=== PATIENT | male | born 1930 | race Caucasian/White ===

== ENCOUNTER 2018-06-04 09:36 | Observation (INO) | payer MEDICARE, OTHER ==
[2018-06-04] MEDS ORDERED: Diazepam TAB(*) 5 MG ONE (10:18)
[2018-06-04] MEDS ORDERED: ceFAZolin VIAL 1 GM in NS *SYRINGE * * 10 ML ONE (11:00)
[2018-06-04] MEDS ORDERED: ceFAZolin* 2 GM* X ONE DOSE - OR, MCH (Pyxis) (Duplex) IVPB (11:00)
[2018-06-04] MEDS ORDERED: Lidocaine 1% INJ* 10 MG/ML 30 ML SDV ONE (11:29)
[2018-06-04] MEDS ORDERED: fentaNYL* 50 MCG/ML 2 ML VIAL (100 MCG VIAL) ONE (11:29)
[2018-06-04] MEDS ORDERED: Midazolam* 1 MG/ML 10 ML VIAL (10 MG) ONE (11:29)
[2018-06-04] MEDS ORDERED: Iohexol 300* (CONTRAST) 10 ML SDV ONE (11:51)
[2018-06-04] MEDS ORDERED: Acetaminophen TAB* 325 MG PO PRN (13:18)
[2018-06-04] MEDS ORDERED: oxyCODONE/Acetamin 5/325 MG* TAB PO PRN (13:18)
[2018-06-04] MEDS: ceFAZolin 1 GM VIAL(*) 1 GM in NS 0.9% 50 ML* 50 ML IVPB SCH (20:28)
--- NOTE | 2018-06-04 20:59 | OP ---
DATE OF OPERATION: 06/04/18 - ROOM #443 DATE OF : 34 SURGEON: Earl Whitt MD. ANESTHESIA: Local anesthesia with conscious sedation. PRE-OP DIAGNOSIS: Atrial fibrillation, single-chamber pacemaker, ventricular lead fracture. POST-OP DIAGNOSIS: Atrial fibrillation, single-chamber pacemaker, ventricular lead fracture. OPERATIVE PROCEDURE: Right ventricular lead revision. ESTIMATED BLOOD LOSS: Nil. COMPLICATIONS: None. 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 He has chronic atrial fibrillation. The patient had a generator change of his pacemaker in November of 2016. He is followed by my office. The patient's right ventricular lead had shown increased noise consistent with lead fracture, right ventricular lead revision was recommended. DESCRIPTION OF PROCEDURE: The patient was brought to the procedure room in a fasting state. Informed consent had been obtained prior to the procedure. All labs had been reviewed. The patient's chest x-ray showed that he had a single lead to his right ventricle. The patient had a venogram done of the left veins showing patency of his axillary innominate veins. The patient's left pectoral area was prepped and draped in the usual fashion. 1% lidocaine was used for local anesthesia. A 4.5 cm incision was made at the superior aspect of the pacemaker. Blunt dissection was carried onto the fibrous sheath. The fibrous sheath was opened and the pacemaker was removed from the pocket. The pacemaker was detached from the ventricular lead. The ventricular lead is a [employer], model 2088TC , serial number [id number]. The right ventricular lead was abandoned and capped and sutured into the pocket. The axillary vein was entered by a modified Seldinger technique using ultrasound guidance. A guidewire was placed. Over the guidewire, a 7 Macedonian sheath introducer was placed, through which a right ventricular lead was advanced to the right ventricular septum. The new pacemaker lead is a [employer], model 2088TC, serial number [id number]. It had an R-wave sensitivity of 4.1, impendence 605 ohms, threshold 0.7 volts at 0.4 msec. The right ventricular lead was sutured to the pectoral fascia. The pocket was expanded using blunt dissection. The generator that was previously removed was attached to the new right ventricular lead. The existing pacemaker is a [employer], model VK0013. Device was placed in the pocket, the surgical incision was closed in 3 layers. The patient tolerated the procedure well with no complications. [id number]/[facility] #: [id number] [place]
[2018-06-05] MEDS: ceFAZolin 1 GM VIAL(*) 1 GM in NS 0.9% 50 ML* 50 ML IVPB SCH ×3 (05:09→11:41)
[2018-06-05 10:10] LABS: INR 1.1 (0.77-1.02)
--- NOTE | 2018-06-05 11:13 | DS ---
AMENDED REPORT NOW INCLUDES COSIGNER DESIGNATION DISCHARGE SUMMARY: DATE OF ADMISSION:06/04/2018 DATE OF DISCHARGE: Tentative Discharge date 06/05/2018 pending no complications. PRIMARY PROFESSIONAL CASTER: Dr. Ealr Whitt * (dictated by Keerthi Jimenez NP). PRIMARY PHYSICIAN: Dr. Gallardo with [facility]. ADMITTING DIAGNOSES: 1. Single chamber pacemaker with increase noise noted on recent device check suggestive of right ventricle lead fracture, here for right ventricle lead revision. 2. History of atrial fibrillation, CHADS-VASc 4, on Coumadin with goal INR 2 to 3, followed by [facility] Clinic at [facility] 3. History of hypertension, on losartan and nadolol therapy. 4. History of severe aortic stenosis, compensated on exam. DISCHARGE DIAGNOSES: 1. Single chamber pacemaker with history of right ventricle lead fracture, status post right ventricle lead revision on 06/04/[address] Earl Whitt. 2. History of atrial fibrillation, historically on Coumadin therapy, goal INR 2 to 3 3. Will be discharged home on prior Coumadin dose 5mg/day. INR is followed by [facility]. 3. 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 4. History of severe aortic stenosis, will follow up with Dr. Whitt 06/12/18. PROCEDURES PERFORMED: The patient had right ventricle lead revision performed by Dr. Earl Whitt on 06/04/18 due to history of tachy-lulú syndrome with single chamber pacemaker in situ, recent device check revealed increased noise consistent with lead fracture. The prior right ventricle lead was [employer] model #2088TC, serial #[id number]. The right ventricle lead was abandoned, capped, and sutured into pocket. The new right ventricle lead was placed into the right ventricle septum. New pacemaker lead is [employer] model 2088TC, serial #[id number]. The generator that was previously removed was attached to the new right ventricular lead. The existing pacemaker is a [employer]. The patient tolerated the procedure with no complications. This morning' s chest x-ray to rule out pneumothorax is pending. Dr. Earl Whitt personally reviewed download this morning to evaluate thresholds. COURSE OF HOSPITAL STAY: This is a pleasant 88-year-old male patient who follows with Dr. Earl Whitt of our practice due to history of tachy-lulú syndrome with single chamber [employer] pacemaker in situ. There was evidence of increased noise consistent with right ventricle lead fracture. Subsequently, the patient presented to [facility] for elective RV lead revision on 06/04/18. Prior to having procedure performed, he was bridged with Lovenox therapy. He underwent the above-mentioned procedure, post-procedure was transferred [facility] [place] where he has been monitored on telemetry. There were no events overnight. He offers no complaints. He is resting in his room, eating breakfast upon entering this morning with at bedside. He denies chest pain, dizziness, lightheadedness, palpitations, chest pain, incisional pain, or syncope. He has been up and ambulating with no complications. Most recent set of vital signs demonstrated a temperature of 98.4, pulse 70, respirations 16, oxygenation 97% on room air, blood pressure 136/63. This morning's chest x-ray is pending as is INR. Pending no complications, we anticipate discharging the patient home today in stable condition on low- cholesterol, low-fat diet. He is to follow up with Dr. Earl Whitt on 06/12/18 at 1 p.m. at our medical office building. I personally spoke to Elo at [facility] and updated her with information. She is aware that the patient will be going home on Coumadin without a bridge. His CHADS-VASc is 4 and he denies any history of TIA or CVA. He actually had bleeding complications over the weekend on Lovenox bridge from previous tooth extraction site. Pacemaker incision was inspected. No evidence of pocket hematoma. Edges are well approximated with randall in situ. Scant dried blood noted on dressing, which was changed. DISCHARGE RESTRICTIONS: No driving until further directed and follow up on with Dr. Earl Whitt. The patient was instructed to not shower for 48 hours. He may use sponge bath. He is to not saturate incisional site for 48 hours with water. He is to change dressing daily. He is to keep incision clean , dry, and intact for 2 weeks. He is instructed to use arm sling as directed for 3 weeks. He is to not lift more than 10 pounds for 2 weeks. He is to not lift more than 15 pounds for 8 weeks. He is to not lift left arm above shoulder for 2 weeks. He is to not lift left arm above head for 8 weeks. DISCHARGE MEDICATIONS; Per Discharge Med Rec. Please note he is to start Coumadin 5mg PO daily starting tonight. I personally called Elo with [facility] and updated her with dosing and today's INR. Patient has a standing prescription for PT/INR and is to get INR drawn on Monday as previously planned. NEW MEDICATIONS: Keflex 250 mg p.o. t.i.d. for 3 days was faxed into [facility]. Otherwise, he is to resume all prior home medications with the exception of Lovenox. Discharge Condition; stable. CXR this morning was negative for pneumothorax Dr. Earl Whitt agrees with the above assessment and plan. KEERTHI JIMENEZ NP [id number]/[facility] #: [id number] [place]
[2018-06-05] MEDS ORDERED: Iohexol 350* (CONTRAST) 500 ML MDV IV ONE (14:17)
[2018-06-05 14:40] LABS: ABS Basophils 0 10^3/ul (0-0.2); ABS Eosinophils 0.1 10^3/ul (0-0.6); ABS Lymphocytes 0.8 10^3/ul (1.0-4.8); ABS Monocytes 0.6 10^3/ul (0-0.8); ABS Neutrophils 5.6 10^3/ul (1.5-7.7); ABS Nucleated RBC 0 10^3/ul; Hematocrit 32 % (42-52); Lymphocyte % 10.5 %; Mean Corpuscular HGB Conc 34 g/dl (31-36); Mean Corpuscular Hemoglobin 41 pg (27-31); Mean Corpuscular Volume 120 fL (80-94); Mean Platelet Volume 8.2 fL (7.4-10.4); Nucleated Red Blood Cells % 0; Platelet Count 487 10^3/ul (150-450); Red Blood Count 2.71 10^6/ul (4.00-5.40); Red Cell Distribution Width 13 % (10.5-15); White Blood Count 7.1 10^3/ul (3.5-10.8)
[2018-06-05 14:44] LABS: BUN/Creatinine Ratio 20.2 (8-20); Calcium 9.3 mg/dL (8.6-10.3); EGFR African American 81.9 (>60); EGFR Non-African American 67.7 (>60); Potassium 3.9 mmol/L (3.5-5.0)
--- NOTE | 2018-06-05 15:49 | CONS ---
CONTINUATION ADDENDUM NOW INCLUDED ON THIS REPORT CC: Dr. Gallardo; Dr. Be; Dr. Whitt; Dr. Thomas * CONSULTATION REPORT: DATE OF CONSULT: 06/05/18 PRIMARY CARE PROVIDER: Dr. Gallardo. REASON FOR CONSULT: Possibility of TIA. HISTORY OF PRESENT ILLNESS: Walter Figueroa is an 88-year-old male who underwent pacemaker lead revision by Dr. Whitt yesterday on 06/04/18. He has a history of atrial fibrillation and usually is on Coumadin. He also has history of recent tooth surgery in the left mandibular region and due to that, his anticoagulation with Coumadin was interrupted last week. Patient stated that he was bridged subsequently with Lovenox, but 2 or 3 days into Lovenox treatment he bled in the area post the tooth surgery and anticoagulation had to be stopped from 06/01/18 till now. He has not taken Lovenox for over the weekend and on Monday, he was scheduled for the lead revision with Dr. Whitt. The lead revision went very well on 06/04/18 and patient was ready to go home, dressed up in his clothes in his hospital room, when family noted that the patient had troubles with word finding. He forgot the name of his medication that was Lovenox. That was ongoing for approximately 45 minutes until it resolved. Patient himself stated that he felt like he could not find words, but he also felt like visual changes with visual scotomas, as he would get when he had migraines in the past. Patient has a history of migraines when he was younger and those usually were associated with tingling in the left arm, going to the left chest, and then subsequent visual scotomas and a headache. Patient stated that later in age he would occasionally develop visual scotomas, but not that much of a headache. Today, he also had the scotomas together with the symptoms of speech difficulty and that resolved within 45 minutes. By the time he was evaluated by myself, his symptoms are resolved. Dr. Whitt asked the medicine service to see patient in consultation in regards to that. Patient also was seen by Dr. Thomas in consultation from neurology who recommended for the patient to stay for another 24 hours. Patient's discharge is going to be held and he is going to be continued to be admitted to medicine service on telemetry floor. PAST MEDICAL HISTORY: 1. History of atrial fibrillation, which is chronic. 2. History of status post pacemaker placement. Currently, patient is "99% paced." 3. History of BPH. 4. history of myelodysplastic syndrome, on hydroxyurea per Dr. Be. 5. Hypertension. ALLERGIES: "Cat dander, SOTALOL, RADHA INHIBITORS." RADHA INHIBITORS cause cough, the allergy to SOTALOL is unknown. FAMILY HISTORY: Reviewed and noncontributory. SOCIAL HISTORY: Patient lives with his , who is his surrogate. He drinks a glass of alcohol a day. He denies any tobacco or drug use. REVIEW OF SYSTEMS: Apart from the above-mentioned, patient denies any headache. He denies any chest pain or shortness of breath. He has sutures in the left subclavian area status post pacemaker lead revision with no significant pain. All the other 12 systems are reviewed with the patient and were, otherwise, negative. PHYSICAL EXAM: Blood pressure of 137/60, heart rate of 70 and regular, respiratory rate 16, oxygen saturation 97% on room air , temperature 97.8. General: Patient is a very pleasant 88-year-old male who is not in acute distress. Alert and oriented x3. HEENT: Pupils are equal, reactive to light and accommodation. Oropharynx clear, mucosa moist. Neck: Supple. No JVD. No bruits bilaterally. Cardiovascular: Regular rate and rhythm. No murmur. Respiratory: Clear to auscultation bilaterally. CONTINUATION ADDENDUM: PHYSICAL EXAM: General: The patient is a pleasant 88-year-old male, who is in no acute distress; alert, awake, and oriented x3. HEENT: Head atraumatic, normocephalic. Eyes: Pupils equal, reactive to light and accommodation. Oropharynx is clear. Mucosa moist. Neck: Supple. No JVD. No bruits bilaterally. Cardiovascular: Regular rate and rhythm with 3/6 systolic ejection murmur radiating to bilateral carotids. Respiratory: Clear to auscultation bilaterally. Abdomen: Soft, nontender. Bowel sounds present in all 4 quadrants. Extremities: There is no edema. Pulses are 2+ bilaterally. No clubbing or cyanosis. Neuro Evaluation: Speech clear. Cranial nerves II through XII grossly intact. Motor strength is 5/5 bilaterally. The patient has limitation of left upper extremity movement due to the recent pacemaker surgery. The patient's finger- to-nose is non-dysmetric, once again also with limitation of the restriction on the left upper extremity. On evaluation of the skin, the patient's pacemaker site is sutured with no evidence of dehiscence or cellulitis. The patient noted that he had an erythema on the bridge of his nose. He does have slight erythema there, possibly in a small area of hives approximately 2 cm in diameter. He had been just started on cefazolin. At this point, we will continue clindamycin for another couple of days postpacemaker and not use cephalosporin. Psychiatric Evaluation: The patient is alert and oriented x3 with no evidence of anxiety or depression. DIAGNOSTIC STUDIES/LAB DATA: Showed white blood cell count of 7.1, hemoglobin of 11.0, hematocrit of 32, MCV of 120, and platelets of 487. Sodium 135, potassium 3.9, chloride 99, carbon dioxide 29, BUN 21, and creatinine 1.04. The patient's EKG showed underlying AFib/flutter with paced QRS with a heart rate of 74 beats per minute, underlying right bundle branch block. Brain CT: Mild age appropriate chronic findings as described above without ____ __"acute intracranial abnormality ". ASSESSMENT AND PLAN: 1. The patient had an episode of problems with difficulty word finding, may be some slurred speech as described by her family with visual scotomas. At this point, the differential includes atypical migraine versus transient ischemic attack. With the patient's interrupted anticoagulation in the past week, it is difficult to determine. The patient cannot have an MRI due to his pacemaker. At this point, I appreciate Dr. Thomas's consultation and recommendation. The patient is to be observed on telemetry monitored bed with neuro checks for the next 24 hours. The patient is going to undergo CT angiogram of the head and neck, which has not been done yet. His brain CT is negative, which allows us to start him on bridging with anticoagulation with Lovenox. He is also going to be continued on Coumadin on a daily basis. 2. For the patient's history of atrial fibrillation and hypertension, losartan and nadolol are going to be continued as previously taken. 3. For deep vein thrombosis prophylaxis, the patient is going to be placed on Lovenox and Coumadin as mentioned above with INRs to be obtained daily. TIME SPENT: Approximately 65 minutes were spent on consultation of this patient , more than half of that time was spent on [id number] with the patient during the interview and physical exam. Than you very much for allowing our service to see your patient in consultation. We will follow with the patient on a daily basis. [id number]/[facility] #: [id number]- [id number]/[facility] #: [id number] [place]
[2018-06-05] MEDS: Enoxaparin(*) 80 MG/0.8 ML SYR SUBCUT SCH (16:14)
--- NOTE | 2018-06-05 16:22 | CONS ---
CC: Dr. Earl Whitt; Dr. Gallardo * CONSULTATION REPORT: DATE OF CONSULT: 06/04/18 PRIMARY CARDIOLOGY: Dr. Earl Whitt PRIMARY CARE PHYSICIAN: Dr. Gallardo REASON FOR CONSULT: Acute onset, brief episode of vision symptoms and speech difficulties. HISTORY OF PRESENT ILLNESS: Mr. 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 He had a right ventricle lead fracture and underwent an elective lead revision on 06/04. Prior to the procedure last week, he had been off of Coumadin from Monday. Week prior to Monday, he had a dental procedure, was started on Lovenox to bridge, but developed bleeding after the dental procedure and went off of the Lovenox over the weekend. It was felt he was safe to stay off of the Lovenox until Monday when he had his procedure. He was getting ready for discharge today when he was placed back on Coumadin with no Lovenox bridge with a goal INR of 2 to 3. Right before he was to leave, he developed acute onset of some positive scotoma that lasted a few minutes followed by some difficulty with his speech. His states that he had trouble getting words out. He is unclear whether he was trying to get words out or had difficulty thinking of the words he wanted to say. There was also the possibility of a very subtle left facial droop at that time. Symptoms lasted for 20 to 30 minutes per the family and then resolved. The patient notes a history of migraine headaches dating back many years. Most recently, he has not had any migraine pain, but he will occasionally get similar scotoma that last for a few minutes and then resolve. They are not associated with any other symptoms including no associated speech difficulties, no vision loss, no double vision, no problems speaking or swallowing, no focal numbness; tingling; or weakness. These happen occasionally. Typically, he will close his eyes for a few minutes and they will go away. He states that the initial symptoms today were very similar in nature to his migrainous phenomena, but the speech difficulties afterwards were atypical. He denies any prior history of TIA or stroke. His CHADs vascular score is 4. He has done well post procedure in the hospital, tolerated the procedure well, had no incisional pain. During his stay here, he denied any chest pain, any shortness of breath, any palpitations or dizziness, any lightheadedness. He had been ambulating fine with no difficulties. Vital signs were stable and he was ready for discharge. He was to be discharged home on a low-cholesterol, low-fat diet and he had instructions not to drive until further recommendations. He also has a followup appointment with Dr. Whitt on 06/12/18. He was to be followed by Elo at [facility] upon discharge. Currently, the patient is back to his usual state of health. His and son are at the bedside and confirm his story. His did witness the events. The patient specifically denies any associated symptoms, other than the scotoma and speech difficulties. He is unaware of any facial droop or focal numbness, tingling, or weakness. Again, never had any speech difficulties like this in the past. He has not developed any headache after the events and currently feels back to his baseline. He is ready to go home. PAST MEDICAL HISTORY: As noted above. PAST SURGICAL HISTORY: Includes the pacemaker placement and lead revision. MEDICATIONS: His discharge medications include Coumadin 5 mg p.o. daily starting tonight, Keflex 250 mg p.o. t.i.d. for 3 days. He was instructed to resume all of his prior medications including terazosin 2 mg at bedtime, nadolol 40 mg p.o. daily, losartan 50 mg daily, hydroxyurea 500 mg, calciferol. ALLERGIES: His allergies are to cat dander, SOTALOL, and RADHA INHIBITORS. FAMILY HISTORY: Negative for any strokes or heart attacks. His father of old age. REVIEW OF SYSTEMS: As noted above, he denies any loss of consciousness, headaches, vision changes other than the positive scotoma, hearing loss, swallowing problems, focal numbness; tingling; or weakness, chest pain, palpitations, shortness of breath, dyspnea on exertion, nausea, vomiting, diarrhea, constipation, abdominal pain, musculoskeletal pain, dysuria, frequency , urgency. He specifically denies any prior seizure risks including no history of head trauma, no issues, no family history of seizures, no prior seizures, no history of meningitis. PHYSICAL EXAM: Vital Signs: Temperature is 97.8. He has been afebrile. Blood pressure 136/63 to 137/60, pulse of 70, respiratory rate of 16, satting 97 % on room air. General: He is a well-nourished, well-developed gentleman, in no acute distress. He is sitting in his chair by the hospital bed. His family is at the bedside. He is well dressed, well groomed. He is very pleasant. HEENT: He is normocephalic, atraumatic. Sclerae are anicteric. Mucous membranes are moist. Oropharynx is clear. Good dentition. Nares are patent. Neck is supple. No thyromegaly, no carotid bruits, no meningismus. Chest: Clear to auscultation bilaterally. Cardiovascular: Regular rate and rhythm currently with a 2/6 systolic ejection murmur. Abdomen is soft and nontender. Extremities: There is no clubbing, cyanosis, or edema. His skin is warm and dry without lesions or bruising. His incision site in the left chest-shoulder area is clean, dry, and intact with bandage. On neurologic examination, he is awake, alert, oriented x3. His speech is fluent. There is no dysarthria. Repetition is intact. Recall of recent and remote events is intact. Vocabulary is intact. His mood is dysthymic. Affect and mood congruent. Cranial nerves II through XII: Pupils are equally round and reactive to light and accommodation. Extraocular muscles are intact with no nystagmus or diplopia. No ptosis is noted. Visual lira are full to confrontation. Facial sensation is intact to light touch. Face: He has a mild flattening of the right nasolabial fold. No left-sided facial weakness. Hearing is diminished bilaterally, but intact. Palate raises symmetrically. Tongue is midline. Sternocleido-mastoid and trapezius are 5/5. Motor Exam: He is 5/5 throughout with good tone and bulk. No drift is apparent in the upper and lower extremities. DTRs are down throughout, 1+ at the biceps, absent at the brachioradialis, absent at the patella, absent at the ankles. His sensation is intact to light touch and pinprick in all 4 extremities without focal deficits. [id number] and rapid alternating movements are intact without dysdiadochokinesia or dysmetria, no resting or action tremor. Gait: He has a normal gait. Good arm swing. Wide based. Romberg: Minimal sway with eyes open and close. DIAGNOSTIC STUDIES/LAB DATA: Lab work includes a CBC with diff with a hemoglobin of 10.5, hematocrit of 30, MCH of 42, platelet count of 455, lymphocyte percent of 8.5, absolute lymphocytes, 0.6. INR of 1.10, PTT of 53.1. CT scan of the brain is pending. ASSESSMENT AND PLAN: Mr. Watson is an 88-year-old gentleman with a history of atrial fibrillation with a pacemaker, history of hypertension, admitted to the hospital yesterday for lead fracture and revision. He underwent the procedure yesterday and did very well postoperatively. He has tolerated the procedure well. Prior to admission several days ago, he was taken off of his Coumadin for a dental procedure. Subsequently, put on Lovenox but after the dental procedure developed bleeding around his gums and teeth and the Lovenox was stopped over the weekend with the plan to resume Coumadin after his procedure. He does have a history of migrainous headaches and what sound like ophthalmic migraines with no headache that occur occasionally. Today, right before he was to go home, he developed symptoms similar in nature with positive scotoma, which he typically has. No headache associated with that. Subsequently, though, he developed approximately 30 minutes of some speech difficulties, possible left-sided facial droop per the which has now resolved. His speech is completely resolved. He feels back to baseline. Examination is, otherwise, nonfocal. Plan: In light of his history of atrial fibrillation, in light of the fact that he has been off of Coumadin for several days and is currently subtherapeutic, and the atypical nature of his symptoms, I do think we need to rule out several things. My suspicion, given the description of the events, is that he had another migrainous episode, but this time was associated with some speech difficulties as well. With that said, I cannot fully rule out a transient ischemic attack. The plan is to get a CT of the head to look for any evidence of bleeding. Assuming it is negative, we will plan to start Lovenox to bridge him until his Coumadin is therapeutic. I will get a CT angiogram of the head and neck to look for any evidence of large-vessel disease, atherosclerosis, or stenosis. I spoke with the blueprint cutter. At this point, given the fact that we are going to star him on full-strength anticoagulation and bridge him with Lovenox, I do not think there is any need to pursue an echocardiogram as it would not change attendant at this time. We plan to monitor him on telemetry overnight. We will monitor him with frequent neuro checks to look for any recurrent events. Consider further workup as necessary. If his CT of the head is negative, if his CT angiogram of the head and neck is negative, and if he does well overnight with no further events, I do think it is safe to send him home tomorrow with a Lovenox bridge until his Coumadin is therapeutic. I will be happy to follow him as an outpatient for his history of migraine headaches. I will continue to follow along and make further recommendations as necessary. Thank you for the opportunity to participate in the care of this very interesting patient. [id number]/[facility] #: [id number] [facility]
[2018-06-05] MEDS ORDERED: Warfarin TAB(*) 2.5 MG PO SCH (17:00)
--- NOTE | 2018-06-05 18:34 | CONS ---
CC: Dr. Whitt; Dr. Thomas CONSULTATION REPORT: ADDENDUM: DATE OF CONSULT: PHYSICAL EXAM: General: The patient is a pleasant 88-year-old male, who is in no acute distress; alert, awake, and oriented x3. HEENT: Head atraumatic, normocephalic. Eyes: Pupils equal, reactive to light and accommodation. Oropharynx is clear. Mucosa moist. Neck: Supple. No JVD. No bruits bilaterally. Cardiovascular: Regular rate and rhythm with 3/6 systolic ejection murmur radiating to bilateral carotids. Respiratory: Clear to auscultation bilaterally. Abdomen: Soft, nontender. Bowel sounds present in all 4 quadrants. Extremities: There is no edema. Pulses are 2+ bilaterally. No clubbing or cyanosis. Neuro Evaluation: Speech clear. Cranial nerves II through XII grossly intact. Motor strength is 5/5 bilaterally. The patient has limitation of left upper extremity movement due to the recent pacemaker surgery. The patient's finger- to-nose is non-dysmetric, once again also with limitation of the restriction on the left upper extremity. On evaluation of the skin, the patient's pacemaker site is sutured with no evidence of dehiscence or cellulitis. The patient noted that he had an erythema on the bridge of his nose. He does have slight erythema there, possibly in a small area of hives approximately 2 cm in diameter. He had been just started on cefazolin. At this point, we will continue clindamycin for another couple of days postpacemaker and not use cephalosporin. Psychiatric Evaluation: The patient is alert and oriented x3 with no evidence of anxiety or depression. DIAGNOSTIC STUDIES/LAB DATA: Showed white blood cell count of 7.1, hemoglobin of 11.0, hematocrit of 32, MCV of 120, and platelets of 487. Sodium 135, potassium 3.9, chloride 99, carbon dioxide 29, BUN 21, and creatinine 1.04. The patient's EKG showed underlying AFib/flutter with paced QRS with a heart rate of 74 beats per minute, underlying right bundle branch block. Brain CT: Mild age appropriate chronic findings as described above without ____ __"acute intracranial abnormality ". ASSESSMENT AND PLAN: 1. The patient had an episode of problems with difficulty word finding, may be some slurred speech as described by her family with visual scotomas. At this point, the differential includes atypical migraine versus transient ischemic attack. With the patient's interrupted anticoagulation in the past week, it is difficult to determine. The patient cannot have an MRI due to his pacemaker. At this point, I appreciate Dr. Thomas's consultation and recommendation. The patient is to be observed on telemetry monitored bed with neuro checks for the next 24 hours. The patient is going to undergo CT angiogram of the head and neck, which has not been done yet. His brain CT is negative, which allows us to start him on bridging with anticoagulation with Lovenox. He is also going to be continued on Coumadin on a daily basis. 2. For the patient's history of atrial fibrillation and hypertension, losartan and nadolol are going to be continued as previously taken. 3. For deep vein thrombosis prophylaxis, the patient is going to be placed on Lovenox and Coumadin as mentioned above with INRs to be obtained daily. TIME SPENT: Approximately 65 minutes were spent on consultation of this patient , more than half of that time was spent on [id number] with the patient during the interview and physical exam. Than you very much for allowing our service to see your patient in consultation. We will follow with the patient on a daily basis. [id number]/[facility] #: [id number] [place]
[2018-06-05] MEDS ORDERED: Cephalexin CAP* 250 MG PO SCH (21:00)
[2018-06-05] MEDS: Clindamycin CAP* 150 MG PO SCH (21:44)
[2018-06-06] MEDS: Enoxaparin(*) 80 MG/0.8 ML SYR SUBCUT SCH (05:20)
[2018-06-06] MEDS: Clindamycin CAP* 150 MG PO SCH (05:20)
[2018-06-06 05:58] LABS: INR 1.1 (0.77-1.02)
[2018-06-06] MEDS ORDERED: Losartan TAB* 25 MG PO SCH (06:00)
[2018-06-06] MEDS ORDERED: Nadolol TAB* 40 MG PO SCH (06:00)
[2018-06-06 10:42] VITALS: BP 142/68
--- NOTE | 2018-06-06 11:58 | DS ---
DISCHARGE SUMMARY ADDENDUM DATE OF ADMISSION: 06/04/18 DATE OF DICSCHARGE: 06/06/18 ATTENDING PROVIDER: Berta Abreu MD * (DICTATED BY EZEQUIEL MENDEZ NP) ADDENDUM: Upon [place] [facility] [place], patient complained of expressive aphasia with visual defect. Subsequently, Dr. Thomas, neurology was consulted. Unfortunately, due to pacemaker being noncompatible with MRI, he was not able to be risk stratified with MRI imaging; however, he did undergo CTA of head, which demonstrated 42% left internal carotid artery stenosis, 29% right internal carotid artery stenosis. There was no focal vascular occlusion or acute vascular abnormality per radiology report. I personally spoke with Dr. Thomas this morning. Patient has not had any further symptomatology and offers no complaints, except slight tautness involving device site with increased swelling. According to Dr. Thomas, he was okay with the patient being discharged home. He thought symptomatology was likely related to migraine; however, given inability to image with MRI, we are unable to rule out cardioembolic event. Patient verbalizes understanding. He is to go home with Lovenox 70 mg subcu b.i.d. in addition to Coumadin. His INR is to be drawn as previously directed on 06/08/18 with [facility]. In reference to complaints of device site tightness, site was inspected by myself and Dr. Abreu this morning. There was evidence of increased swelling consistent with small pocket hematoma. Dr. Abreu applied a pressure dressing to device site. Patient remains hemodynamically stable. Denies chest pain or shortness of breath. At this current time, patient is stable and is to be discharged home. He is to follow up with Dr. Whitt on 06/08/18 at 10:15 in the morning for evaluation of device site. INR is to be drawn as previously directed 06/08/18. Prescription for Lovenox and Keflex was called in to [facility]. Dr. Berta Abreu agrees with the above assessment and plan. EZEQUIEL MENDEZ NP [id number]/[facility] #: [id number] [facility]
[2018-06-06] MEDS ORDERED: Warfarin TAB(*) 5 MG PO SCH (17:00)
== END 2018-06-06 12:41 | disposition home or self-care (01) ==
LOC: CHICATH 09:36 → MEDTELE 13:18
PROVIDERS: ADMIT Specialist; ATTEND Specialist
DX: I48.91 Unspecified atrial fibrillation (principal); R47.01 Aphasia; H54.7 Unspecified visual loss; Z95.0 Presence of cardiac pacemaker; I10 Essential (primary) hypertension; Z79.01 Long term (current) use of anticoagulants; I35.0 Nonrheumatic aortic (valve) stenosis; I49.5 Sick sinus syndrome
CPT/HCPCS: 33216; 36415; 70450; 70496; 70498; 71045; 71046; 80048; 85025; 85610; 93005; 96374; 99156; 99157; A9270-GY; C1898; G0378; J0690; J1650; J2250; J3010; Q9967

== ENCOUNTER → 2018-06-15 13:15 | Day surgery (SDC) | payer MEDICARE, OTHER ==
[~2018-06-15 13:15] MED LIST: Diazepam TAB(*) 5 MG ONE; Diazepam TAB(*) 5 MG PO PRN; Lidocaine 1% INJ* 10 MG/ML 30 ML SDV ONE; Midazolam* 1 MG/ML 5 ML VIAL (5 MG) ONE; NS 0.9% 1000 ML** 1,000 ML IV SCH; ceFAZolin 1 GM/10 ML flush(*) SYRINGE for pocket flush (cardiology) FLUSH ONE; ceFAZolin 2 GM PREMIX in ORs 2 GM/50 ML BAG IVPB ONE; fentaNYL* 50 MCG/ML 2 ML VIAL (100 MCG VIAL) ONE
--- NOTE | 2018-06-15 15:27 | OP ---
DATE OF OPERATION: 06/15/18 - [facility] CATH DATE OF : 34 SURGEON: Dr. Earl Whitt. ANESTHESIA: Local anesthesia with conscious sedation. PRE-OP DIAGNOSIS: Pacer hematoma. POST-OP DIAGNOSIS: Pacer hematoma. OPERATIVE PROCEDURE: Pacer pocket hematoma evacuation. ESTIMATED BLOOD LOSS: Nil. COMPLICATIONS: None. INDICATIONS: The patient is an 88-year-old gentleman, who underwent a lead revision last week, who has been having progressively larger hematoma. Evacuation was recommended. DESCRIPTION OF PROCEDURE: The patient was brought to the operating room in a fasting state. Informed consent had been obtained prior to the procedure. All labs had been reviewed. The patient was placed supine on the procedure table. His left deltopectoral area was prepped and draped in usual fashion; 1% lidocaine was used for local anesthesia. An incision was made across the previous incision line and the pocket was opened. A large amount of old dry blood was expressed from the pocket. The pacemaker was removed from the pocket. The pocket was flushed with antibiotic-infused normal saline. The pacer was placed back into the pocket. The surgical incision was closed in three layers. The patient tolerated the procedure well. No complications. [id number]/[facility] #: [id number] [facility]
[2018-06-15 15:31] VITALS: BP 145/69
== END | disposition home or self-care (01) ==
LOC: CHICATH 13:15
PROVIDERS: ATTEND Specialist
DX: T82.897A Other specified complication of cardiac prosthetic devices, implants and grafts, initial encounter (principal); Y84.8 Other medical procedures as the cause of abnormal reaction of the patient, or of later complication, without mention of misadventure at the time of the procedure; I48.2 Chronic atrial fibrillation; Z95.0 Presence of cardiac pacemaker; Z79.899 Other long term (current) drug therapy; I10 Essential (primary) hypertension
CPT/HCPCS: 21501; 99156; A9270-GY; J0690; J2250; J3010

== ENCOUNTER 2018-07-01 12:45 | Emergency (ER) | payer MEDICARE, OTHER ==
--- OUTSIDE RECORDS SUMMARY | 2018-07-01 13:08 | XMS REPORT | Continuity of Care Document ---
:1930 External Reference #:[id number] Author Name Nini Hutchins Care Team Providers Name Role Phone Bigg Gallardo MD Primary Care Physician Unavailable Payers Date Identification Numbers Payment Provider Subscriber Policy Number: [id number] Medicare Salomon Keith PayID: [id number] [address] [place] [address] Policy Number: [id number] [employer] Salomon Keith Group Number: [id number] [address] PayID: [id number] [place] [address] Advance Directives Description No Information Available Problems Date Description Provider Status Onset: 02/05/2016 Atrial fibrillation Earl Whitt M.D. Active Onset: 02/05/2016 Cardiac pacemaker in situ Earl Whitt M.D. 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 Tobacco Use Start: Unknown Never Smoked Cigarettes Smoking Status Reviewed: 06/22/18 Never Smoked Cigarettes ETOH Use Currently consumes alcohol ETOH Use Occasionally consumes alcohol Tobacco Use Start: Unknown Patient has never smoked Recreational Drug Use Denies Drug Use Exercise Type/Frequency Walks 4 times a week 3 days week, strength training and PT Allergies, Adverse Reactions, Alerts Date Description Reaction Status Severity Comments 01/17/2014 Yogi Inhibitors respiratory reaction Active per [facility] notes 01/17/2014 Cat respiratory reaction Active per [facility] notes 01/17/2014 Sotalol Active per [facility] notes Medications Medication Date Status Form Strength Qnty SIG Indications Ordering Provider Hydroxyurea / Active Capsules 500mg 2 cap tues, Unknown 0000 thurs and 1 cap mon, wed,fri, sat, sun as directed ( Dr. Be) Losartan 00/00/ Active Tablets 50mg 90tabs 1 by mouth Unknown Potassium 0000 every day Nadolol 00/00/ Active Tablets 40mg 30tabs 1 by mouth Unknown 0000 every day Terazosin HCL 00/00/ Active Capsules 2mg 30caps 1 by mouth Unknown 0000 every night Warfarin 00/00/ Active Tablets 5mg 90tabs 5 mg Unknown Sodium 0000 through mon day . tuesdays 2 1/2mg ( adjusted [facility]) Vitamin D3 00/00/ Active 1000mg 1 cap po Unknown 0000 daily Vitamin B12 00/00/ Active 1 po Unknown 0000 occasional taken Keflex 06/15/ Hx Capsules 250mg 9caps 3 times a day Earl 2018 - for 3 days DRui Whitt 06/21/ .D. 2018 Lovenox 05/25/ Hx Solution 80mg/0.8ML 14unit 80 mg T82.110A Earl 2018 - s injection DRui Whitt 06/21/ twice a day M.D. 2018 from 11/29/18 thru 12/01/18 ( On Hold since 06/06/18) Keflex 12/05/ Hx Capsules 500mg 9caps 1 by mouth Earl 2016 - three times a D. Jose Eduardo, day for 3 M.D. 2016 days Digoxin / Hx 0.125mg 1 tablet po Unknown 0000 - daily 2016 Gemfibrozil / Hx Tablets 600mg 60tabs 1 tablet po Unknown 0000 - twice daily 2018 Viagra / Hx Tablets 100mg 12tabs by mouth 0.5 Unknown 0000 - or 1 tab 1h 02/03/ before 2016 intercourse Vitamin D / Hx Tablets 1000Unit 1 po 5 times Unknown 0000 - a week 2018 Medications Administered in Office Medication Date Status Form Strength Qnty SIG Indications Ordering Provider Inj, Administered Injection Earl Larkin Regadenoson, Christin Whitt M.D. 0.1 MG Technetium TC Administered Injection Earl Larkin 99M 018 Melvina Whitt Tetrofosmin, Per Unit Dose Up To 40 Millicuries Immunizations Description No Information Available Vital Signs Date Vital Result Comment 06/22/2018 12:46pm Height 68 inches 5'8" Weight 162.00 lb Heart Rate 60 /min BP Systolic Sitting 128 mmHg lue reg cuff BP Diastolic Sitting 78 mmHg lue reg cuff BP Systolic Standing 140 mmHg lue reg cuff BP Diastolic Standing 80 mmHg lue reg cuff Respiratory Rate 16 /min BMI (Body Mass Index) 24.6 kg/m2 Ejection Fraction 55-60% echo. 01/12/17 06/15/2018 12:02pm Height 68 inches 5'8" Weight 162.00 lb without shoes Heart Rate 60 /min BP Systolic Sitting 148 mmHg Rue reg cuff BP Diastolic Sitting 78 mmHg Rue reg cuff BP Systolic Standing 160 mmHg Rue reg cuff BP Diastolic Standing 70 mmHg Rue reg cuff Respiratory Rate 15 /min BMI (Body Mass Index) 24.6 kg/m2 Ejection Fraction 55-60% date 01/12/17 ECHO 06/12/2018 12:59pm Height 68 inches 5'8" Weight 165.50 lb with shoes Heart Rate 72 /min BP Systolic 138 mmHg Rue BP Diastolic 84 mmHg Rue BMI (Body Mass Index) 25.2 kg/m2 Ejection Fraction 49% Nuclear stress test 05/19/2017 06/08/2018 10:16am Height 68 inches 5'8" Weight 166.00 lb BP Systolic Sitting 130 mmHg Rue reg cuff BP Diastolic Sitting 90 mmHg Rue reg cuff BP Systolic Standing 130 mmHg Rue reg cuff BP Diastolic Standing 80 mmHg Rue reg cuff Respiratory Rate 16 /min BMI (Body Mass Index) 25.2 kg/m2 Ejection Fraction 55-60% 01/12/17 echo 06/07/2018 12:38pm Height 68 inches 5'8" Weight 166.00 lb with shoes Heart Rate 68 /min BP Systolic 118 mmHg Rue reg cuff BP Diastolic 70 mmHg Rue reg cuff BP Systolic Sitting 124 mmHg Rue reg cuff BP Diastolic Sitting 70 mmHg Rue reg cuff Respiratory Rate 16 /min BMI (Body Mass Index) 25.2 kg/m2 05/25/2018 8:35am Height 68 inches 5'8" Weight 172.00 lb with shoes Heart Rate 68 /min BP Systolic Sitting 140 mmHg Lue reg cuff BP Diastolic Sitting 70 mmHg Lue reg cuff BP Systolic Standing 150 mmHg Lue reg cuff BP Diastolic Standing 70 mmHg Lue reg cuff BMI (Body Mass Index) 26.1 kg/m2 Ejection Fraction 55-60% 01/12/2017 08/04/2017 11:21am Height 68 inches 5'8" Weight 163.00 lb Heart Rate 66 /min BP Systolic Sitting 122 mmHg lue reg cuff BP Diastolic Sitting 58 mmHg lue reg cuff BP Systolic Standing 120 mmHg lue reg cuff BP Diastolic Standing 68 mmHg lue reg cuff Respiratory Rate 16 /min Pain Level 1 overall body and in legs BMI (Body Mass Index) 24.8 kg/m2 Ejection Fraction 55-60% 01/12/2017 echo 04/25/2017 1:44pm Height 68 inches 5'8" Weight 169.00 lb w/ boots Heart Rate 78 /min BP Systolic Sitting 158 mmHg lue reg cuff BP Diastolic Sitting 82 mmHg lue reg cuff Respiratory Rate 18 /min BMI (Body Mass Index) 25.7 kg/m2 Ejection Fraction 55-60% echo 01/12/17 01/03/2017 2:01pm Height 68 inches 5'8" Weight 164.00 lb with shoes Heart Rate 72 /min BP Systolic Sitting 128 mmHg rue reg cuff BP Diastolic Sitting 70 mmHg rue reg cuff BP Systolic Standing 140 mmHg rue reg cuff BP Diastolic Standing 80 mmHg rue reg cuff Respiratory Rate 16 /min BMI (Body Mass Index) 24.9 kg/m2 Ejection Fraction 60-65% echo 01/21/14 12/19/2016 12:33pm Height 68 inches 5'8" Weight 164.00 lb w/ shoes Heart Rate 64 /min reg BP Systolic Sitting 140 mmHg Lue, reg cuff BP Diastolic Sitting 76 mmHg Lue, reg cuff Respiratory Rate 16 /min BMI (Body Mass Index) 24.9 kg/m2 Ejection Fraction 60-65% as of 01/21/14 echo 12/13/2016 12:47pm Height 68 inches 5'8" Weight 166.00 lb w/ shoes Heart Rate 60 /min reg BP Systolic Sitting 122 mmHg Lue, reg cuff BP Diastolic Sitting 76 mmHg Lue, reg cuff BP Systolic Standing 128 mmHg Lue BP Diastolic Standing 70 mmHg Lue Respiratory Rate 16 /min BMI (Body Mass Index) 25.2 kg/m2 Ejection Fraction 60-65% as of 12/2013 echo 12/02/2016 10:46am Height 68 inches 5'8" Weight 163.00 lb w/ shoes Heart Rate 66 /min BP Systolic Sitting 126 mmHg Lue, reg cuff BP Diastolic Sitting 68 mmHg Lue, reg cuff BP Systolic Standing 110 mmHg Lue BP Diastolic Standing 68 mmHg Lue Respiratory Rate 16 /min BMI (Body Mass Index) 24.8 kg/m2 Ejection Fraction 60-65% as of 2013 echo 02/05/2016 10:02am Height 68 inches 5'8" Weight 162.00 lb without shoes Heart Rate 66 /min BP Systolic Sitting 136 mmHg Ra reg cuff BP Diastolic Sitting 82 mmHg Ra reg cuff BP Systolic Standing 136 mmHg Ra reg cuff BP Diastolic Standing 78 mmHg Ra reg cuff Respiratory Rate 16 /min BMI (Body Mass Index) 24.6 kg/m2 Ejection Fraction 60-65% date 01/21/2014 ECHO 01/22/2015 10:54am Height 68 inches 5'8" Weight 167.00 lb no shoes Heart Rate 70 /min BP Systolic Sitting 136 mmHg LA, reg cuff BP Diastolic Sitting 78 mmHg LA, reg cuff BP Systolic Standing 136 mmHg LA BP Diastolic Standing 80 mmHg LA Respiratory Rate 16 /min BMI (Body Mass Index) 25.4 kg/m2 Ejection Fraction 60-65% 01/21/14 01/17/2014 3:46pm Height 68 inches 5'8" Weight 169.00 lb without shoes Heart Rate 56 /min BP Systolic 130 mmHg Ra reg cuff BP Diastolic 60 mmHg Ra reg cuff BP Systolic Sitting 126 mmHg La reg cuff BP Diastolic Sitting 66 mmHg La reg cuff BP Systolic Standing 126 mmHg BP Diastolic Standing 70 mmHg Respiratory Rate 15 /min BMI (Body Mass Index) 25.7 kg/m2 Results Test Date Facility Test Result H/L Range Note Cell Morphology [facility] Macrocytosis 3+ [address] [place] [address] [phone] Pre Cath Panel [facility] Partial Thrombo 35.3 seconds N 26.0-36.[address] [place] [address] [phone] CBC Auto Diff [facility] White Blood Count 5.9 10^3/ uL N 3.5-10.[address] [place] [address] [phone] Red Blood Count 2.57 10^6/uL Low 4.00-5.40 Hemoglobin 10.8 g/dL Low 14.0-18.0 Hematocrit 31 % Low 42-52 Mean Corpuscular Volume 121 fL High 80-94 1 Mean Corpuscular Hemoglobin 42 pg High 27-31 Mean Corpuscular HGB Conc 35 g/dL N 31-36 Red Cell Distribution Width 12 % N 10.5-15 Platelet Count 400 10^3/uL N 150-450 Mean Platelet Volume 8.6 fL N 7.4-10.4 Abs Neutrophils 4.6 10^3/uL N 1.5-7.7 Abs Lymphocytes 0.7 10^3/uL Low 1.0-4.8 Abs Monocytes 0.4 10^3/uL N 0-0.8 Abs Eosinophils 0.1 10^3/uL N 0-0.6 Abs Basophils 0 10^3/uL N 0-0.2 Abs Nucleated RBC 0 10^3/uL Granulocyte % 78.0 % Lymphocyte % 12.3 % Monocyte % 7.4 % Eosinophil % 1.5 % Basophil % 0.8 % Nucleated Red Blood Cells % 0.1 Basic Metabolic Panel 05/29/2018 [facility] Sodium 138 mmol/L N 135-145 [address] [place] [address] [phone] Potassium 4.7 mmol/L N 3.5-5.0 Chloride 103 mmol/L N 101-111 Co2 Carbon Dioxide 29 mmol/L N 22-32 Anion Gap 6 mmol/L N 2-11 Glucose 85 mg/dL N 70-100 Blood Urea Nitrogen 28 mg/dL High 6-24 Creatinine 0.99 mg/dL N 0.67-1.17 BUN/Creatinine Ratio 28.3 High 8-20 Calcium 9.3 mg/dL N 8.6-10.3 Egfr Non- 71.7 >60 Egfr 86.7 >60 2 Inr/Protime 05/29/2018 [facility] Inr 1.49 High 0.77-1.02 [address] [place] [address] [phone] Laboratory test finding 04/02/2018 [facility] LDH 185 U/L N 140-271 [address] [place] [address] [phone] Direct Jatinder NEGATIVE CBC Auto 04/02/2018 [facility] Red Blood 2.40 10^6/uL Low 4.00 -5.[address] [place] [address] [phone] White Blood Count 6.7 10^3/uL N 3.5-10.8 Hemoglobin 10.3 g/dL Low 14.0-18.0 Hematocrit 30 % Low 42-52 Mean Corpuscular Volume 126 fL High 80-94 3 Mean Corpuscular Hemoglobin 43 pg High 27-31 Mean Corpuscular HGB Conc 34 g/dL N 31-36 Red Cell Distribution Width 14 % N 10.5-15 Platelet Count 328 10^3/uL N 150-450 Mean Platelet Volume 8.3 fL N 7.4-10.4 Abs Neutrophils 5.4 10^3/uL N 1.5-7.7 Abs Lymphocytes 0.7 10^3/uL Low 1.0-4.8 Abs Monocytes 0.4 10^3/uL N 0-0.8 Abs Eosinophils 0.1 10^3/uL N 0-0.6 Abs Basophils 0 10^3/uL N 0-0.2 Abs Nucleated RBC 0 10^3/uL Granulocyte % 81.2 % Lymphocyte % 10.7 % Monocyte % 6.2 % Eosinophil % 1.3 % Basophil % 0.6 % Nucleated Red Blood Cells % 0.1 Laboratory test 04/02/2018 [facility] Haptoglobin <14 mg/dL Abnormal 30 - [address] [place] [address] [phone] Retic Count 04/02/2018 [facility] Retic Count 0.8 % N 0.5-1.[address] [place] [address] [phone] Mean Retic Volume 166.1 Immature Retic Fraction 0.54 RBC Retic Count 2.40 10^6/uL Low 4.6-6.2 Corrected Retic Count 0.5 % N 0.5-1.5 Maturation Factor Retic 1.5 Retic Index 0.30 Hematocrit for Retic CNT 30 % Low 42-52 Laboratory test 12/05/2016 [facility] Surgical SEE RESULT [address] [place] [address] [phone] Basic Metabolic 12/02/2016 [facility] Sodium 135 mmol/L N 133- [address] [place] [address] [phone] Potassium 4.6 mmol/L N 3.5-5.0 Chloride 103 mmol/L N 101-111 Co2 Carbon Dioxide 28 mmol/L N 22-32 Anion Gap 4 mmol/L N 2-11 Glucose 93 mg/dL N 70-100 Blood Urea Nitrogen 30 mg/dL High 6-24 Creatinine 0.88 mg/dL N 0.67-1.17 BUN/Creatinine Ratio 34.1 High 8-20 Calcium 9.0 mg/dL N 8.6-10.3 Egfr Non- 82.5 N >60 Egfr 106.1 N >60 6 Inr/Protime 12/02/2016 [facility] Inr 2.76 High 0.89-1.[address] [place] [address] [phone] CBC Auto Diff 12/02/2016 [facility] White Blood 5.6 N 3.5- 10.[address] Count 10^3/[place] [address] [phone] Red Blood Count 2.53 10^6/uL Low 4.0-5.4 Hemoglobin 10.6 g/dL Low 14.0-18.0 Hematocrit 31 % Low 42-52 Mean Corpuscular Volume 121 fL High 80-94 7 Mean Corpuscular Hemoglobin 42 pg High 27-31 Mean Corpuscular HGB Conc 34 g/dL N 31-36 Red Cell Distribution Width 14 % N 10.5-15 Platelet Count 419 10^3/uL N 150-450 Mean Platelet Volume 9 um3 N 7.4-10.4 Abs Neutrophils 4.2 10^3/uL N 1.5-7.7 Abs Lymphocytes 0.8 10^3/uL Low 1.0-4.8 Abs Monocytes 0.5 10^3/uL N 0-0.8 Abs Eosinophils 0.1 10^3/uL N 0-0.6 Abs Basophils 0 10^3/uL N 0-0.2 Abs Nucleated RBC 0 10^3/uL N Granulocyte % 74.8 % N 38-83 Lymphocyte % 14.8 % Low 25-47 Monocyte % 8.6 % N 1-9 Eosinophil % 1.6 % N 0-6 Basophil % 0.2 % N 0-2 Nucleated Red Blood Cells % 0.1 N Pre Cath 12/02/2016 [facility] Partial 47.5 seconds High 26.0- 36.[address] [place] [address] PTT [phone] Consistent with Previous Results Reported on 05/02/18 2 Because ethnic data is not always readily available, this report includes an eGFR for both -Americans and non- Americans. The National Kidney Disease Education Program (NKDEP) does not endorse the use of the MDRD equation for patients that are not between the ages of 18 and 70, are , have extremes of body size, muscle mass, or nutritional status, or are non- or non-. According to the National Kidney Foundation, irrespective of diagnosis, the stage of the disease is based on the level of kidney function: Stage Description GFR(mL/min/1.73 m(2)) 1 Kidney damage with normal or decreased GFR 90 2 Kidney damage with mild decrease in GFR 60-89 3 Moderate decrease in GFR 30-59 4 Severe decrease in GFR 15-29 5 Kidney failure <15 (or dialysis) 3 Consistent with Previous Results Reported on 01/26/18 4 Test Performed by: [address] [address] 5 SEE RESULT BELOW Name: SALOMON BARRIENTOS : [address]: Earl Whitt MD Acct: [id number] Unit: [id number] AGE: 86 Location: [facility] Re12/05/16 SEX: M Status: REG REF SPEC: [id number] HANNA: 12/05/16-[address]: Earl Whitt MD REQ: [id number] RECD: 12/05/161236 STATUS: SOUT _ ORDERED: LEVEL [address] [facility] generator, removal: Foreign body ([facility] generator) (Gross diagnosis). CLINICAL HISTORY No history given GROSS DESCRIPTION The specimen is received fresh with no source identified and a requisition labeled, Pacemaker Generator, and consists of a 5.1 x 4.8 by up to 0.8 cm banks metallic medical aide. The following inscription is identified: [facility] ACCENT SR RF [id number] SSIR S/N [id number]. Per established hospital medical staff protocol, no tissue is submitted. Gross only. Signed (signature on file) Prateek Brown MD 0948 END OF REPORT * ML=Testing performed at Main Lab DEPARTMENT OF PATHOLOGY, [address] [place] [address] Prateek Brown M.D. Director [facility] # [id number] 6 Because ethnic data is not always readily available, this report includes an eGFR for both -Americans and non- Americans. The National Kidney Disease Education Program (NKDEP) does not endorse the use of the MDRD equation for patients that are not between the ages of 18 and 70, are , have extremes of body size, muscle mass, or nutritional status, or are non- or non-. According to the National Kidney Foundation, irrespective of diagnosis, the stage of the disease is based on the level of kidney function: Stage Description GFR(mL/min/1.73 m(2)) 1 Kidney damage with normal or decreased GFR 90 2 Kidney damage with mild decrease in GFR 60-89 3 Moderate decrease in GFR 30-59 4 Severe decrease in GFR 15-29 5 Kidney failure <15 (or dialysis) 7 Adult MCV greater than 105 fl incubated 1/2 hr at 37c without significant change. 8 today non-fasting ok Procedures Date Code Description Status 06/12/2018 42026 EKG Tracing & Interpretation Completed 06/05/2018 80220 Icd Eval Sing,Dual,Multi Lead Remote Recpt Transm Tech Rev Completed Tech S 06/05/2018 02385 Pacemaker Check Remote Up To 90Days Single,Dual,Multiple Completed Lead 06/04/2018 86256 Insrt/Replce/Repostn PMKR/Aicd - Atrial/Ventricular Completed 12/28/2017 50082 Pace Maker Eval W/Iterative Adjustment Single Lead Completed 12/28/2017 32960 Pace Maker Eval W/Iterative Adjustment Single Lead Completed 08/04/2017 45530 EKG Tracing & Interpretation Completed 07/12/2017 22003 Interrogation Device Eval In Person W/DR Completed Analysis,Single,Dual,Mul 07/12/2017 80969 Interrogation Device Eval In Person W/DR Completed Analysis,Single,Dual,Mul 06/12/2017 81790 Pacemaker Check Remote Up To 90Days Single,Dual,Multiple Completed Lead 06/12/2017 76072 Icd Eval Sing,Dual,Multi Lead Remote Recpt Transm Tech Rev Completed Tech S 05/19/2017 32610 Stress Test Completed 05/19/2017 98916 Myocardial Perfusion Imaging Tomographic (Spect) Multiple Completed Studies 01/12/2017 82178 ECHO Transthoracic, Real-Time 2D With Doppler And Color Completed Flow 01/12/2017 05226 ECHO Transthoracic, Real-Time 2D With Doppler And Color Completed Flow 01/03/2017 48002 EKG Tracing & Interpretation Completed 12/28/2016 36521 Pace Maker Eval W/Iterative Adjustment Single Lead Completed 12/28/2016 83037 Pace Maker Eval W/Iterative Adjustment Single Lead Completed 12/05/2016 11941 Removal Pacemaker W/Replacement Of Pacemaker Pulse Completed Generator 11/23/2016 98559 Pace Maker Eval W/Iterative Adjustment Single Lead Completed 09/23/2016 29406 Interrogation Device Eval In Person W/ Completed Analysis,Single,Dual,Mul 07/08/2016 67406 Pace Maker Eval W/Iterative Adjustment Single Lead Completed 04/07/2016 85659 Icd Eval Sing,Dual,Multi Lead Remote Recpt Transm Tech Rev Completed Tech S 04/07/2016 82982 Pacemaker Check Remote Up To 90Days Single,Dual,Multiple Completed Lead 02/05/2016 83629 EKG Tracing & Interpretation Completed 01/07/2016 61694 Pace Maker Eval W/Iterative Adjustment Single Lead Completed 07/21/2015 51190 Icd eval w/iterative adjment single lead Icd Completed 02/12/2015 35018 Pacemaker Check Remote Up To 90Days Single,Dual,Multiple Completed Lead 02/12/2015 40389 Icd Eval Sing,Dual,Multi Lead Remote Recpt Transm Tech Rev Completed Tech S 01/22/2015 82930 EKG Tracing & Interpretation Completed 01/21/2015 65533 Interrogation Device Eval In Person W/ Completed Analysis,Single,Dual,Mul 08/18/2014 06853 Icd Eval Sing,Dual,Multi Lead Remote Recpt Transm Tech Rev Completed Tech S 08/18/2014 56324 Pacemaker Check Remote Up To 90Days Single,Dual,Multiple Completed Lead 07/29/2014 31724 Interrogation Device Eval In Person W/ Completed Analysis,Single,Dual,Mul 01/23/2014 83177 Pace Maker Eval W/Iterative Adjustment Single Lead Completed 01/21/2014 16687 ECHO Transthoracic, Real-Time 2D With Doppler And Color Completed Flow 01/17/2014 59083 EKG Tracing & Interpretation Completed Encounters Type Date Location Provider Dx Diagnosis Office Visit 06/07/2018 [facility] Berta Abreu, Z95.0 Presence of 12:45p Of Stephy Hein cardiac pacemaker I48.2 Chronic atrial fibrillation Office Visit 06/05/2018 2:49p [facility] Mata Larkin R47.89 Other speech Of Stephy Whitt M.D. disturbances H53.9 Unspecified visual disturbance Office Visit 05/25/2018 9:00a Rafi Larkin I48.2 Chronic atrial Of Stephy Whitt M.D. fibrillation Z95.0 Presence of cardiac pacemaker T82.110A Breakdown (mechanical) of cardiac electrode, init encntr Office Visit 08/04/2017 11:45a [facility] Earl Larkin Z95.0 Presence of Of Stpehy Whitt M.D. cardiac pacemaker I48.2 Chronic atrial fibrillation I35.0 Nonrheumatic aortic (valve) stenosis Office Visit 04/25/2017 1:45p [facility] Earl Larkin I48.[address] [facility] Melvina Whitt fibrillation Z95.0 Presence of cardiac pacemaker I47.2 Ventricular tachycardia I35.0 Nonrheumatic aortic (valve) stenosis Office Visit 12/02/2016 11:00a [facility] MAKSIM Huang Z95.0 Presence of Of [facility] cardiac pacemaker R42 Dizziness and giddiness I34.0 Nonrheumatic mitral (valve) insufficiency Office Visit 02/05/2016 11:00a [facility] Earl Larkin Z95.0 Presence of Of Stephy Whitt M.D. cardiac pacemaker I48.91 Unspecified atrial fibrillation Office Visit 01/22/2015 11:15a [facility] Earl Larkin I48.2 Chronic atrial Of Stephy Whitt M.D. fibrillation Office Visit 01/17/2014 4:00p [facility] Earl Larkin 427.31 Atrial Of Stephy Whitt M.D. Fibrillation 424.0 Mitral Valve Disorder Plan of Treatment Future Appointment(s):07/03/2018 1:45 pm - Earl Whitt M.D. at [facility] [place]/22/2018 - Roshni Beckham, N.P.Z95.0 Presence of cardiac pacemakerFollow up:1 week OV Jose Eduardo or Roshni (when Brand in office) .Recommendations:no lifting with L arm.I48.2 Chronic atrial wegwicchuyuaG02.5 Sick sinus syndrome
--- OUTSIDE RECORDS SUMMARY | 2018-07-01 13:09 | XMS REPORT | Continuity of Care Document ---
:1930 External Reference #:[id number] Author Name Dolores Huff Care Team Providers Name Role Phone Bigg Gallardo MD Primary Care Physician Unavailable Payers Date Identification Numbers Payment Provider Subscriber Policy Number: [id number] Medicare Lionel Keith PayID: [id number] [address] [place] [address] Policy Number: [id number] [employer] Lionel Keith Group Number: [id number] [address] PayID: [id number] [place] [address] Advance Directives Description No Information Available Problems Date Description Provider Status Onset: 02/05/2016 Atrial fibrillation Earl Whitt M.D. Active Onset: 02/05/2016 Cardiac pacemaker in situ Earl Whitt M.D. 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 Tobacco Use Start: Unknown Never Smoked Cigarettes Smoking Status Reviewed: 06/12/18 Never Smoked Cigarettes ETOH Use Currently consumes 5x week alcohol Tobacco Use Start: Unknown Patient has never smoked Recreational Drug Use Denies Drug Use Exercise Type/Frequency Walks 4 times a week 3 days week, strength training and PT Allergies, Adverse Reactions, Alerts Date Description Reaction Status Severity Comments 01/17/2014 Yogi Inhibitors respiratory reaction Active per [facility] 01/17/2014 Cat respiratory reaction Active per [facility] 01/17/2014 Sotalol Active per [facility] Medications Medication Date Status Form Strength Qnty SIG Indications Ordering Provider Lovenox 05/25/ Active Solution 80mg/0.8ML 14unit 80 mg T82.110A Earl 2019 s injection D. Brand, twice a day M.D. from 11/29/18 thru 12/01/18 ( On Hold since 06/06/18) Hydroxyurea 00/ Active Capsules 500mg 2 cap , Unknown 0000 th and 1 cap mon, mon,mon, sat, sun as directed ( Dr. Be) Losartan 00/00/ Active Tablets 50mg 90tabs 1 by mouth Unknown Potassium 0000 every day Nadolol 0000/ Active Tablets 40mg 30tabs 1 by mouth Unknown 0000 every day Terazosin HCL 00/ Active Capsules 2mg 30caps 1 by mouth Unknown 0000 every night Warfarin 00/ Active Tablets 5mg 90tabs 5 mg Unknown Sodium 0000 through mon day . tuesdays 2 1/2mg ( adjusted [facility]) Vitamin D3 00/ Active 1000mg 1 cap po Unknown 0000 daily Vitamin B12 0000/ Active 1 po Unknown 0000 occasional taken Keflex 12/05/ Hx Capsules 500mg 9caps 1 by mouth Earl 2016 - three times a D. Jose Eduardo, 12/11/ day for 3 M.D. 2016 days Digoxin / Hx 0.125mg 1 tablet po Unknown 0000 - daily 2016 Gemfibrozil / Hx Tablets 600mg 60tabs 1 tablet po Unknown 0000 - twice daily 2018 Viagra 00/ Hx Tablets 100mg 12tabs by mouth 0.5 [...] Available Vital Signs Date Vital Result Comment 06/12/2018 12:59pm Height 68 inches 5'8" Weight [...] Date Facility Test Result H/L Range Note Pre Cath 05/29/2018 [facility] Partial 35.3 seconds N 26.0- 36.[address] [place] [address] PTT [phone] CBC Auto Diff 05/29/2018 [facility] White Blood 5.9 10^3/uL N 3.5-10.[address] [place] [address] [phone] Red Blood Count 2.57 10^6/uL Low 4.00-5.40 [...] % Nucleated Red Blood Cells % 0.1 Inr/Protime 05/29/2018 [facility] Inr 1.49 High 0.77-1.[address] [place] [address] [phone] Basic Metabolic 05/29/2018 [facility] Sodium 138 mmol/L N 135- 145 Panel [address] [place] [address] [phone] Potassium 4.7 mmol/L N 3.5-5.0 Chloride 103 mmol/L N 101-111 Co2 Carbon Dioxide 29 mmol/L N 22-32 Anion Gap 6 mmol/L N 2-11 Glucose 85 mg/dL N 70-100 Blood Urea Nitrogen 28 mg/dL High 6-24 Creatinine 0.99 mg/dL N 0.67-1.17 BUN/Creatinine Ratio 28.3 High 8-20 Calcium 9.3 mg/dL N 8.6-10.3 Egfr Non- 71.7 >60 Egfr 86.7 >60 2 Cell Morphology 05/29/2018 [facility] Macrocytosis 3+ [address] [place] [address] [phone] Laboratory test 04/02/2018 [facility] LDH 185 U/L N 140-271 finding [address] [place] [address] [phone] Direct Jatinder NEGATIVE CBC Auto 04/02/2018 [facility] Red Blood 2.40 10^6/uL Low 4.00 -5.[address] [place] [address] [phone] White Blood Count 6.7 10^3/uL N 3.5-10.8 [...] % Nucleated Red Blood Cells % 0.1 Retic Count 04/02/2018 [facility] Retic Count 0.8 % N 0.5-1.[address] [place] [address] [phone] Mean Retic Volume 166.1 Immature Retic Fraction 0.54 RBC Retic Count 2.40 10^6/uL Low 4.6-6.2 Corrected Retic Count 0.5 % N 0.5-1.5 Maturation Factor Retic 1.5 Retic Index 0.30 Hematocrit for Retic CNT 30 % Low 42-52 Laboratory 04/02/2018 [facility] Haptoglobin <14 mg/dL Abnormal 30 - [address] [place] [address] [phone] Laboratory 12/05/2016 [facility] Surgical SEE RESULT 5 test finding [address] [facility] [place] [address] [phone] Basic 12/02/2016 [facility] Sodium 135 mmol/L N 133-[address] [place] [address] [phone] Potassium 4.6 mmol/L N 3.5-5.0 Chloride 103 mmol/L N 101-111 Co2 Carbon Dioxide 28 mmol/L N 22-32 Anion Gap 4 mmol/L N 2-11 Glucose 93 mg/dL N 70-100 Blood Urea Nitrogen 30 mg/dL High 6-24 Creatinine 0.88 mg/dL N 0.67-1.17 BUN/Creatinine Ratio 34.1 High 8-20 Calcium 9.0 mg/dL N 8.6-10.3 Egfr Non- 82.5 N >60 Egfr 106.1 N >60 6 Inr/Protime 12/02/2016 [facility] Inr 2.76 High 0.89-1.[address] [place] [address] [phone] CBC Auto Diff 12/02/2016 [facility] White Blood 5.6 N 3.5- 10.[address] Count 10^3/[place] [address] [phone] Red Blood Count 2.53 10^6/uL Low 4.0-5.4 [...] Cells % 0.1 N Pre Cath 12/02/2016 [facility] Partial 47.5 seconds High 26.0- 36.3 [address] [place] [address] PTT [phone] Consistent with Previous Results Reported on [...] Reported on 01/26/18 4 Test Performed by: [facility] [address] [facility], [place] [address] 5 SEE RESULT BELOW Name: LIONEL BARRIENTOS : [address]: Earl Whitt MD Acct: [id number] Unit: [id number] AGE: 86 Location: [facility] Re12/05/16 SEX: M Status: REG REF SPEC: [id number] HANNA: 12/05/16-[address] [facility] [address]: Earl Whitt MD REQ: [id number] RECD: 12/05/16-1236 STATUS: SOUT _ ORDERED: LEVEL [address] [facility] generator, removal: Foreign body ([facility] [facility] generator) (Gross diagnosis). 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 The following inscription is identified: [facility] ACCENT SR RF [id number] SSIR S/N [id number]. Per established hospital medical staff protocol, no tissue is submitted. Gross only. Signed (signature on file) Prateek Brown MD 0948 END OF REPORT * ML=Testing performed at Main Lab DEPARTMENT OF PATHOLOGY, [address] [place] [address] Prateek Brown M.D. Director [facility] # [id number] 6 Because ethnic data is not always [...] ok Procedures Date Code Description Status 06/12/2018 69002 EKG Tracing & Interpretation Completed 06/05/2018 33787 Icd Eval Sing,Dual,Multi Lead Remote Recpt Transm Tech Rev Completed Tech S 06/05/2018 20798 Pacemaker Check Remote Up To 90Days Single,Dual,Multiple Completed Lead 06/04/2018 35709 Insrt/Replce/Repostn PMKR/Aicd - Atrial/Ventricular Completed 12/28/2017 66030 Pace Maker Eval W/Iterative Adjustment Single Lead Completed 12/28/2017 36431 Pace Maker Eval W/Iterative Adjustment Single Lead Completed 08/04/2017 43745 EKG Tracing & Interpretation Completed 07/12/2017 19019 Interrogation Device Eval In Person W/DR Completed Analysis,Single,Dual,Mul 07/12/2017 36845 Interrogation Device Eval In Person W/DR Completed Analysis,Single,Dual,Mul 06/12/2017 33153 Pacemaker Check Remote Up To 90Days Single,Dual,Multiple Completed Lead 06/12/2017 49062 Icd Eval Sing,Dual,Multi Lead Remote Recpt Transm Tech Rev Completed Tech S 05/19/2017 43733 Stress Test Completed 05/19/2017 45268 Myocardial Perfusion Imaging Tomographic (Spect) Multiple Completed Studies 01/12/2017 39381 ECHO Transthoracic, Real-Time 2D With Doppler And Color Completed Flow 01/12/2017 77901 ECHO Transthoracic, Real-Time 2D With Doppler And Color Completed Flow 01/03/2017 49571 EKG Tracing & Interpretation Completed 12/28/2016 76165 Pace Maker Eval W/Iterative Adjustment Single Lead Completed 12/28/2016 94333 Pace Maker Eval W/Iterative Adjustment Single Lead Completed 12/05/2016 26272 Removal Pacemaker W/Replacement Of Pacemaker Pulse Completed Generator 11/23/2016 40437 Pace Maker Eval W/Iterative Adjustment Single Lead Completed 09/23/2016 06337 Interrogation Device Eval In Person W/DR Completed Analysis,Single,Dual,Mul 07/08/2016 11631 Pace Maker Eval W/Iterative Adjustment Single Lead Completed 04/07/2016 65246 Icd Eval Sing,Dual,Multi Lead Remote Recpt Transm Tech Rev Completed Tech S 04/07/2016 90972 Pacemaker Check Remote Up To 90Days Single,Dual,Multiple Completed Lead 02/05/2016 03697 EKG Tracing & Interpretation Completed 01/07/2016 88009 Pace Maker Eval W/Iterative Adjustment Single Lead Completed 07/21/2015 88724 Icd eval w/iterative adjment single lead Icd Completed 02/12/2015 66091 Pacemaker Check Remote Up To 90Days Single,Dual,Multiple Completed Lead 02/12/2015 31915 Icd Eval Sing,Dual,Multi Lead Remote Recpt Transm Tech Rev Completed Tech S 01/22/2015 67387 EKG Tracing & Interpretation Completed 01/21/2015 98772 Interrogation Device Eval In Person W/ Completed Analysis,Single,Dual,Mul 08/18/2014 02047 Icd Eval Sing,Dual,Multi Lead Remote Recpt Transm Tech Rev Completed Tech S 08/18/2014 49232 Pacemaker Check Remote Up To 90Days Single,Dual,Multiple Completed Lead 07/29/2014 35590 Interrogation Device Eval In Person W/DR Completed Analysis,Single,Dual,Mul 01/23/2014 84035 Pace Maker Eval W/Iterative Adjustment Single Lead Completed 01/21/2014 53806 ECHO Transthoracic, Real-Time 2D With Doppler And Color Completed Flow 01/17/2014 64467 EKG Tracing & Interpretation Completed Encounters Type Date Location Provider Dx Diagnosis Office Visit 06/07/2018 [facility] Berta Abreu, Z95.0 Presence of 12:45p Of Stephy Hein cardiac pacemaker I48.2 Chronic atrial fibrillation Office Visit 06/05/2018 2:49p [facility] Earl Larkin R47.89 Other speech Of Stephy Whitt M.D. disturbances H53.9 Unspecified visual disturbance Office Visit 05/25/2018 9:00a [facility] Earl Larkin I48.2 Chronic atrial Of Stephy Whitt M.D. fibrillation Z95.0 Presence of cardiac pacemaker T82.110A Breakdown (mechanical) of cardiac electrode, init encntr Office Visit 08/04/2017 11:45a [facility] Earl Larkin Z95.0 Presence of Of Stephy Whitt M.D. 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 cardiac pacemaker I48.91 Unspecified atrial fibrillation Office Visit 01/22/2015 11:15a [facility] Earl Larkin I48.2 Chronic atrial Of Stephy Whitt M.D. fibrillation Office Visit 01/17/2014 4:00p [facility] Earl Larkin 427.31 Atrial Of Stephy Whitt M.D. Fibrillation 424.0 Mitral Valve Disorder Plan of Treatment Future Appointment(s):06/15/2018 12:15 pm - Earl [facility] M[facility]D. at [facility]06/12/2018 - Earl Whitt M.D.Z95.0 Presence of cardiac pacemakerFollow up:Monday06/15/[facility] officeRecommendations: IF next INR is > 1.4 then stop Lovenox [id number] Chronic atrial fibrillation
--- OUTSIDE RECORDS SUMMARY | 2018-07-01 13:09 | XMS REPORT | Continuity of Care Document ---
:1930 External Reference #:[id number] Author Name [facility] Care Team Providers Name Role Phone Bigg Gallardo MD Primary Care Physician Unavailable Payers Date Identification Numbers Payment Provider Subscriber Policy Number: [id number] Medicare Lionel Keith PayID: [id number] [address] [place] [address] Policy Number: [id number] [employer] Lionel Keith Group Number: [id number] [address] PayID: [id number] [place] [address] Advance Directives Description No Information Available Problems Date Description Provider Status Onset: 02/05/2016 Atrial fibrillation Earl Whitt M.D. Active Onset: 02/05/2016 Cardiac pacemaker in situ Earl Whitt M.D. 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 Tobacco Use Start: Unknown Never Smoked Cigarettes Smoking Status Reviewed: 05/25/18 Never Smoked Cigarettes ETOH Use Currently consumes 5x week alcohol Tobacco Use Start: Unknown Patient has never smoked Recreational Drug Use Denies Drug Use Exercise Type/Frequency Walks 4 times a week 3 days week, strength training and PT Allergies, Adverse Reactions, Alerts Date Description Reaction Status Severity Comments 01/17/2014 Yogi Inhibitors respiratory reaction Active per [facility] [place] notes 01/17/2014 Cat respiratory reaction Active per [facility] [place] notes 01/17/2014 Sotalol Active per [facility] [place] notes Medications Medication Date Status Form Strength Qnty SIG Indications Ordering Provider Lovenox 05/25/ Active Solution 80mg/0.8ML 14unit 80 mg T82.110A Earl 2018 s injection D. Brand, twice a day M.D. from 11/29/18 thru 12/01/18 Hydroxyurea / Active Capsules 500mg 2 cap , Unknown 0000 and 1 cap mon, mon,mon, sat, sun as directed ( Dr. Be) Losartan 00/00/ Active Tablets 50mg 90tabs 1 by mouth Unknown Potassium 0000 every day Nadolol 00/ Active Tablets 40mg 30tabs 1 by mouth Unknown 0000 every day Terazosin HCL 00/ Active Capsules 2mg 30caps 1 by mouth Unknown 0000 every night Warfarin 00/ Active Tablets 5mg 90tabs 5 mg Unknown Sodium 0000 through mon day . tuesdays 2 1/2mg ( adjusted [facility]) Vitamin D3 00/ Active 1000mg 1 cap po Unknown 0000 daily Vitamin B12 0000/ Active 1 po daily Unknown 0000 Keflex 12/05/ Hx Capsules 500mg 9caps 1 [...] Available Vital Signs Date Vital Result Comment 05/25/2018 8:35am Height 68 inches 5'8" Weight [...] Result H/L Range Note Pre Cath 05/29/2018 [facility] Partial 35.3 seconds N 26.0- 36.[address] [place] [address] PTT [phone] CBC Auto Diff 05/29/2018 [facility] White Blood 5.9 10^3/uL N 3.5-10.[address] [place] [address] [phone] Red Blood Count 2.57 10^6/uL Low 4.00-5.40 [...] Red Blood Cells % 0.1 Inr/Protime 05/29/2018 [facility] Inr 1.49 High 0.77-1.02 [address] [place] [address] [phone] Basic Metabolic 05/29/2018 [facility] Sodium 138 mmol/L N 135- 145 Panel [address] [place] [address] [phone] Potassium 4.7 mmol/L N 3.5-5.0 Chloride 103 mmol/L N 101-111 Co2 Carbon Dioxide 29 mmol/L N 22-32 Anion Gap 6 mmol/L N 2-11 Glucose 85 mg/dL N 70-100 Blood Urea Nitrogen 28 mg/dL High 6-24 Creatinine 0.99 mg/dL N 0.67-1.17 BUN/Creatinine Ratio 28.3 High 8-20 Calcium 9.3 mg/dL N 8.6-10.3 Egfr Non- 71.7 >60 Egfr 86.7 >60 2 Cell Morphology 05/29/2018 [facility] Macrocytosis 3+ [address] [place] [address] [phone] Laboratory test 04/02/2018 [facility] LDH 185 U/L N 140-271 finding [address] [place] [address] [phone] Direct Jatinder NEGATIVE CBC Auto 04/02/2018 [facility] Red Blood 2.40 10^6/uL Low 4.00 -5.[address] [place] [address] [phone] White Blood Count 6.7 10^3/uL N 3.5-10.8 [...] Blood Cells % 0.1 Retic Count 04/02/2018 [facility] Retic Count 0.8 % N 0.5-1.[address] [place] [address] [phone] Mean Retic Volume 166.1 Immature Retic Fraction 0.54 RBC Retic Count 2.40 10^6/uL Low 4.6-6.2 Corrected Retic Count 0.5 % N 0.5-1.5 Maturation Factor Retic 1.5 Retic Index 0.30 Hematocrit for Retic CNT 30 % Low 42-52 Laboratory 04/02/2018 [facility] Haptoglobin <14 mg/dL Abnormal 30 - 4 test finding [address] [place] [address] [phone] Laboratory 12/05/2016 [facility] Surgical SEE RESULT 5 test finding [address] [place] [address] [phone] Basic 12/02/2016 [facility] Sodium 135 mmol/L N 133-[address] 5 [place] [address] [phone] Potassium 4.6 mmol/L N 3.5-5.0 Chloride 103 mmol/L N 101-111 Co2 Carbon Dioxide 28 mmol/L N 22-32 Anion Gap 4 mmol/L N 2-11 Glucose 93 mg/dL N 70-100 Blood Urea Nitrogen 30 mg/dL High 6-24 Creatinine 0.88 mg/dL N 0.67-1.17 BUN/Creatinine Ratio 34.1 High 8-20 Calcium 9.0 mg/dL N 8.6-10.3 Egfr Non- 82.5 N >60 Egfr 106.1 N >60 6 Inr/Protime 12/02/2016 [facility] Inr 2.76 High 0.89-1.[address] [place] [address] [phone] CBC Auto Diff 12/02/2016 [facility] White Blood 5.6 N 3.5- 10.[address] Count 10^3/[place] [address] [phone] Red Blood Count 2.53 10^6/uL Low 4.0-5.4 [...] Cells % 0.1 N Pre Cath 12/02/2016 [facility] Partial 47.5 seconds High 26.0- 36.3 [address] [place] [address] PTT [phone] Consistent with Previous Results Reported on [...] Reported on 01/26/18 4 Test Performed by: [place] [id number] SEE RESULT BELOW Name: LIONEL BARRIENTOS : [address]: Earl Whitt MD Acct: [id number] Unit: [id number] AGE: 86 Location: [facility] Re12/05/16 SEX: M Status: REG REF SPEC: [id number] HANNA: 12/05/16-[address]: Earl Whitt MD REQ: [id number] RECD: 12/05/16-1236 STATUS: SOUT _ ORDERED: LEVEL [address] [facility] generator, removal: Foreign body ([facility] generator) (Gross diagnosis). 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 The following inscription is identified: [facility] ACCENT SR RF [id number] SSIR S/N [id number]. Per established hospital medical staff protocol, no tissue is submitted. Gross only. Signed (signature on file) Prateek Brown MD 0948 END OF REPORT * ML=Testing performed at Main Lab DEPARTMENT OF PATHOLOGY, [address] [place] [address] Prateek Brown M.D. Director [facility] # [id number] Because ethnic data is not always [...] non-fasting ok Procedures Date Code Description Status 06/04/2018 02495 Insrt/Replce/Repostn PMKR/Aicd - Atrial/Ventricular Completed 12/28/2017 79788 Pace Maker Eval W/Iterative Adjustment Single Lead Completed 12/28/2017 88497 Pace Maker Eval W/Iterative Adjustment Single Lead Completed 08/04/2017 27917 EKG Tracing & Interpretation Completed 07/12/2017 17819 Interrogation Device Eval In Person W/ Completed Analysis,Single,Dual,Mul 07/12/2017 60772 Interrogation Device Eval In Person W/ Completed Analysis,Single,Dual,Mul 06/12/2017 69147 Icd Eval Sing,Dual,Multi Lead Remote Recpt Transm Tech Rev Completed Tech S 06/12/2017 48444 Pacemaker Check Remote Up To 90Days Single,Dual,Multiple Completed Lead 05/19/2017 84264 Myocardial Perfusion Imaging Tomographic (Spect) Multiple Completed Studies 05/19/2017 71241 Stress Test Completed 01/12/2017 77900 ECHO Transthoracic, Real-Time 2D With Doppler And Color Completed Flow 01/12/2017 60438 ECHO Transthoracic, Real-Time 2D With Doppler And Color Completed Flow 01/03/2017 98559 EKG Tracing & Interpretation Completed 12/28/2016 30862 Pace Maker Eval W/Iterative Adjustment Single Lead Completed 12/28/2016 62616 Pace Maker Eval W/Iterative Adjustment Single Lead Completed 12/05/2016 40141 Removal Pacemaker W/Replacement Of Pacemaker Pulse Completed Generator 11/23/2016 29862 Pace Maker Eval W/Iterative Adjustment Single Lead Completed 09/23/2016 60223 Interrogation Device Eval In Person W/ Completed Analysis,Single,Dual,Mul 07/08/2016 44946 Pace Maker Eval W/Iterative Adjustment Single Lead Completed 04/07/2016 19377 Icd Eval Sing,Dual,Multi Lead Remote Recpt Transm Tech Rev Completed Tech S 04/07/2016 46828 Pacemaker Check Remote Up To 90Days Single,Dual,Multiple Completed Lead 02/05/2016 14466 EKG Tracing & Interpretation Completed 01/07/2016 39332 Pace Maker Eval W/Iterative Adjustment Single Lead Completed 07/21/2015 82619 Icd eval w/iterative adjment single lead Icd Completed 02/12/2015 90131 Pacemaker Check Remote Up To 90Days Single,Dual,Multiple Completed Lead 02/12/2015 71005 Icd Eval Sing,Dual,Multi Lead Remote Recpt Transm Tech Rev Completed Tech S 01/22/2015 69085 EKG Tracing & Interpretation Completed 01/21/2015 16040 Interrogation Device Eval In Person W/DR Completed Analysis,Single,Dual,Mul 08/18/2014 66205 Icd Eval Sing,Dual,Multi Lead Remote Recpt Transm Tech Rev Completed Tech S 08/18/2014 93139 Pacemaker Check Remote Up To 90Days Single,Dual,Multiple Completed Lead 07/29/2014 31613 Interrogation Device Eval In Person W/DR Completed Analysis,Single,Dual,Mul 01/23/2014 47159 Pace Maker Eval W/Iterative Adjustment Single Lead Completed 01/21/2014 70089 ECHO Transthoracic, Real-Time 2D With Doppler And Color Completed Flow 01/17/2014 36161 EKG Tracing & Interpretation Completed Encounters Type Date Location Provider Dx Diagnosis Office Visit 05/25/2018 [facility] Earl Larkin I48.2 Chronic atrial 9:00a Of [place] Whitt M.D. fibrillation Z95.0 Presence of cardiac pacemaker T82.110A Breakdown (mechanical) of cardiac electrode, init encntr Office Visit 08/04/2017 11:45a [facility] Earl Larkin Z95.0 Presence of Of Stephy Whitt M.D. cardiac pacemaker I48.2 Chronic atrial fibrillation I35.0 Nonrheumatic aortic (valve) stenosis Office Visit 04/25/2017 1:45p [facility] Earl Larkin I48.2 Chronic atrial Of Ste[facility] Melvina Whitt fibrillation Z95.0 Presence of cardiac pacemaker I47.2 Ventricular tachycardia I35.0 Nonrheumatic aortic (valve) stenosis Office Visit 12/02/2016 11:00a [facility] MAKSIM Huang Z95.0 Presence of Of [facility] cardiac pacemaker R42 Dizziness and giddiness I34.0 Nonrheumatic mitral (valve) insufficiency Office Visit 02/05/2016 11:00a [facility] Earl Larkin Z95.0 Presence of Of Stephy Whitt M.D. cardiac pacemaker I48.91 Unspecified atrial fibrillation Office Visit 01/22/2015 11:15a [facility] Earl Larkin I48.2 Chronic atrial Of Stephy Whitt M.D. fibrillation Office Visit 01/17/2014 4:00p [facility] Earl Larkin 427.31 Atrial Of Stephy Whitt M.D. Fibrillation 424.0 Mitral Valve Disorder Plan of Treatment Future Appointment(s):06/08/2018 10:30 am - Earl Whitt M.D. at [facility]06/12/2018 1:15 pm - Earl Whitt M.D. at [facility] AT [facility]05/25/2018 - Earl Whitt M.D.I48.2 Chronic atrial puboigjrughlX37.0 Presence of cardiac xlgglqwpiW82.110A Breakdown (mechanical) of cardiac electrode, initial encountNew Medication:Lovenox 80 mg/0.8ML - 80 mg injection twice a day from 11/29/18 thru 12/01/18New Orders:Implant Pacemaker, Ordered: 05/25/18Follow up:1 week after procedureRecommendations:Stay off coumadin after teeth extraction Start Lovenox 80 mg injection twice a day on Monday morning06/01/18 Stop injections after dose on monday evening 06/03/18
--- NOTE | 2018-07-01 13:41 | ED ---
Psychiatric Complaint - HPI Summary HPI Summary: Pt. is an 88 y.o male who presents to the ED with his for depression and SI. Pt. states he has a hx of depression roughly 20-30 years ago. He states he has been hospitalized in the past. He states his PCP started him on Paxil 3 days ago. Pt. states Paxil helped him in the past. Pt. states over the last several days he has been having very strong suicidal ideations with a plan to suffocate self or to have his pace make removed and take beta blockers. Pt. otherwise denies fever, recent illness, CP, SOB, abd. pain, dysuria. Sxs are severe in severity. No current modifying factors. Pt. denies suicidal attempts other than placing a blanket over his face when he went to sleep last night. - History Of Current Complaint Chief Complaint: EDMentalHealth Time Seen by Provider: 07/01/18 13:15 Hx Obtained From: Patient - Allergies/Home Medications Allergies/Adverse Reactions: Allergies Allergy/AdvReac Type Severity Reaction Status Date / Time cat dander Allergy Unknown Verified 06/15/18 13:57 Reaction Details sotalol Allergy See Comment Verified 06/15/18 13:57 RADHA Inhibitors AdvReac Coughing Verified 06/15/18 13:57 CATS Allergy Unknown Uncoded 05/30/12 15:34 Reaction Details PMH/Surg Hx/FS Hx/Imm Hx Previously Healthy: Yes Endocrine/Hematology History: Denies: Hx Diabetes, Hx Anemia Cardiovascular History: Reports: Hx Hypertension, 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 Denies: Hx Angina, Hx Coronary Artery Disease, Hx Hypercholesterolemia, Hx Myocardial Infarction, Hx Valvular Heart Disease Respiratory History: Denies: Hx Asthma, Hx Chronic Obstructive Pulmonary Disease (COPD) GI History: Denies: Hx Jaundice History: Denies: Hx Renal Disease Sensory History: Denies: Hx Contacts or Glasses, Hx Hearing Aid Opthamlomology History: Denies: Hx Contacts or Glasses - Surgical History Surgery Procedure, Year, and Place: pacemaker Infectious Disease History: No Infectious Disease History: Denies: Traveled Outside the [place] in Last 30 Days - Family History Known Family History: Positive: None - Social History Occupation: Retired Lives: With Family Alcohol Use: Rare Alcohol Amount: 2/week Substance Use Type: Reports: None Hx Tobacco Use: No Smoking Status (MU): Never Smoked Tobacco Review of Systems Constitutional: Negative Negative: Fever, Chills Cardiovascular: Negative Negative: Palpitations, Chest Pain Respiratory: Negative Negative: Shortness Of Breath, Cough Positive: Other - mild constipation. Negative: Abdominal Pain, Vomiting, Nausea Genitourinary: Negative Musculoskeletal: Negative Neurological: Negative Positive: Depressed All Other Systems Reviewed And Are Negative: Yes Physical Exam Triage Information Reviewed: Yes Vital Signs On Initial Exam: Initial Vitals Temp Pulse Resp BP Pulse Ox 98.1 F 70 16 141/78 100 07/01/18 12:54 07/01/18 12:54 07/01/18 12:54 07/01/18 12:54 07/01/18 12:54 Vital Signs Reviewed: Yes Appearance: Positive: Well-Appearing - Pt. sitting up in bed in NAD. Fully oriented and answers all questions appropriately. present. Skin: Positive: Warm, Dry Head/Face: Positive: Normal Head/Face Inspection Eyes: Positive: Normal, EOMI, JOSUE Neck: Positive: Supple Respiratory/Lung Sounds: Positive: Clear to Auscultation, Breath Sounds Present Cardiovascular: Positive: Normal, RRR, Murmur Musculoskeletal: Positive: Normal, Strength/ROM Intact Neurological: Positive: Normal, Alert, Oriented to Person Place, Time, CN Intact II-III Psychiatric: Positive: Affect/Mood Appropriate - Devon Coma Scale Best Eye Response: 4 - Spontaneous Best Motor Response: 6 - Obeys Commands Best Verbal Response: 5 - Oriented Coma Scale Total: 15 Diagnostics - Vital Signs Vital Signs Temp Pulse Resp BP Pulse Ox 07/01/18 12:54 98.1 F 70 16 141/78 100 - Laboratory Result Diagrams: 07/01/18 14:06 07/01/18 14:06 Lab Statement: Any lab studies that have been ordered have been reviewed, and results considered in the medical decision making process. Course/Dx - Course Course Of Treatment: 1338: Pt. presenting with suicidal intent. He is very well appearing and fully oriented. Basic MHE work up ordered. Pt. medically cleared at this time. ECG done at 1252 shows a ventricular paced rhythm of 70bpm. CBC shows chronic anemia. CBC shows hyponatremia of 124 which appears new for pt. Will given a liter of NS. Pt. will be signed out to Herrera Calle PA-C for disposition. - Differential Dx/Clinical Impression Differential Diagnosis/HQI/PQRI: Positive: Acute Psychosis, Anxiety, Depression , Suicidal Ideation Provider Diagnosis: Depression Discharge - Sign-Out/Discharge Documenting (check all that apply): Sign-Out Patient Signing out patient TO: Herrera Calle Patient Received Moderate/Deep Sedation with Procedure: No - Discharge Plan Condition: Good Referrals: Bigg Gallardo MD [Primary Care Provider] - - Billing Disposition and Condition Condition: GOOD
[2018-07-01 14:13] LABS: ABS Basophils 0.1 10^3/ul (0-0.2); ABS Eosinophils 0.1 10^3/ul (0-0.6); ABS Lymphocytes 0.7 10^3/ul (1.0-4.8); ABS Monocytes 0.5 10^3/ul (0-0.8); ABS Neutrophils 5.2 10^3/ul (1.5-7.7); ABS Nucleated RBC 0 10^3/ul; Eosinophil % 1.2 %; Hematocrit 28 % (42-52); Hemoglobin 9.7 g/dl (14.0-18.0); Lymphocyte % 10.6 %; Mean Corpuscular HGB Conc 35 g/dl (31-36); Mean Corpuscular Hemoglobin 41 pg (27-31); Mean Corpuscular Volume 116 fL (80-94); Mean Platelet Volume 7.9 fL (7.4-10.4); Nucleated Red Blood Cells % 0; Platelet Count 363 10^3/ul (150-450); Red Blood Count 2.39 10^6/ul (4.00-5.40); Red Cell Distribution Width 13 % (10.5-15); White Blood Count 6.6 10^3/ul (3.5-10.8)
[2018-07-01 14:28] LABS: ALT 15 U/L (7-52); AST 19 U/L (13-39); Albumin 3.6 g/dL (3.2-5.2); Albumin/Globulin Ratio 1.4 (1-3); Alkaline Phosphatase 64 U/L (34-104); Anion Gap 3 mmol/L (2-11); BUN/Creatinine Ratio 20.2 (8-20); Blood Urea Nitrogen 17 mg/dL (6-24); CO2 Carbon Dioxide 29 mmol/L (22-32); Calcium 8.7 mg/dL (8.6-10.3); Chloride 92 mmol/L (101-111); EGFR African American 104.8 (>60); EGFR Non-African American 86.6 (>60); Globulin 2.5 g/dL (2-4); Glucose 95 mg/dL (70-100); Sodium 124 mmol/L (135-145); Total Protein 6.1 g/dL (6.4-8.9)
[2018-07-01 14:36] LABS: Acetaminophen < 15 mcg/mL; Alcohol < 10 mg/dL (<10); Salicylate < 2.50 mg/dL (<30)
[2018-07-01 14:51] LABS: TSH (Thyroid Stimulating Horm) 0.79 mcIU/mL (0.34-5.60)
[2018-07-01 15:09] LABS: Urine Appearance Clear; Urine Bacteria Absent (Absent); Urine Bilirubin Negative (Negative); Urine Blood 1+ (Negative); Urine Color Straw; Urine Glucose Negative (Negative); Urine Ketones Negative (Negative); Urine Nitrite Negative (Negative); Urine Protein Negative (Negative); Urine Red Blood Cell Trace(0-2/hpf) (Absent); Urine Specific Gravity 1.006 (1.010-1.030); Urine Squamous Epithelial Cell Present (Absent); Urine Urobilinogen Negative (Negative); Urine White Blood Cell Trace(0-5/hpf) (Absent)
[2018-07-01 15:18] LABS: Barbiturates Urine Screen None Detected (None Detect); Benzodiazepine Urine Screen None Detected (None Detect); Urine Cannabinoids Screen None Detected (None Detect)
--- NOTE | 2018-07-01 15:21 | PN ---
Progress Note - Progress Note Date of Service: 07/01/18 - evaluation for suicidal ideation with Howard SCHAEFFER Note: I acted as supervising physician for MAKSIM Melchor in the care and treatment of Isabella Benjamin. Pt is an 88 yo M who appears younger than stated age, ambulatory to the ED by private vehicle with his , Charleen Campbell, with suicidal ideation. Pt has had recent medical issues including pacemaker placement in his left anterior chest in May 2018, which have limited his ability to exercise 6 days a week as he is used to, which has contributed to worsening depression in him, and recent thoughts of suicide with gesture last pm of pulling the blanket up over his head , as an attempt at suffocation. Pt's is with him, and expresses concern for his safety, therefore encourage pt to come to the ED for evaluation and treatment. Pt has hx of depression 30 years ago, and was treated with Paxil, and responded well to this, but states it took "a year and a half" to improve. Pt has Dr. Bigg Gallardo as his PCP, and pt was prescribed Paxil by Dr. Gallardo two days ago, but both pt and realize that this will take some time to be effective. Pt also lives near [facility], and has spoken to a counselor there, and has a follow up appointment scheduled. Pt had labs which showed chronic anemia, stable, and normal platelet count, despit thrombycythemia, followed by Dr. Be per [facility] "select visits". Pt also noted with serum Na 124, which is new for him, per [facility] records. Pt denies physical complaints, other than general new physical disabilities for him such as left shoulder discomfort at site of pacemaker placement. EKG shows 100% paced rhythm. Pt declined IV fluids or further evaluation and treatment of hyponatremia. Pt medically cleared. All data concerning pt is reviewed, and discussed with Howard Trujillo. Nurses' noted, meds, allergies, labs and EKG (100%). Pt remained calm and cooperative in the ED, very flat affect, but good eye contact. spoke to me in private and stated that she was concerned about bringing him home, worried that he will harm himself. I explained mental health evaluation process to pt and his . MHE by ALCIDES Irwin, included extensive discussion with and pt about suicide. Alida spoke with Dr. Lopez, who felt that pt had good supports in the community with , mental health counselor appointment upcoming, and as his PCP, and recent re-start of his Paxil, which was effective 30 years ago, and pt is tolerating administration of Paxil again without adverse side effects. ALCIDES Irwin, relayed to me, that Dr. Lopez felt pt was a safe discharge. I discussed with Alida again, what pt's , Charleen Campbell, had shared with me about concern for bringing him home. Alida again spoke with pt's , who states she has changed her mind, that she now feels safe in bringing pt home after their extensive discussion about suicide in the [place]. Alida reported this to me. I concur with discharge and to follow up with [facility], Dr. Gallardo, and continuing the Paxil. Of note with pt's Na 124, IV fluids were ordered for pt. Pt declined the IV fluids, and stated he would F/U with Dr. Gallardo. Agree with assessments by MAKSIM Melchor and ALCIDES Irwin. Concur with disposition per Dr. Lopez Per Dr. Lopez, per ALCIDES Irwin, E Condition: stable Diagnosis: Depression Disposition: home with his , Charleen Campbell
[2018-07-01] MEDS ORDERED: NS 0.9% 1000 ML** 1,000 ML IV ONE (16:37)
[2018-07-01 18:05] VITALS: BP 158/70
--- NOTE | 2018-07-01 18:58 | PN ---
Progress Note - Progress Note Date of Service: 07/01/18 Note: Patient signed out to me by Stephania SCHAEFFER pending mental health evaluation and disposition. Mental health diagnosis depressive disorder. Mental Health disposition = discharge. Patient and understand and approve plan. Patient refused fluids indicated for hyponatremia of 124.
== END 2018-07-01 18:05 | disposition home or self-care (01) ==
LOC: ED 12:45
DX: R45.851 Suicidal ideations (principal); F32.9 Major depressive disorder, single episode, unspecified; I10 Essential (primary) hypertension; Z95.810 Presence of automatic (implantable) cardiac defibrillator; Z88.8 Allergy status to other drugs, medicaments and biological substances; Z91.048 Other nonmedicinal substance allergy status
CPT/HCPCS: 36415; 80053; 80307; 80320; 80329; 81003; 81015; 84443; 85025; 87086; 93005; 99284; G0480

== ENCOUNTER 2018-07-04 16:18 | Inpatient (IN) | payer MEDICARE, OTHER ==
--- NOTE | 2018-07-04 16:34 | ED ---
Psychiatric Complaint - HPI Summary HPI Summary: This patient is an 88 year old M brought in by ambulance to ED accompanied by his with a chief complaint of SI and depression since 07/01/18. The patient was seen on 07/01/18 for the same sx and a MHE was done. Per his , the patient had depression about 25 years ago and until recently he had been fine. He recently had surgery and his says that it set him back to depression. He was given new sleeping meds after the surgery and his thinks that its making it worse. BUS ANALYST of EMS, the says that she found him in the bathroom with an exercise band around his neck and around the door. The explains to EMS that she is not sure she can handle him for 24 hour care and knowing his past, he needs to be admitted. The patient rates the pain 0/10 in severity. Symptoms aggravated by nothing. Symptoms alleviated by nothing. - History Of Current Complaint Chief Complaint: EDMentalHealth Time Seen by Provider: 07/04/18 16:25 Hx Obtained From: Patient Onset/Duration: Sudden Onset, Lasting Days - since 07/01/18, Still Present Timing: Constant Severity Currently: None Character: Depressed Aggravating Factor(s): Nothing Alleviating Factor(s): Nothing Related History: Positive For: Prior Psychiatric Issues Has Suicidal: Reports: Thoughts, With A Plan, Demonstrates Gesture - Allergies/Home Medications Allergies/Adverse Reactions: Allergies Allergy/AdvReac Type Severity Reaction Status Date / Time cat dander Allergy Unknown Verified 06/15/18 13:57 Reaction Details sotalol Allergy See Comment Verified 06/15/18 13:57 RADHA Inhibitors AdvReac Coughing Verified 06/15/18 13:57 CATS Allergy Unknown Uncoded 05/30/12 15:34 Reaction Details Home Medications: Home Medications HydroxyUREA CAP* [Hydrea CAP*] 500 mg PO BID 07/04/18 [History Confirmed ] PARoxetine HCL TAB* [Paxil TAB*] 10 mg PO DAILY 07/04/18 [History Confirmed ] QUEtiapine TAB* [Seroquel 25 MG TAB*] 25 mg PO BEDTIME 07/04/18 [History Confirmed 07/04/18] Warfarin TAB(*) [Coumadin TAB(*)] 5 mg PO DAILY 07/04/18 [History Confirmed ] PMH/Surg Hx/FS Hx/Imm Hx Endocrine/Hematology History: Denies: Hx Diabetes, Hx Anemia Cardiovascular History: Reports: Hx Hypertension, 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 Denies: Hx Angina, Hx Coronary Artery Disease, Hx Hypercholesterolemia, Hx Myocardial Infarction, Hx Valvular Heart Disease Respiratory History: Denies: Hx Asthma, Hx Chronic Obstructive Pulmonary Disease (COPD) GI History: Denies: Hx Jaundice History: Denies: Hx Renal Disease Sensory History: Denies: Hx Contacts or Glasses, Hx Hearing Aid Opthamlomology History: Denies: Hx Contacts or Glasses Psychiatric History: Denies: Hx Eating Disorder, Hx of Violent Episodes Against Others - Surgical History Surgery Procedure, Year, and Place: pacemaker Infectious Disease History: No Infectious Disease History: Denies: Traveled Outside the [place] in Last 30 Days - Family History Known Family History: Negative: Cardiac Disease - Social History Alcohol Use: Rare Alcohol Amount: 2/week Substance Use Type: Reports: None Hx Tobacco Use: No Smoking Status (MU): Never Smoked Tobacco Review of Systems Negative: Fever Positive: Depressed, Other - SI All Other Systems Reviewed And Are Negative: Yes Physical Exam - Summary Physical Exam Summary: Constitutional: Well-developed, Well-nourished, Alert. (-) Distressed Skin: Warm, Dry, Mild chronic erythema above his ankle HENT: Normocephalic; Atraumatic Eyes: Conjunctiva normal Neck: Musculoskeletal ROM normal neck. (-) JVD, (-) Stridor, (-) Tracheal deviation Cardio: Rhythm regular, rate normal, Murmur; Intact distal pulses; The pedal pulses are 2+ and symmetric. Radial pulses are 2+ and symmetric. (-) Murmur Pulmonary/Chest wall: Effort normal. (-) Respiratory distress, (-) Wheezes, (-) Rales Abd: Soft, (-) tenderness, (-) Distension, (-) Guarding, (-) Rebound. Wearing a brace for support around his abdomen. Musculoskeletal: 2+ bilateral pedal edema Lymph: (-) Cervical adenopathy Neuro: Alert, Oriented x3 Psych: Mood and affect Normal Triage Information Reviewed: Yes Vital Signs On Initial Exam: Initial Vitals Temp Pulse Resp BP Pulse Ox 97.6 F 70 16 157/70 100 07/04/18 16:21 07/04/18 16:21 03/13/19 16:21 07/04/18 16:21 07/04/18 16:21 Vital Signs Reviewed: Yes Diagnostics - Vital Signs Vital Signs Temp Pulse Resp BP Pulse Ox 07/04/18 16:21 97.6 F 70 16 157/70 100 - Laboratory Lab Statement: Any lab studies that have been ordered have been reviewed, and results considered in the medical decision making process. Re-Evaluation - Re-Evaluation First Eval Re-Evaluation Time: 16:13 Comment: Spoke with the patient and and performed the physical exam. Course/Dx - Course Assessment/Plan: This patient is an 88 year old M brought in by ambulance to ED accompanied by his with a chief complaint of SI and depression since . On exam, he has 2+ bilateral pedal edema, mild chronic erythema above his ankle, a murmur is heard, and he is wearing a brace for support around his abdomen. The patient was medically cleared for MHE at 1640. MHE done at [address] Lees. This patient will be admitted voluntarily with dx of depression. - Differential Dx/Clinical Impression Differential Diagnosis/HQI/PQRI: Positive: Depression Provider Diagnosis: Depression Discharge - Sign-Out/Discharge Documenting (check all that apply): Patient Departure - admit Patient Received Moderate/Deep Sedation with Procedure: No - Discharge Plan Condition: Stable Disposition: [facility]YCHIATRIC FACILITY[place] [place] - Billing Disposition and Condition Condition: STABLE Disposition: Psychiatric Facility [facility] [place] - Attestation Statements Document Initiated by Scribe: Yes Documenting Scribe: Jose Gutiérrez Provider For Whom Scribe is Documenting (Include Credential): Stefany Muñoz Scribe Attestation: I, Jose Gutiérrez, scribed for Stefany Urrutia on 07/04/18 at 2128. Scribe Documentation Reviewed: Yes Provider Attestation: The documentation as recorded by the jose [email or web address] accurately reflects the service I personally performed and the decisions made by Stefany schaeffer Status of Scribe Document: Viewed
--- OUTSIDE RECORDS SUMMARY | 2018-07-04 17:53 | XMS REPORT | Continuity of Care Document ---
:1930 External Reference #:[id number] Author Name Covert, Ashlyn Care Team Providers Name Role Phone Bigg Gallardo MD Primary Care Physician Unavailable Payers Date Identification Numbers Payment Provider Subscriber Policy Number: [id number] Medicare Lionel Keith PayID: [id number] [address] [place] [address] Policy Number: [id number] [employer] Lionel Keith Group Number: [id number] [address] PayID: [id number] [place] [address] Advance Directives Description No Information Available Problems Date Description Provider Status Onset: 02/05/2016 Atrial fibrillation Earl Whitt M.D. Active Onset: 02/05/2016 Cardiac pacemaker in situ Earl Whitt M.D. 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 Be) Losartan 00/00/ Active Tablets 50mg 90tabs 1 by mouth Unknown Potassium 0000 every day Nadolol 0000/ Active Tablets 40mg 30tabs 1 by mouth Unknown 0000 every day Terazosin HCL 0000/ Active Capsules 2mg 30caps 1 by mouth Unknown 0000 every night Warfarin 00/00/ Active Tablets 5mg 90tabs 5 mg daily Unknown Sodium 0000 Vitamin D3 00/ Active 1000mg 1 cap po Unknown 0000 daily Vitamin B12 0000/ Active 1 po Unknown 0000 occasional taken Paxil / Active Tablets 10mg 1 by mouth Unknown 0000 every day Keflex 06/15/ Hx Capsules 250mg 9caps 3 times a day Earl 2018 - for 3 days DRui Whitt 06/21/ M.D. 2018 Lovenox 05/25/ Hx Solution 80mg/0.8ML 14unit 80 mg T82.110A Earl 2018 - s injection DRui Whitt 06/21/ twice a day M.D. 2018 from 11/29/18 thru 12/01/18 ( On Hold since 06/06/18) Keflex 12/05/ Hx Capsules 500mg 9caps 1 by mouth Earl 2016 - three times a D. Jose Eduardo 12/11/ day for 3 M.D. 2016 days Digoxin / Hx 0.125mg 1 tablet po Unknown 0000 - daily 2016 Gemfibrozil / Hx Tablets 600mg 60tabs 1 tablet po Unknown 0000 - twice daily 2018 Viagra / Hx Tablets 100mg 12tabs by mouth 0.5 Unknown 0000 - or 1 tab 1h 02/03/ before 2016 intercourse Vitamin D 00/ Hx Tablets 1000Unit 1 po 5 times Unknown 0000 - a week 2018 Medications Administered in Office Medication Date Status Form Strength Qnty SIG Indications Ordering Provider Inj, Administered Injection Earl Larkin Regadenoson, 018 Melvina Whitt 0.1 MG Technetium TC Administered Injection Earl Larkin 99M 018 Melvina Whitt Tetrofosmin, Per Unit Dose Up To 40 Millicuries Immunizations Description No Information Available Vital Signs Date Vital Result Comment 07/03/2018 1:48pm Height 68 inches 5'8" Weight 157.12 lb with shoes Heart Rate 60 /min BP Systolic Sitting 130 mmHg Rue, regular cuff BP Diastolic Sitting 75 mmHg Rue, regular cuff Respiratory Rate 16 /min BMI (Body Mass Index) 23.9 kg/m2 06/22/2018 12:46pm Height 68 inches 5'8" Weight [...] Result H/L Range Note Pre Cath 05/29/2018 [facility] Partial 35.3 seconds N 26.0- 36.[address] [place] [address] PTT [phone] CBC Auto Diff 05/29/2018 [facility] White Blood 5.9 10^3/uL N 3.5-10.[address] [place] [address] [phone] Red Blood Count 2.57 10^6/uL Low 4.00-5.40 [...] Red Blood Cells % 0.1 Inr/Protime 05/29/2018 [facility] Inr 1.49 High 0.77-1.02 [address] [place] [address] [phone] Basic Metabolic 05/29/2018 [facility] Sodium 138 mmol/L N 135- 145 Panel [address] [place] [address] [phone] Potassium 4.7 mmol/L N 3.5-5.0 Chloride 103 mmol/L N 101-111 Co2 Carbon Dioxide 29 mmol/L N 22-32 Anion Gap 6 mmol/L N 2-11 Glucose 85 mg/dL N 70-100 Blood Urea Nitrogen 28 mg/dL High 6-24 Creatinine 0.99 mg/dL N 0.67-1.17 BUN/Creatinine Ratio 28.3 High 8-20 Calcium 9.3 mg/dL N 8.6-10.3 Egfr Non- 71.7 >60 Egfr 86.7 >60 2 Cell Morphology 05/29/2018 [facility] Macrocytosis 3+ [address] [place] [address] [phone] Laboratory test 04/02/2018 [facility] LDH 185 U/L N 140-[address] [place] [address] [phone] Direct Jatinder NEGATIVE CBC Auto 04/02/2018 [facility] Red Blood 2.40 10^6/uL Low 4.00 -5.[address] [place] [address] [phone] White Blood Count 6.7 10^3/uL N 3.5-10.8 [...] Blood Cells % 0.1 Laboratory test 04/02/2018 [facility] Haptoglobin <14 mg/dL Abnormal 30 - [address] [place], [place] [id number] [phone] Retic Count 04/02/2018 [facility] Retic Count 0.8 % N 0.5-1.[address] [place] [address] [phone] Mean Retic Volume 166.1 Immature Retic Fraction 0.54 RBC Retic Count 2.40 10^6/uL Low 4.6-6.2 Corrected Retic Count 0.5 % N 0.5-1.5 Maturation Factor Retic 1.5 Retic Index 0.30 Hematocrit for Retic CNT 30 % Low 42-52 Laboratory test 12/05/2016 [facility] Surgical SEE RESULT [address] [place] [address] [phone] Basic Metabolic 12/02/2016 [facility] Sodium 135 mmol/L N 133- [address] [place] [address] [phone] Potassium 4.6 mmol/L N 3.5-5.0 Chloride 103 mmol/L N 101-111 Co2 Carbon Dioxide 28 mmol/L N 22-32 Anion Gap 4 mmol/L N 2-11 Glucose 93 mg/dL N 70-100 Blood Urea Nitrogen 30 mg/dL High 6-24 Creatinine 0.88 mg/dL N 0.67-1.17 BUN/Creatinine Ratio 34.1 High 8-20 Calcium 9.0 mg/dL N 8.6-10.3 Egfr Non- 82.5 N >60 Egfr 106.1 N >60 6 Inr/Protime 12/02/2016 [facility] Inr 2.76 High 0.89-1.[address] [place] [address] [phone] CBC Auto Diff 12/02/2016 [facility] White Blood 5.6 N 3.5- 10.[address] Count 10^3/[place] [address] [phone] Red Blood Count 2.53 10^6/uL Low 4.0-5.4 [...] Cells % 0.1 N Pre Cath 12/02/2016 [facility] Partial 47.5 seconds High 26.0- 36.[address] [place] [address] PTT [phone] Consistent with Previous Results Reported on [...] Reported on 01/26/18 4 Test Performed by: [address] [address] 5 SEE RESULT BELOW Name: LIONEL BARRIENTOS : [address]: Earl Whitt MD Acct: [id number] Unit: [id number] AGE: 86 Location: [facility] Re12/05/16 SEX: M Status: REG REF SPEC: [id number] HANNA: 12/05/16-[address] [facility] [address]: Ealr Whitt MD REQ: [id number] RECD: 12/05/166 STATUS: SOUT _ ORDERED: LEVEL [address] [employer] generator, removal: Foreign body ([employer] Sukumar generator) (Gross diagnosis). CLINICAL HISTORY No history given GROSS DESCRIPTION The specimen is received fresh with no source identified and a requisition labeled, Pacemaker Generator, and consists of a 5.1 x 4.8 by up to 0.8 cm banks metallic medical payment poster. The following inscription is identified: [facility] [place] [employer] [facility] ACCENT SR RF [id number] SSIR S/N [id number]. Per established hospital medical staff protocol, no tissue is submitted. Gross only. Signed (signature on file) Prateek Brown MD 0948 END OF REPORT * ML=Testing performed at Main Lab DEPARTMENT OF PATHOLOGY, [address] [place] [address] Prateek Brown M.D. Director [facility] # [id number] 6 Because ethnic data is not always [...] non-fasting ok Procedures Date Code Description Status 06/28/2018 39119 Icd Eval Sing,Dual,Multi Lead Remote Recpt Transm Tech Rev Completed Games2Win 06/28/2018 55289 Pacemaker Check Remote Up To 90Days Single,Dual,Multiple Completed Lead 06/12/2018 26365 EKG Tracing & Interpretation Completed 06/05/2018 42088 Icd Eval Sing,Dual,Multi Lead Remote Recpt Transm Tech Rev Completed [employer] 06/05/2018 39752 Pacemaker Check Remote Up To 90Days Single,Dual,Multiple Completed Lead 06/04/2018 42845 Insrt/Replce/Repostn PMKR/Aicd - Atrial/Ventricular Completed 12/28/2017 54255 Pace Maker Eval W/Iterative Adjustment Single Lead Completed 12/28/2017 05641 Pace Maker Eval W/Iterative Adjustment Single Lead Completed 08/04/2017 46178 EKG Tracing & Interpretation Completed 07/12/2017 03987 Interrogation Device Eval In Person W/DR Completed Analysis,Single,Dual,Mul 07/12/2017 97673 Interrogation Device Eval In Person W/DR Completed Analysis,Single,Dual,Mul 06/12/2017 82254 Icd Eval Sing,Dual,Multi Lead Remote Recpt Transm Tech Rev Completed [employer]Win 06/12/2017 11774 Pacemaker Check Remote Up To 90Days Single,Dual,Multiple Completed Lead 05/19/2017 66082 Stress Test Completed 05/19/2017 61671 Myocardial Perfusion Imaging Tomographic (Spect) Multiple Completed Studies 01/12/2017 57504 ECHO Transthoracic, Real-Time 2D With Doppler And Color Completed Flow 01/12/2017 49976 ECHO Transthoracic, Real-Time 2D With Doppler And Color Completed Flow 01/03/2017 37275 EKG Tracing & Interpretation Completed 12/28/2016 83052 Pace Maker Eval W/Iterative Adjustment Single Lead Completed 12/28/2016 55247 Pace Maker Eval W/Iterative Adjustment Single Lead Completed 12/05/2016 45407 Removal Pacemaker W/Replacement Of Pacemaker Pulse Completed Generator 11/23/2016 35472 Pace Maker Eval W/Iterative Adjustment Single Lead Completed 09/23/2016 60601 Interrogation Device Eval In Person W/DR Completed Analysis,Single,Dual,Mul 07/08/2016 28183 Pace Maker Eval W/Iterative Adjustment Single Lead Completed 04/07/2016 24356 Icd Eval Sing,Dual,Multi Lead Remote Recpt Transm Tech Rev Completed Tech S 04/07/2016 12812 Pacemaker Check Remote Up To 90Days Single,Dual,Multiple Completed Lead 02/05/2016 21936 EKG Tracing & Interpretation Completed 01/07/2016 36559 Pace Maker Eval W/Iterative Adjustment Single Lead Completed 07/21/2015 20739 Icd eval w/iterative adjment single lead Icd Completed 02/12/2015 91981 Pacemaker Check Remote Up To 90Days Single,Dual,Multiple Completed Lead 02/12/2015 69542 Icd Eval Sing,Dual,Multi Lead Remote Recpt Transm Tech Rev Completed Tech S 01/22/2015 78569 EKG Tracing & Interpretation Completed 01/21/2015 53291 Interrogation Device Eval In Person W/DR Completed Analysis,Single,Dual,Mul 08/18/2014 65427 Icd Eval Sing,Dual,Multi Lead Remote Recpt Transm Tech Rev Completed Tech S 08/18/2014 00600 Pacemaker Check Remote Up To 90Days Single,Dual,Multiple Completed Lead 07/29/2014 07935 Interrogation Device Eval In Person W/DR Completed Analysis,Single,Dual,Mul 01/23/2014 67959 Pace Maker Eval W/Iterative Adjustment Single Lead Completed 01/21/2014 30094 ECHO Transthoracic, Real-Time 2D With Doppler And Color Completed Flow 01/17/2014 99710 EKG Tracing & Interpretation Completed Encounters Type Date Location Provider Dx Diagnosis Office Visit 06/07/2018 [facility] Berta Abreu, Z95.0 Presence of 12:45p Of Stephy Hein cardiac pacemaker I48.2 Chronic atrial fibrillation Office Visit 06/05/2018 2:49p [facility] Earl Larkin R47.89 Other speech Of Stephy Whitt M.D. disturbances H53.9 Unspecified visual disturbance Office Visit 05/25/2018 9:00a [facility] Earl Larkin I48.2 Chronic atrial Of Stephy Whitt M.D. fibrillation Z95.0 Presence of cardiac pacemaker T82.110A Breakdown (mechanical) of cardiac electrode, init encntr Office Visit 08/04/2017 11:45a [facility] Earl Larkin Z95.0 Presence of Of Stephy Whitt M.D. cardiac pacemaker I48.2 Chronic atrial fibrillation I35.0 Nonrheumatic aortic (valve) stenosis Office Visit 04/25/2017 1:45p [facility] Earl Larkin I48.2 Chronic atrial Of [facility] Melvina Whitt fibrillation Z95.0 Presence of cardiac pacemaker I47.2 Ventricular tachycardia I35.0 Nonrheumatic aortic (valve) stenosis Office Visit 12/02/2016 11:00a [facility] MAKSIM Huang Z95.0 Presence of Of [employer] cardiac pacemaker R42 Dizziness and giddiness I34.0 Nonrheumatic mitral (valve) insufficiency Office Visit 02/05/2016 11:00a [facility] Earl Larkin Z95.0 Presence of Of Stephy Whitt M.D. cardiac pacemaker I48.91 Unspecified atrial fibrillation Office Visit 01/22/2015 11:15a [facility] Earl Larkin I48.2 Chronic atrial Of Stephy Whitt M.D. fibrillation Office Visit 01/17/2014 4:00p [facility] Earl Larkin 427.31 Atrial Of Stephy Whitt M.D. Fibrillation 424.0 Mitral Valve Disorder Plan of Treatment Future Appointment(s):10/03/2018 2:30 pm - Earl Whitt M.D. at [facility]07/10/2018 2:30 pm - Ica Pacer Schedule at [facility]07/03/2018 - Earl Whitt M.D.Z95.0 Presence of cardiac pacemakerNew Orders:Interrogation Pacemaker, Ordered: 07/03/18Follow up:3 nfafouQ90.5 Sick sinus xlpcmctoT38.2 Chronic atrial vrutbgyohcsxP65.110D Breakdown (mechanical) of cardiac electrode, subsequent enco
[2018-07-04] MEDS ORDERED: Acetaminophen TAB* 325 MG PO PRN (20:50)
[2018-07-04] MEDS ORDERED: Al Hydrox/Mg Hydrox/Simet LIQ* 30 ML UDC PO PRN (20:50)
[2018-07-04] MEDS: Terazosin CAP* 1 MG PO SCH (20:57)
[2018-07-04] MEDS: Losartan TAB* 25 MG PO SCH (21:16)
[2018-07-04] MEDS: Warfarin TAB(*) 5 MG PO SCH (21:49)
[2018-07-04] MEDS: HydroxyUREA CAP* 500 MG CAP PO SCH (22:20)
[2018-07-05] MEDS ORDERED: hydrOXYzine HCL TAB* 50 MG ONE (01:00)
[2018-07-05] MEDS: hydrOXYzine HCL TAB* 50 MG PO PRN ×2 (04:55→21:56)
[2018-07-05] MEDS ORDERED: QUEtiapine TAB* 25 MG PO SCH (09:00)
[2018-07-05] MEDS ORDERED: PARoxetine HCL TAB* 10 MG PO SCH (09:00)
[2018-07-05 10:40] LABS: ABS Basophils 0 10^3/ul (0-0.2); ABS Eosinophils 0.1 10^3/ul (0-0.6); ABS Lymphocytes 0.5 10^3/ul (1.0-4.8); ABS Monocytes 0.3 10^3/ul (0-0.8); ABS Neutrophils 4.9 10^3/ul (1.5-7.7); ABS Nucleated RBC 0 10^3/ul; Eosinophil % 1.2 %; Hematocrit 32 % (36-46); Hemoglobin 11.2 g/dL (14.0-18.0); Lymphocyte % 9.4 %; Mean Corpuscular HGB Conc 35 g/dL (31-36); Mean Corpuscular Hemoglobin 40 pg (27-31); Mean Corpuscular Volume 113 fL (80-94); Mean Platelet Volume 7.9 fL (7.4-10.4); Nucleated Red Blood Cells % 0; Platelet Count 436 10^3/uL (150-450); Red Blood Count 2.79 10^6 /uL (4.18-5.48); Red Cell Distribution Width 14 % (10.5-15); White Blood Count 5.8 10^3/uL (3.5-10.8)
[2018-07-05 10:57] LABS: Albumin/Globulin Ratio 1.5 (1-3); Calcium 8.9 mg/dL (8.6-10.3); EGFR African American 115.9 (>60); EGFR Non-African American 95.8 (>60); Globulin 2.7 g/dL (2-4); Potassium 4.2 mmol/L (3.5-5.0); Total Bilirubin 1.8 mg/dL (0.2-1.0); Total Protein 6.7 g/dL (6.4-8.9)
[2018-07-05] MEDS: Losartan TAB* 25 MG PO SCH (11:50)
[2018-07-05] MEDS: Vitamin THERAPEUTIC TAB PO SCH (11:51)
[2018-07-05] MEDS: Nadolol TAB* 40 MG PO SCH (11:52)
[2018-07-05] MEDS: HydroxyUREA CAP* 500 MG CAP PO SCH ×2 (11:52→21:54)
--- NOTE | 2018-07-05 12:06 | HP ---
H&P (Free Text) History and Physical: Justification for admission: Immediate Safety. CC " I tried ending my life" The patient was brought to [facility] by his who witnessed him trying to hang himself with a rope. He reported that since getting his pacemaker a month ago he felt depressed and that he has not been able to enjoy the things he once did. He said " I am not a coward I am not going to kill myself." He denied access to firearms or stockpiles of medications. He denied sleep or appetite issues. The patient denied homicidal ideation intent or plan. The patient denied auditory and/ or visual hallucinations. MDD He reported feeling depressed or having diminished interest in hobbies or interests which were present in the past , for most of the time, lasting more than 2 weeks. He reported feelings of hopelessness or worthless. Reported feeling tired throughout the day. Reported loss of energy or lack of motivation to complete tasks. He reported feeling no purpose in life and felt that he would be better off . Bipolar Denied symptoms of edilberto such as having many ideas at once. Denied increased talkativeness where no one can interrupt. Denied feeling irritable most of the time while having an persistent abundance of energy most of the day without the use of energy drinks, stimulants, or recreational drug use. Denied an increase in intensity in goal directed activities. Denied having the decreased need to sleep for days , having prolonged elevated heighted mood , or feeling on top of the world. Denied impulsive risky sexual encounters. Denied spending money recklessly , going on spending sprees wiping out savings. Denied impulsively traveling out of town or country, having super coulter, and unrealistic wealth or fame. Anxiety Denied having symptoms of anxiety such as having times where heart feels that it is beating out of chest , sweaty palms, or shallow breathing. Denied having uncomfortable or intrusive thoughts. Denied feeling restless, high strung, or worrying too much most of the time. Psychosis Does not endorse hearing things that other people do not hear or seeing things other people do not see. Denied feeling that TV is making references. Denied feeling that people are spying , following , or reading their thoughts. Phobias: Patient denied having excessive fear of a particular thing or situation. Eating disorders: Patient denied having excessive eating habits or feelings of guilt after eating. Denied repeated episodes of self induced vomiting after eating. PTSD Denied flashbacks, nightmares and avoidance of a prior traumatic event. PAST PSYCHIATRIC HISTORY: Prior Diagnosis : Major depressive disorder History of past Psychiatric Hospitalizations: 1 prior psychiatric admission in 1993 in [facility] History of past suicide/homicide attempts : 1 past suicide attempt in 1993 with attempt to hang himself. Denied past homicidal incidents. Outpatient follow-up: No current psychiatric follow up care. Medications: Amitriptyline in 1992 and was discontinued shortly after. Other Past trials of medications include paxil started in 1993 with good clinical response and discontinued a year later. Guardianship: His is his health care proxy FAMILY HISTORY: - Suicide: Denied family history of suicide. - Mental illness: Denied a history of mental health in immediate family members. - Substance abuse: Denied substance abuse among family members. SUBSTANCE ABUSE HISTORY: Denied using alcohol, tobacco, heroin and cocaine other illicit substances. Denied abusing pills not prescribed . Denied past Substance abuse treatment. - EtOH: Denied using recently or in the past. - Tobacco: Denied using recently or in the past. - Cannabis: Denied using recently or in the past. - Heroin: Denied using recently or in the past. - Cocaine: Denied using recently or in the past. 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 Has one son. He is and grew up in [place] and lived in [place] for some time. He currently lives in [place] with his . PAST MEDICAL HISTORY: A-Fib , current Hyponatremia, s/p pacemaker, essential thrombocythemia, , HTN, BPH - Allergies: RADHA inhibitors, Sotalol and allergic to cats Physical Exam: Please see ED note Mental Status Exam on Admission APPEARANCE : 88 year old male who appears stated age. Patient is not malodourous, and appears to have fair hygiene and grooming. BEHAVIOR: Cooperative , calm EYE CONTACT: Fair PSYCHOMOTOR ACTIVITY: No psychomotor agitation or retardation. MOVEMENTS: No abnormal movements observed. SPEECH : Normal rate, rhythm, volume and tone. MOOD : " Okay" AFFECT : blunted THOUGHT PROCESS: formulated and organized in a logical, linear goal directed manner. THOUGHT CONTENT: no delusions, preoccupations, obsessions, phobias or preoccupations. PERCEPTION: No current auditory or visual hallucinations. Doesnt appear to be responding to internal cues. No evidence of depersonalization , de-realization, or illusions SUICIDALITY Recent Suicide attempt HOMICIDALITY Denied homicidal ideation, intent or plan. Insight/judgment: Fair insight and judgment ORIENTATION: Oriented to self, location, and time. Diagnosis on Admission: Major Depressive Disorder rule out as a cause to another medical condition Assessment: 88 year old male with history of depression came to the hospital and was admitted to the B[facility] at [facility] after a suicide attempt. Plan # Labs ordered: Stat CBC, CMP ordered showing severe Hyponatremia 118 EKG ordered showing A-fib # Collateral information obtained from his and son who plan to be involved in his care # Patient will be followed on the medical floor. # Patient not medically clear for BSU admission #Medicine consult team was contacted and plan to transfer patient to the medical floor. Once patient reaches the medical floor please place 1:1 sitter until further notice #Do not restart SSRI at this time. Sodium 118 mmol/L (135-145) L* 07/05/18 10:18 Potassium 4.2 mmol/L (3.5-5.0) 07/05/18 10:18 BUN 20 mg/dL (6-24) 07/05/18 10:18 Creatinine 0.77 mg/dL (0.67-1.17) 07/05/18 10:18 Hemoglobin A1c 4.7 % (4.0-5.6) 07/05/18 07:50 Calcium 8.9 mg/dL (8.6-10.3) 07/05/18 10:18 AST 21 U/L (13-39) 07/05/18 10:18 ALT 15 U/L (7-52) 07/05/18 10:18 Triglycerides 74 mg/dL 07/05/18 07:50 Cholesterol 160 mg/dL 07/05/18 07:50 LDL Cholesterol 82 mg/dL 07/05/18 07:50 Vital Signs Temp Pulse Resp BP Pulse Ox 97.5 F 70 14 158/69 95 07/05/18 08:29 07/05/18 10:18 07/05/18 10:18 07/05/18 10:18 07/05/18 11:20 Acetaminophen (Tylenol Tab*) 650 mg PO Q4H PRN PRN Reason: PAIN or TEMP > 101 F Al Hydrox/Mg Hydrox/Simethicone (Maalox Plus*) 30 ml PO Q4H PRN PRN Reason: INDIGESTION Amlodipine Besylate (Norvasc Tab*) 5 mg PO DAILY [facility] Hydroxyurea (Hydrea Cap*) 500 mg PO BID [facility] Last Admin: 07/05/18 11:52 Dose: Not Given Hydroxyzine HCl (Atarax Tab*) 50 mg PO Q4H PRN PRN Reason: ANXIETY Last Admin: 07/05/18 04:55 Dose: 50 mg Multivitamins (Theragran Tab*) 1 tab PO DAILY [facility] Last Admin: 07/05/18 11:51 Dose: Not Given Nadolol (Corgard Tab*) 40 mg PO DAILY [facility] Last Admin: 07/05/18 11:52 Dose: Not Given Terazosin HCl (Hytrin Cap*) 2 mg PO BEDTIME [facility] Last Admin: 07/04/18 20:57 Dose: 2 mg Warfarin Sodium (Coumadin Tab(*)) 5 mg PO DAILY@1700 [facility] Last Admin: 07/04/18 21:49 Dose: 5 mg
--- NOTE | 2018-07-05 13:45 | PN ---
Subjective Date of Service: 07/05/18 Interval History: Patient seen and examined with family present. Patient denies SOB, no dizziness no fevers or chills, no fatigue. No seizure activity noted per staff. Lengthy discussion with family about transfer to tele and medical POC. Objective Active Medications: Acetaminophen (Tylenol Tab*) 650 mg PO Q4H PRN PRN Reason: PAIN or TEMP > 101 F Al Hydrox/Mg Hydrox/Simethicone (Maalox Plus*) 30 ml PO Q4H PRN PRN Reason: INDIGESTION Amlodipine Besylate (Norvasc Tab*) 5 mg PO DAILY [facility] Hydroxyurea (Hydrea Cap*) 500 mg PO BID [facility] Last Admin: 07/05/18 11:52 Dose: Not Given Hydroxyzine HCl (Atarax Tab*) 50 mg PO Q4H PRN PRN Reason: ANXIETY Last Admin: 07/05/18 04:55 Dose: 50 mg Multivitamins (Theragran Tab*) 1 tab PO DAILY [facility] Last Admin: 07/05/18 11:51 Dose: Not Given Nadolol (Corgard Tab*) 40 mg PO DAILY [facility] Last Admin: 07/05/18 11:52 Dose: Not Given Quetiapine Fumarate (Seroquel Tab*) 25 mg PO DAILY [facility] Last Admin: 07/05/18 11:52 Dose: Not Given Terazosin HCl (Hytrin Cap*) 2 mg PO BEDTIME [facility] Last Admin: 07/04/18 20:57 Dose: 2 mg Warfarin Sodium (Coumadin Tab(*)) 5 mg PO DAILY@1700 [facility] Last Admin: 07/04/18 21:49 Dose: 5 mg Vital Signs - 8 hr 07/05/18 07/05/18 07/05/18 08:29 10:18 11:20 Temperature 97.5 F Pulse Rate 70 70 Respiratory 16 14 Rate Blood Pressure 149/58 158/69 (mmHg) O2 Sat by Pulse 100 95 Oximetry Oxygen Devices in Use Now: None Appearance: alert, ambulatory, NAD Eyes: No Scleral Icterus, PERRLA Ears/Nose/Mouth/Throat: Mucous Membranes Moist Neck: NL Appearance and Movements; NL JVP Respiratory: Symmetrical Chest Expansion and Respiratory Effort, Clear to Auscultation Cardiovascular: RRR, - - grade II/ murmur Abdominal: NL Sounds; No Tenderness; No Distention Extremities: No Clubbing, Cyanosis, - - bipedal LE edema, +1 Skin: No Rash or Ulcers Neurological: Alert and Oriented x 3, NL Sensation, NL Gait Nutrition: Taking PO's Result Diagrams: 07/05/18 10:18 07/05/18 10:18 Diagnostic Imaging: CT Head (last admission) Patient Name: Isabella BARRIENTOS Medical Record#: [id number] Ordering Physician: Fang Johnson MD Acct.#: [id number] : 1930 Age: 88 Sex: M Location: [address] [place] [address]/TELEMETRY Exam Date: 06/05/18 131 ADM Status: ADM Dirk Order Information: CT BRAIN WO Accession Number: [id number] CPT: 87781 INDICATION: Slurred speech and facial droop COMPARISON: None. TECHNIQUE: Contiguous axial sections of the brain were obtained from the skull base to the vertex without contrast. FINDINGS: The ventricles, cisterns and sulci exhibit a mild degree of symmetrical involutional changes. There is a very mild degree of hypoattenuation of the periventricular and subcortical white matter most consistent with mild microvascular disease. The banks-white matter differentiation is adequately maintained and there is no sulcal effacement. No significant focal abnormality or mass effect is present. There is calcified atherosclerosis of the bilateral vertebral arteries and petrous carotid arteries. There is no evidence for intracranial hemorrhage. No significant focal osseous abnormality is present. The visualized portion of the paranasal sinuses appear clear. The mastoid air cells are well aerated bilaterally. IMPRESSION: Mild, age-appropriate chronic findings as described above without CT apparent acute intracranial abnormality. <Electronically signed by Shane Landon MD in [place]> 06/05/181407 Dictated By: Shane Landon MD Dictated Date/Time: 06/05/181407 Transcribed Date/Time: 06/05/181406 Copy to: Assess/Plan/Problems-Billing Assessment: This is a very pleasant 88 year old male with history of afib, SSS with pacemaker, essential thrombocythemia, depression, HTN, BPH that presented to ED with suicidal ideation and admitted to BSU, today found to be profoundly hyponatremic. - Patient Problems (1) Hyponatremia Code(s): E87.1 - HYPO-OSMOLALITY AND HYPONATREMIA SNOMED Code(s): 58452045 Comment: - Per history, patient recently placed on paxil on 06/27 and seroquel on 07/02 then was noted to have Na of 124 on 07/01 and now 118 today; was also on cozaar. Both now discontinued - Check serum sodium, urine lytes - Patient does not appear dry, will fluid restrict x24 hours - Recheck sodium this evening, consider sodium tabs if sodium remains low - Highly recoomend no behavioral meds that are associated with electrolyte disturbances, will discuss with Dr. Tatum (2) Major depression Code(s): F32.9 - MAJOR DEPRESSIVE DISORDER, SINGLE EPISODE, UNSPECIFIED SNOMED Code(s): 685583053 Comment: - With suicidal ideation - 1:1 while on tele unit until cleared by psychiatry - Dr. Tatum following (3) Essential thrombocythemia Code(s): D47.3 - ESSENTIAL (HEMORRHAGIC) THROMBOCYTHEMIA SNOMED Code(s): 540689285 Comment: - Follows with Dr. Be - Platelets 474, mild elevation in MCV, continue hydroxyurea - Would expect hyperkalemia with ET, not likely a contributing factor in his hyponatremia now, favoring medication-related etiology (4) Atrial fibrillation Code(s): I48.91 - UNSPECIFIED ATRIAL FIBRILLATION SNOMED Code(s): 03781268 Comment: - Continue nadolol and coumadin, check INR in AM (5) BPH Comment: - continue terazosin at bedtime (6) PACEMAKER Comment: - With recent wire change and evacuation of hematoma with Dr. Whitt - Continue telemetry - EKG with no acute changes (afib, v-paced) (7) DVT prophylaxis Code(s): CMW4076 - SNOMED Code(s): 166357064 Comment: - on coumadin (8) Full code status Code(s): Z78.9 - OTHER SPECIFIED HEALTH STATUS SNOMED Code(s): 187754368 Status and Disposition: Inpatient, dispo likely back to BSU when medically cleared.
[2018-07-05] MEDS ORDERED: Polyethylene Glycol 3350* 17 GM PACKET PO PRN (17:04)
[2018-07-05] MEDS ORDERED: Docusate CAP* 100 MG PO PRN (17:04)
[2018-07-05] MEDS: Warfarin TAB(*) 5 MG PO SCH (17:15)
[2018-07-05 17:48] LABS: Urine Creatinine Concentration 38.83 mg/dL
[2018-07-05] MEDS ORDERED: Melatonin 3 MG TAB PO PRN (19:03)
[2018-07-05] MEDS: Sodium Chloride TAB* 1 GM PO SCH (21:54)
[2018-07-05] MEDS: Terazosin CAP* 1 MG PO SCH (21:54)
[2018-07-05 21:58] LABS: Urine Potassium Concentration 24.8 mmol/L
[2018-07-06] MEDS: hydrOXYzine HCL TAB* 50 MG PO PRN ×3 (02:46→20:29)
[2018-07-06 06:16] LABS: INR 2.33 (0.77-1.02)
[2018-07-06 06:28] LABS: BUN/Creatinine Ratio 24.3 (8-20); Calcium 8.5 mg/dL (8.6-10.3); EGFR African American 129.4 (>60); EGFR Non-African American 106.9 (>60); Potassium 4.2 mmol/L (3.5-5.0)
--- NOTE | 2018-07-06 08:15 | CONSULT ---
Consult Consult: CHADD " I feel bad for my family" 88 year old male with recent suicide attempt by hanging himself. The patient was brought to [facility] emergency department by his who witnessed him trying to hang himself with a rope. He reported having low energy and not being able to walk as much and do thing he once enjoyed doing. He denied access to firearms or stockpiles of medications. He denied sleep or appetite issues. And notes that sometime he wakes up after sleeping for a few hours. The patient denied current suicidal and or homicidal ideation intent or plan. The patient denied auditory and/ or visual hallucinations. MDD He reported feeling depressed or having diminished interest in hobbies or interests which were present in the past , for most of the time, lasting more than 2 weeks. He reported feelings of hopelessness or worthless. Reported feeling tired throughout the day. Reported loss of energy or lack of motivation to complete tasks. He reported feeling no purpose in life and felt that he would be better off . Bipolar Denied symptoms of edilberto such as having many ideas at once. Denied increased talkativeness where no one can interrupt. Denied feeling irritable most of the time while having an persistent abundance of energy most of the day without the use of energy drinks, stimulants, or recreational drug use. Denied an increase in intensity in goal directed activities. Denied having the decreased need to sleep for days , having prolonged elevated heighted mood , or feeling on top of the world. Denied impulsive risky sexual encounters. Denied spending money recklessly , going on spending sprees wiping out savings. Denied impulsively traveling out of town or country, having super coulter, and unrealistic wealth or fame. Anxiety Denied having symptoms of anxiety such as having times where heart feels that it is beating out of chest , sweaty palms, or shallow breathing. Denied having uncomfortable or intrusive thoughts. Denied feeling restless, high strung, or worrying too much most of the time. Psychosis Does not endorse hearing things that other people do not hear or seeing things other people do not see. Denied feeling that TV is making references. Denied feeling that people are spying , following , or reading their thoughts. Phobias: Patient denied having excessive fear of a particular thing or situation. Eating disorders: Patient denied having excessive eating habits or feelings of guilt after eating. Denied repeated episodes of self induced vomiting after eating. PTSD Denied flashbacks, nightmares and avoidance of a prior traumatic event. PAST PSYCHIATRIC HISTORY: Prior Diagnosis : Major depressive disorder History of past Psychiatric Hospitalizations: 1 prior psychiatric admission in 1993 in [facility] History of past suicide/homicide attempts : 1 past suicide attempt in 1993 with attempt to hang himself. Denied past homicidal incidents. Outpatient follow-up: No current psychiatric follow up care. Medications: Amitriptyline in 1992 and was discontinued shortly after. Other Past trials of medications include paxil started in 1993 with good clinical response and discontinued a year later. He was restarted on paxil and seroquel a few weeks ago by his PCP Guardianship: His is his health care proxy FAMILY HISTORY: - Suicide: Denied family history of suicide. - Mental illness: Denied a history of mental health in immediate family members. - Substance abuse: Denied substance abuse among family members. SUBSTANCE ABUSE HISTORY: Denied using alcohol, tobacco, heroin and cocaine other illicit substances. Denied abusing pills not prescribed . Denied past Substance abuse treatment. - EtOH: Denied using recently or in the past. - Tobacco: Denied using recently or in the past. - Cannabis: Denied using recently or in the past. - Heroin: Denied using recently or in the past. - Cocaine: Denied using recently or in the past. 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 Has 2 step sons and 2 daughters. He is and grew up in [facility] [facility] and lived in [place] for some time. He currently lives in [place] with his . PAST MEDICAL HISTORY: A-Fib , current Hyponatremia, s/p pacemaker, essential thrombocythemia, , HTN, BPH. Possible TIA a week ago. - Allergies: RADHA inhibitors, Sotalol and allergic to cats Physical Exam: Please see ED note Mental Status Exam on Admission APPEARANCE : 88 year old male who appears stated age. Patient is not malodourous, and appears to have fair hygiene and grooming. BEHAVIOR: Cooperative , calm EYE CONTACT: Fair PSYCHOMOTOR ACTIVITY: No psychomotor agitation or retardation. MOVEMENTS: No abnormal movements observed. SPEECH : Normal rate, rhythm, volume and tone. MOOD : " good " AFFECT : blunted THOUGHT PROCESS: formulated and organized in a logical, linear goal directed manner. THOUGHT CONTENT: no delusions, preoccupations, obsessions, phobias or preoccupations. PERCEPTION: No current auditory or visual hallucinations. Doesnt appear to be responding to internal cues. No evidence of depersonalization , de-realization, or illusions SUICIDALITY Recent Suicide attempt HOMICIDALITY Denied homicidal ideation, intent or plan. Insight/judgment: Fair insight and judgment ORIENTATION: Oriented to self, location, and time. Diagnosis on Admission: Major Depressive Disorder rule out as a cause to another medical condition Assessment: 88 year old male with a history of depression and recent suicide attempt came to the hospital with a sodium of 118 and currently being treated on the medical floor Plan #Medical management per medical team. # Psychiatry will continue to follow patient #Can discontinue 1:1 sitter #Start wellbutrin 75mg daily #Family has concern about a possible TIA occuring a few days ago and are requesting Dr. Thomas Neurology to be consulted. #Once medically stable please contact Psychiatry for disposition. Sodium 121 mmol/L (135-145) L 07/06/18 05:35 Potassium 4.2 mmol/L (3.5-5.0) 07/06/18 05:35 BUN 17 mg/dL (6-24) 07/06/18 05:35 Creatinine 0.70 mg/dL (0.67-1.17) 07/06/18 05:35 Hemoglobin A1c 4.7 % (4.0-5.6) 07/05/18 07:50 Calcium 8.5 mg/dL (8.6-10.3) L 07/06/18 05:35 AST 21 U/L (13-39) 07/05/18 10:18 ALT 15 U/L (7-52) 07/05/18 10:18 Triglycerides 74 mg/dL 07/05/18 07:50 Cholesterol 160 mg/dL 07/05/18 07:50 LDL Cholesterol 82 mg/dL 07/05/18 07:50 Acetaminophen (Tylenol Tab*) 650 mg PO Q4H PRN PRN Reason: PAIN or TEMP > 101 F Al Hydrox/Mg Hydrox/Simethicone (Maalox Plus*) 30 ml PO Q4H PRN PRN Reason: INDIGESTION Amlodipine Besylate (Norvasc Tab*) 5 mg PO DAILY [facility] Last Admin: 07/06/18 08:49 Dose: 5 mg Bupropion HCl (Wellbutrin Tab*) 75 mg PO DAILY [facility] Last Admin: 07/06/18 08:49 Dose: 75 mg Docusate Sodium (Colace Cap*) 100 mg PO BID PRN PRN Reason: CONSTIPATION Hydroxyurea (Hydrea Cap*) 500 mg PO BID [facility] Last Admin: 07/06/18 08:49 Dose: 500 mg Hydroxyzine HCl (Atarax Tab*) 50 mg PO Q4H PRN PRN Reason: ANXIETY Last Admin: 07/06/18 02:46 Dose: 50 mg Melatonin (Melatonin) 3 mg PO BEDTIME PRN PRN Reason: SLEEP Last Admin: 07/05/18 21:56 Dose: 3 mg Multivitamins (Theragran Tab*) 1 tab PO DAILY [facility] Last Admin: 07/06/18 08:49 Dose: 1 tab Nadolol (Corgard Tab*) 40 mg PO DAILY [facility] Last Admin: 07/06/18 08:49 Dose: 40 mg Polyethylene Glycol/Electrolytes (Miralax*) 17 gm PO DAILY PRN PRN Reason: CONSTIPATION Sodium Chloride (Sodium Chloride Tab*) 1 gm PO BID [facility] Last Admin: 07/06/18 08:49 Dose: 1 gm Terazosin HCl (Hytrin Cap*) 2 mg PO BEDTIME [facility] Last Admin: 07/05/18 21:54 Dose: 2 mg Warfarin Sodium (Coumadin Tab(*)) 5 mg PO DAILY@1700 [facility] Last Admin: 07/05/18 17:15 Dose: 5 mg
[2018-07-06] MEDS: Sodium Chloride TAB* 1 GM PO SCH ×2 (08:49→20:29)
[2018-07-06] MEDS: HydroxyUREA CAP* 500 MG CAP PO SCH ×2 (08:49→20:30)
[2018-07-06] MEDS: amLODIPine TAB* 5 MG PO SCH (08:49)
[2018-07-06] MEDS: Vitamin THERAPEUTIC TAB PO SCH (08:49)
[2018-07-06] MEDS: Nadolol TAB* 40 MG PO SCH (08:49)
[2018-07-06] MEDS: buPROPion TAB* 75 MG PO SCH (08:49)
--- NOTE | 2018-07-06 15:24 | PN ---
Subjective Interval History: Had TTE this AM - pending results. Patient reports feeling well and denies SI, although step-son is with patient and mentions to this rfp writer, privately, that he suspects patient is "just saying what the doctors want to hear" and worries the patient will attempt suicide again soon if discharged. Objective Active Medications: Amlodipine Besylate (Norvasc Tab*) 5 mg PO DAILY [facility] Last Admin: 07/06/18 08:49 Dose: 5 mg Bupropion HCl (Wellbutrin Tab*) 75 mg PO DAILY [facility] Last Admin: 07/06/18 08:49 Dose: 75 mg Hydroxyurea (Hydrea Cap*) 500 mg PO BID [facility] Last Admin: 07/06/18 08:49 Dose: 500 mg Hydroxyzine HCl (Atarax Tab*) 50 mg PO Q4H PRN PRN Reason: ANXIETY Last Admin: 07/06/18 02:46 Dose: 50 mg Melatonin (Melatonin) 3 mg PO BEDTIME PRN PRN Reason: SLEEP Last Admin: 07/05/18 21:56 Dose: 3 mg Multivitamins (Theragran Tab*) 1 tab PO DAILY [facility] Last Admin: 07/06/18 08:49 Dose: 1 tab Nadolol (Corgard Tab*) 40 mg PO DAILY [facility] Last Admin: 07/06/18 08:49 Dose: 40 mg Polyethylene Glycol/Electrolytes (Miralax*) 17 gm PO DAILY PRN PRN Reason: CONSTIPATION Sodium Chloride (Sodium Chloride Tab*) 1 gm PO BID [facility] Last Admin: 07/06/18 08:49 Dose: 1 gm Terazosin HCl (Hytrin Cap*) 2 mg PO BEDTIME [facility] Last Admin: 07/05/18 21:54 Dose: 2 mg Warfarin Sodium (Coumadin Tab(*)) 5 mg PO DAILY@1700 [facility] Last Admin: 07/05/18 17:15 Dose: 5 mg Vital Signs - 8 hr 07/06/18 07/06/18 07/06/18 07:37 08:14 12:14 Temperature 96.8 F 97.0 F Pulse Rate 70 74 Respiratory 16 16 16 Rate Blood Pressure 170/69 135/59 (mmHg) O2 Sat by Pulse 98 99 Oximetry Oxygen Devices in Use Now: None Appearance: well appearing, sitting in chair about to eat lunch, talking to stepson Ears/Nose/Mouth/Throat: Clear Oropharnyx, Mucous Membranes Moist Respiratory: Clear to Auscultation Cardiovascular: - - systolic murmur Abdominal: NL Sounds; No Tenderness; No Distention Extremities: - - 1+ pitting edema to mid-shins Result Diagrams: 07/05/18 10:18 07/06/18 05:35 Assess/Plan/Problems-Billing Assessment: 88M with afib on warfarin, SSS with PPM, essential thrombocythemia, MDD, HTN, BPH, that was admitted to [facility] after suicide attempt, found hyponatremic to 118 so transferred to medicine. Thought likely adverse effect from psych medications. - Patient Problems (1) Hyponatremia Comment: Hypotonic hyponatremia. Patient placed on Paxil on 06/27 and Seroquel on 07/02. Also chronically on losartan. 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 TSH normal this month. - discontinue SSRI and antipsychotic; switched ARB to CCB - maintain on fluid restriction and f/u BMP - f/u Echo - consider morning cortisol if not improving (2) Major depression Comment: Dr. Tatum following. Family closely involved and would like to be contacted for DC planning (son [place]: [phone]). Pt brought in after suicide attempt. - starting bupropion 07/06 - Dr. Tatum following, recommended to DC one-to-one - likely back to [facility] after hyponatremia improves (3) Essential thrombocythemia Comment: Follows with Dr. Be - continue hydroxyurea (4) Atrial fibrillation Comment: - Continue nadolol and coumadin, check INR in AM Status and Disposition: Inpatient, dispo likely back to [facility] when medically cleared.
[2018-07-06] MEDS: Warfarin TAB(*) 5 MG PO SCH (16:11)
--- NOTE | 2018-07-06 16:11 | ECHO ---
Patient: Isabella BARRIENTOS [facility] Rec#: [id number] : 1930 Date: 07/06/2018 Age: 88y Height: 175 cm / 68.9 in Weight: 72 kg / 158.7 lbs Sex: M BSA: 1.8 Room#: 440 Admit Date#: 07/04/2018 Type: Inpatient Referring: Marianna Og Reading: Ronald Chaney MD Behavioral Analyst: Bernice Dickson RN RDCS CC: Bigg Gallardo MD Transthoracic Echocardiogram Indication: Atrial fibrillation, hyponatremia BP: 121/54 HR: 70 Rhythm: Paced Findings History: HTN, A.fib, pacemaker insertion, depression Technical Comments: The study quality is fair. Left Ventricle: The left ventricular chamber size is normal. Moderate concentric left ventricular hypertrophy is observed. Global left ventricular wall motion and contractility are within normal limits. Left ventricular systolic function is at the lower limits of normal. The estimated ejection fraction is 50-55%. There is abnormal ventricular septal wall motion consistent with right ventricular pacemaker. Abnormal left ventricular diastolic function is observed. Left Atrium: The left atrium is severely dilated. Right Ventricle: The right ventricular cavity size is normal. The right ventricular global systolic function is normal. A pacemaker wire is visualized in the right ventricle. Right Atrium: The right atrial cavity size is severely dilated. A pacemaker wire is visualized in the right atrium. Aortic Valve: The aortic valve is trileaflet. The aortic valve leaflets are severely thickened with reduced systolic excursion. There is moderate aortic regurgitation. There is severe aortic stenosis. The mean gradient of the aortic valve is 26 mmHg. The peak instantaneous gradient of the aortic valve is 51 mmHg. The aortic valve area, by peak velocities, is calculated at 0.8 cm2. The aortic valve area, by VTI's, is calculated at 0.7 cm2. Highest aortic valve velocity was acquired with Pedoff in apical position. Mitral Valve: There is mitral annular calcification. The mitral valve leaflets are mildly thickened. There is moderate mitral regurgitation. There is no evidence of mitral stenosis. Tricuspid Valve: The tricuspid valve leaflets are normal. There is mild tricuspid regurgitation. There is evidence of mild to moderate pulmonary hypertension. There is no tricuspid stenosis. Pulmonic Valve: The pulmonic valve appears normal. There is a trace pulmonic regurgitation. There is no pulmonic stenosis. Pericardium: A trivial pericardial effusion is visualized. There are no signs of significant hemodynamic compromise. There is a circumferential pericardial effusion. Aorta: There is no dilatation of the ascending aorta. There is no dilatation of the aortic arch. There is no dilation of the aortic root. Pulmonary Artery: The main pulmonary artery appears normal. Venous: The inferior vena cava is dilated. There is less than 50% respiratory change in the inferior vena cava dimension. Summary: There are no significant changes when compared to the previous study done on 01/12/2017, no overt significant changes. Conclusions The left ventricular chamber size is normal. Moderate concentric left ventricular hypertrophy is observed. Left ventricular systolic function is at the lower limits of normal. The estimated ejection fraction is 50-55%. There is abnormal ventricular septal wall motion consistent with right ventricular pacemaker. Abnormal left ventricular diastolic function is observed. The left atrium is severely dilated. A pacemaker wire is visualized in the right ventricle. A pacemaker wire is visualized in the right atrium. There is moderate aortic regurgitation. There is severe aortic stenosis. The aortic valve area, by peak velocities, is calculated at 0.8 cm2. There is moderate mitral regurgitation. There is mild tricuspid regurgitation. There is evidence of mild to moderate pulmonary hypertension. There is a trace pulmonic regurgitation. A trivial pericardial effusion is visualized. There are no signs of significant hemodynamic compromise. Measurements Name Value Normal Range RVIDd (AP) 2D 2.6 cm (0.9 - 2.6) RVDdMajor (2D) 3.1 cm (2.2 - 4.4) RAd ISD 4CH 7.8 cm (3.4 - 4.9) RA (A4C)W 4.9 cm (2.9 - 4.6) IVSd (2D) 1.5 cm (0.6 - 1) LVPWd (2D) 1.5 cm (0.6 - 1) LVIDd (2D) 5.3 cm (3.6 - 5.4) Aortic Annulus 2.2 cm (1.4 - 2.6) Ao root diameter (2D) 3.3 cm (2.1 - 3.5) Ascending Ao 3.2 cm (2.1 - 3.4) Aortic arch 2.9 cm (1.8 - 3.4) LA dimension (AP) 2D 5.6 cm (2.3 - 3.8) LAd ISD 4CH 8.5 cm (2.9 - 5.3) LA ISD 4CH W 6 cm (2.5 - 4.5) Name Value Normal Range LA ESV BP (A/L) index 136 ml/m2 - Name Value Normal Range MV E-wave Vmax 1.4 m/sec - MV deceleration time 194 msec - LV septal e' Vmax 0.07 m/sec - LV lateral e' Vmax 0.09 m/sec - LV E:e' septal ratio 20 ratio - LV E:e' lateral ratio 15.6 ratio - Name Value Normal Range AV Vmax 3.6 m/sec - AV VTI 78.4 cm - AV peak gradient 51 mmHg - AV mean gradient 26 mmHg - LVOT diameter 2 cm - LVOT Vmax 0.88 m/sec - LVOT VTI 17.3 cm - LVOT peak gradient 3 mmHg - LVOT mean gradient 1 mmHg - DOI (VTI) 0.22 ratio - DOI (Vmax) 0.24 ratio - JOSAFAT (continuity Vmax) 0.8 cm2 - JOSAFAT (continuity VTI) 0.7 cm2 - BE Vmax 0.44 m/sec - Name Value Normal Range MR Vmax 5 m/sec - MR VTI 174 cm - MR volume (PISA) 54 ml - MR flow (PISA) 156.8 ml/sec - MR ERO 0.31 cm2 - MR PISA radius 0.9 cm - MR alias Vmax 30.8 cm/sec - Name Value Normal Range TR Vmax 2.7 m/sec - TR peak gradient 29 mmHg - RAP 15 mmHg - RVSP 44 mmHg - IVC diameter 2.5 cm - Name Value Normal Range PV Vmax 0.77 m/sec -
[2018-07-06 17:08] LABS: BUN/Creatinine Ratio 23.9 (8-20); Calcium 8.8 mg/dL (8.6-10.3); EGFR African American 99.4 (>60); EGFR Non-African American 82.1 (>60); Potassium 5.2 mmol/L (3.5-5.0)
[2018-07-06] MEDS: Terazosin CAP* 1 MG PO SCH (20:29)
[2018-07-07] MEDS: hydrOXYzine HCL TAB* 50 MG PO PRN ×3 (00:27→16:13)
--- NOTE | 2018-07-07 01:59 | PN ---
Hospitalist Progress Note Date of Service: 07/07/18 I was asked to come talk to Mr. Watson. He has been anxious this evening. I came to see him and offered emotional support. On my arrival, he is resting calmly in his bed. He spent some time on the crisis line this evening. 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 This is my first time meeting him, but I question hypomania and appreciate psychiatry's input later today. He is safe, calm, and no further intervention is indicated at this time.
[2018-07-07 05:33] LABS: BUN/Creatinine Ratio 27.5 (8-20); Calcium 8.6 mg/dL (8.6-10.3); EGFR African American 110.9 (>60); EGFR Non-African American 91.7 (>60); Potassium 4.4 mmol/L (3.5-5.0)
[2018-07-07] MEDS: amLODIPine TAB* 5 MG PO SCH (07:58)
[2018-07-07] MEDS: Vitamin THERAPEUTIC TAB PO SCH (07:58)
[2018-07-07] MEDS: buPROPion TAB* 75 MG PO SCH (07:58)
[2018-07-07] MEDS: HydroxyUREA CAP* 500 MG CAP PO SCH (07:58)
[2018-07-07] MEDS: Sodium Chloride TAB* 1 GM PO SCH (07:58)
[2018-07-07] MEDS: Nadolol TAB* 40 MG PO SCH (07:58)
[2018-07-07] MEDS ORDERED: NS 0.9% 1000 ML** 1,000 ML IV SCH (14:00)
[2018-07-07] MEDS: Warfarin TAB(*) 5 MG PO SCH (16:13)
[2018-07-07 16:29] VITALS: BP 149/62
[2018-07-07 17:18] LABS: Albumin/Globulin Ratio 1.5 (1-3); BUN/Creatinine Ratio 26.8 (8-20); Calcium 8.8 mg/dL (8.6-10.3); EGFR African American 107.8 (>60); EGFR Non-African American 89.1 (>60); Globulin 2.7 g/dL (2-4); Potassium 4.5 mmol/L (3.5-5.0); Total Protein 6.7 g/dL (6.4-8.9); Uric Acid 4.3 mg/dL (4.4-7.6)
--- NOTE | 2018-07-07 17:25 | PN ---
Subjective Date of Service: 07/07/18 Interval History: Pt reports feeling very depressed.Had a difficult night.Denies sob.Oriented *3 Objective Active Medications: Amlodipine Besylate (Norvasc Tab*) 5 mg PO DAILY [facility] Last Admin: 07/07/18 07:58 Dose: 5 mg Bupropion HCl (Wellbutrin Tab*) 75 mg PO DAILY [facility] Last Admin: 07/07/18 07:58 Dose: 75 mg Hydroxyurea (Hydrea Cap*) 500 mg PO BID [facility] Last Admin: 07/07/18 07:58 Dose: 500 mg Hydroxyzine HCl (Atarax Tab*) 50 mg PO Q4H PRN PRN Reason: ANXIETY Last Admin: 07/07/18 16:13 Dose: 50 mg Sodium Chloride (Ns 0.9% 1000 Ml) 1,000 mls @ 250 mls/hr IV PER RATE [facility] Last Admin: 07/07/18 13:35 Dose: 250 mls/hr Melatonin (Melatonin) 3 mg PO BEDTIME PRN PRN Reason: SLEEP Last Admin: 07/05/18 21:56 Dose: 3 mg Multivitamins (Theragran Tab*) 1 tab PO DAILY [facility] Last Admin: 07/07/18 07:58 Dose: 1 tab Nadolol (Corgard Tab*) 40 mg PO DAILY [facility] Last Admin: 07/07/18 07:58 Dose: 40 mg Polyethylene Glycol/Electrolytes (Miralax*) 17 gm PO DAILY PRN PRN Reason: CONSTIPATION Last Admin: 07/06/18 23:30 Dose: 17 gm Sodium Chloride (Sodium Chloride Tab*) 1 gm PO BID [facility] Last Admin: 07/07/18 07:58 Dose: 1 gm Terazosin HCl (Hytrin Cap*) 2 mg PO BEDTIME [facility] Last Admin: 07/06/18 20:29 Dose: 2 mg Warfarin Sodium (Coumadin Tab(*)) 5 mg PO DAILY@1700 [facility] Last Admin: 07/07/18 16:13 Dose: 5 mg Vital Signs - 8 hr 07/07/18 07/07/18 11:24 16:28 Temperature 96.9 F 97.6 F Pulse Rate 70 67 Respiratory 16 16 Rate Blood Pressure 101/46 149/62 (mmHg) O2 Sat by Pulse 100 98 Oximetry Oxygen Devices in Use Now: None Eyes: No Scleral Icterus Neck: NL Appearance and Movements; NL JVP Respiratory: Symmetrical Chest Expansion and Respiratory Effort, Clear to Auscultation Cardiovascular: NL Sounds; No Murmurs; No JVD Abdominal: NL Sounds; No Tenderness; No Distention Extremities: No Edema Skin: No Rash or Ulcers Neurological: Alert and Oriented x 3 Result Diagrams: 07/05/18 10:18 07/07/18 05:00 Diagnostic Imaging: CT Head (last admission) Patient Name: Isabella BARRIENTOS Medical Record#: [id number] Ordering Physician: Fang Johnson MD Acct.#: [id number] : 1930 Age: 88 Sex: M Location: [address] [place] [address]/TELEMETRY Exam Date: 06/05/18 131 ADM Status: ADM Dirk Order Information: CT BRAIN WO Accession Number: [id number] CPT: 37568 INDICATION: Slurred speech and facial droop COMPARISON: None. TECHNIQUE: Contiguous axial sections of the brain were obtained from the skull base to the vertex without contrast. FINDINGS: The ventricles, cisterns and sulci exhibit a mild degree of symmetrical involutional changes. There is a very mild degree of hypoattenuation of the periventricular and subcortical white matter most consistent with mild microvascular disease. The banks-white matter differentiation is adequately maintained and there is no sulcal effacement. No significant focal abnormality or mass effect is present. There is calcified atherosclerosis of the bilateral vertebral arteries and petrous carotid arteries. There is no evidence for intracranial hemorrhage. No significant focal osseous abnormality is present. The visualized portion of the paranasal sinuses appear clear. The mastoid air cells are well aerated bilaterally. IMPRESSION: Mild, age-appropriate chronic findings as described above without CT apparent acute intracranial abnormality. <Electronically signed by Shane Landon MD in [place]> 06/05/181407 Dictated By: Shane Landon MD Dictated Date/Time: 06/05/181407 Transcribed Date/Time: 06/05/181406 Copy to: Assess/Plan/Problems-Billing Assessment: 88M with afib on warfarin, SSS with PPM, essential thrombocythemia, MDD, HTN, BPH, that was admitted to [facility] after suicide attempt, found hyponatremic to 118 so transferred to medicine. Thought likely adverse effect from psych medications. - Patient Problems (1) Hyponatremia Current Visit: Yes Status: Acute Code(s): E87.1 - HYPO-OSMOLALITY AND HYPONATREMIA SNOMED Code(s): 45632476 Comment: Hypotonic hyponatremia. Patient placed on Paxil on 06/27 and Seroquel on 07/02. TSH normal this month. - discontinued SSRI and antipsychotic; - maintain on fluid restriction and f/u BMP - f/u Echo -Hyponatremia likely sec to meds. -Possible SIADH and component of hypovolemia -Serum osm low, urine osm borderline to high, urine na not fully distinguishable from siadh, hypovolemia -Either way urine osm 300 and na+K not more than meq load in NS and theoritically Na should not drop with NS administration if osm is the same -Will eval progress with 500cc NS admin to see if Na drops/improves for more conclusive dx of siadh and pt off the danger zone for seizure -Continue salt tabs and fluid restriction for now -Can continue salt tabs till Na > 135 and then stop and trial without as meds contributing stopped -Will check serum uric acid to distinguish between siadh and other etiology -Check cortisol -If Na stable, improved at 4 30 pm check, will transfer to [facility] as pt truly needs Psych support and very depressed and had a difficult day.Further f/u can be done in [facility] as outlined above (2) Atrial fibrillation Current Visit: Yes Status: Active Priority: Low Code(s): I48.91 - UNSPECIFIED ATRIAL FIBRILLATION SNOMED Code(s): 52099607 Comment: - Continue nadolol and coumadin, check INR in AM (3) Major depression Current Visit: Yes Status: Acute Code(s): F32.9 - MAJOR DEPRESSIVE DISORDER , SINGLE EPISODE, UNSPECIFIED SNOMED Code(s): 199582969 Comment: Dr. Tatum following. Family closely involved and would like to be contacted for DC planning (son [place]: [phone]). Pt brought in after suicide attempt. - starting bupropion 07/06 - Dr. aTtum following - likely back to [facility] after hyponatremia improves (4) Essential thrombocythemia Current Visit: Yes Status: Acute Code(s): D47.3 - ESSENTIAL (HEMORRHAGIC) THROMBOCYTHEMIA SNOMED Code(s): 968075369 Comment: Follows with Dr. Be - continue hydroxyurea Status and Disposition: Inpatient, dispo likely back to [facility] when medically cleared, possibly later today
--- NOTE | 2018-07-08 22:50 | PN ---
Amended report to correct patient account number. PROGRESS NOTE: DATE OF VISIT: 07/08/18 SERVICE: [facility] Nephrology. SUBJECTIVE: The patient was seen and examined at bedside. The patient appears more comfortable and appears to be doing better than when he was on the medical floor. Vitals and labs have been reviewed. Sodium rising appropriately and noted to be 129 today. PHYSICAL EXAMINATION: HEENT: NCAT. Heart: S1, S2 present. Regular at the time of the exam. Lungs: Decreased breath sounds bilaterally. Abdomen: Soft. Extremities: No edema. Neuro: Alert, oriented, having a conversation. 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 At this time, the patient is on salt tablets 1 tab p.o. b.i.d. with slow increase in sodium as expected, can increase the salt tabs to 1 tab p.o. t.i.d. Recommend checking BMP every day and once the sodium goes above 135 , the patient's salt tabs can be changed to 1 tab p.o. b.i.d. for 2 days. If the sodium noted to be consistent at 135 or above for 2 days, the salt tabs can be stopped and a trial without it can be done as the patient may have reversible cause of SIADH that may have resolved. If the patient continues to be in the [facility], the monitoring can be done in the hospital; however, if the patient gets discharged. A BMP can be checked as an outpatient and then his primary care physician can decide if the patient needs to continue the salt tabs or stop based on a trial of stopping the salt tabs once the sodium normalizes. [id number]/[facility] #: [id number] MERCEDES
--- NOTE | 2018-07-11 20:06 | CONS ---
Amended report to correct patient account number. NEUROLOGY CONSULTATION NOTE: DATE OF CONSULT: 07/11/18 CONSULTING PROVIDER: Dr. Alber Tatum. REASON FOR CONSULT: Slurred speech. 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 The patient was recently evaluated by Dr. Baltazar Thomas from Neurology on 06/05/18 for similar presentation. 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 He was off Coumadin for some time. He has a history of atrial fibrillation. He successfully underwent a procedure. However, before discharge, the patient developed some scatomas, headaches, and difficulty with speech. He was having trouble getting words out. His symptoms lasted 20 to 30 minutes. He was evaluated by Dr. Baltazar Thomas who diagnosed him with possible TIA versus complicated migraine since the patient does have history of migraines in the past. However, in light of his history of atrial fibrillation and he was off Coumadin, again he could not completely ruled out stroke. The patient underwent a CT head and a CTA head and neck, which showed no evidence of intracranial abnormality or intra/extracranial stenosis. I personally reviewed both imaging. The patient was able to go home. He did well for a few weeks until he developed suicide ideation and was admitted to the inpatient psychiatric unit. Since being hospitalized, the patient was put on Remeron, Wellbutrin for major depression and insomnia. The patient complained of feeling down and suicidal after he developed the cardiac issues. He stated that he developed a hematoma around the heart, which disappointed him because he was no longer able to work-out. His pleasure for exercise significantly diminished. He has increasing constipation. All these medical complaints caused him to become psychiatrically imbalanced. The patient today complains that he has some tremors in the upper extremity mostly when he is nervous and anxious. He also complained of feeling that his speech does wax and wane and he finds himself searching for words. He is on Coumadin with a therapeutic INR of 2.33 on 07/06/18. I personally spent 20 minutes on the phone with Mrs. Watson who asked me if I knew what was going on in regards to the patient's slurring of words. She is concerned about his overall condition and stated that we need further investigate for possible stroke or TIAs. I answered all her questions to the best of my ability. His spouse informed me today that he has always had two different ways of talking. 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 PAST MEDICAL HISTORY: As noted in HPI. PAST SURGICAL HISTORY: Pacemaker placement and lead revision. MEDICATIONS: 1. Acetaminophen 650 p.o. every 4 hours. 2. Maalox Plus. 3. Hydroxyzine 50 mg daily. 4. Melatonin 3 mg p.o. at bedtime. 5. Terazosin 2 mg p.o. at bedtime. 6. Quetiapine 25 mg p.o. at bedtime. 7. Nadolol 40 mg p.o. daily. 8. Losartan 50 mg p.o. daily. 9. Paroxetine 10 mg p.o. daily. 10. Amlodipine 5 mg p.o. daily. 11. Sodium tablets. 12. Bupropion 75 mg p.o. daily. 13. Warfarin 5 mg p.o. daily. 14. Mirtazapine 7.5 mg daily. ALLERGIES: CAT DANDER, SOTALOL and RAHDA INHIBITOR. FAMILY HISTORY: Negative for stroke or seizures. REVIEW OF SYSTEMS: A 14-point review of systems was obtained and otherwise negative, except for what was mentioned in the HPI. PHYSICAL EXAM: Vitals: Temperature of 97.1, pulse rate of 70, respiratory rate of 16, oxygen saturation of 100, blood pressure of 148/62. General: Well- nourished, well-developed man in no acute distress, alert, cooperative. Head: Normocephalic without obvious abnormality. Eyes: Conjunctivae/corneae are clear. Neck is supple and symmetrical. No carotid bruits. Lungs are clear to auscultation. Extremities: Normal range of motion with no cyanosis. Skin: No skin lesions or lacerations. Psych: Flat affect and slightly depressed mood. He has pressured speech. Mental Status: Awake, alert, and oriented to person, place, time, and general circumstances. He does have some hesitant and pressured speech, but no dysarthria or aphasia. Cranial Nerves: Brewer cognitive assessment was completed today and he scored 25/30 with following deficits and inability to copy the cube, cannot complete the puzzle and was able to only recall 2/5 objects after a total of 90 seconds. Otherwise, cranial nerves normal confrontation testing bilaterally. Pupils are mild range and reactive to light. Normal consensual response. Sensation is intact on the forehead, cheeks, and jaw region bilaterally. There is no facial droop. He is able to hear throughout the history process. Tongue is symmetrical and midline with no atrophy or fasciculation. Motor Examination: No abnormal movements or pronator drift. Normal bulk and tone throughout. No fasciculation. Motor strength is 5/5 throughout. Reflexes: Right/left, brachioradialis, biceps, triceps, patella, ankle are 2/2 bilaterally; plantar flexor/flex. Sensation is intact to light touch and pin throughout. Coordination: Normal [id number] and rapid alternating movement. Gait and station narrow based, normal stance. Most recent labs: TSH .79. 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 I do not suspect that he has transient ischemic attacks. His speech abnormalities was worse when he feels anxious, questioned, or when interrupted while talking. He has no facial weakness or motor symptoms to suggest a transient ischemic attack or stroke. I personally contacted Mrs. Watson and reassured her. I also encouraged her to share this information with her family for whom she would like me to speak with. I informed her that her son can contact the hospital and I would be more than happy to answer any of his questions. I do notice that the patient does have some mild memory impairment which the family has also noticed over the last 8 weeks. He most likely has mild cognitive impairment; however, pseudodementia in the setting of depression cannot be entirely excluded. Time will tell to assess if the patient gets better after he is treated for his depression or if it progresses, consistent with mild cognitive impairment. I do not recommend any further testing or evaluation other than obtaining a vitamin B12 level and making sure that it is over 400. I do not think we need an EEG given the suspicion for seizure is extremely low. I did educate and personal financial counselor and Mrs. Watson regarding the current environmental situation where he really should not be in an inpatient psychiatric unit if he does not have any active acute psychiatric conditions. The patient would most likely be more comfortable and suited at home where he would have time to hopefully recover rather than being around other ill patients with underlying psychiatric conditions. Mrs. Watson stated that she would discuss this further with her sons and see if the patient would agree to go home the next few days. I will sign off but please note that we're available for any questions. TIME SPENT: I spent a total of 70 minutes, of which more than 50% was spent interviewing the patient, examining the patient, education, counseling, and discussing the treatment plan with the patient and family. [id number]/[facility] #: [id number] [place]CEDES
[2018-07-12 06:53] LABS: Sodium 134 mmol/L (135-145)
--- NOTE | 2018-07-12 14:59 | CONS ---
Amended report to correct patient account number. PSYCHOLOGICAL REPORT DATE OF CONSULTATION: 07/11/2018. PROCEDURE CODE: [id number]. REASON FOR REFERRAL: Mr. Watson, who goes by Charan, was referred for psychological testing secondary to the family's concerns regarding possible bipolar disorder. TEST ADMINISTERED: Charan completed the [place] Multiphasic Personality Inventory-2 (MMPI-2), and was given feedback in individual conversation. He was also seen by this database report writer in the context of cognitive behavioral group psychotherapy on two occasions. 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 He, according to his records, had a hematoma around his heart which had precluded him from his characteristic exercise regime. Charan identifies engaging in his morning exercise group as a very joyful experience which is assuredly a way to improve his affect and help him feel connected to other people in his group. Although he describes himself as a person who does not have close friends, he appreciates the social contact with people in structured situations such as exercise programming or in other volunteer or vocational positions historically. 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 He spoke glowingly of his experience there, feeling he was able to help people and do relevant work which helped to save lives. Currently , Charan is doing very well, presenting with a bright affect and engaging in conversation in spontaneous and coherent fashion. He was able to clarify what had initially thought to have been paranoid mentation while on the unit as he did not understand the staff's routine which includes taking personal items from person's rooms before the evening hours. He felt very offended by this and that someone had been stealing his belongings. This then seemed to escalate into larger and more profound concerns about staff's conduct where he read malicious intent when there was none. He was greatly relieved when this issue was cleared up and staff informed him of unit protocol and routines. Charan participated in CBT programming in insightful and topical fashion. He related to staff and peers in an empathic fashion and was clear and coherent in conversation. He expressed gratitude for his treatment and relief that his symptoms seem to be remitting. TEST RESULTS: Charan gives a moderately distressed profile, having elevated two to three emotional duress scales significantly. His significant finding on clinical scale support concerns regarding major depressive episode characterized by very high scoring on the depression scale, concomitantly with very low scores occurring on the hypomania scale. This is descriptive of people who are endorsing often vegetative symptoms of depression and who may feel low energy and listless at times. He also elevates the psychasthenia scale significantly which is indicative of anxiety as well as the paranoia scale. Concerns regarding paranoia were clarified with Charan who did not understand why his personal belongings kept going missing. IMPRESSIONS/RECOMMENDATIONS: Concerns regarding bipolar condition were not supported either in the testing context or in Charan's clinical presentation while here. His confusion regarding what was initially thought to be paranoid mentation was addressed and cleared up with simple understanding of unit routines. He describes being very grateful for not only this clinical experience, but for his overall life experience and identifies having a wonderful family who remain very supportive. He remains future oriented, describing being anxious to get back home and to his usual routine. 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 Charan impresses as likely candidate to continue to follow through with recommended outpatient treatment and recommendations, as well adhere to prescribed medications. Jason Melo, PhD Clinical Psychologist [id number]/[facility] #: [id number] [place]
--- NOTE | 2018-07-19 13:36 | DS ---
Subjective - Subjective Service Types: 26038 [facility] Day Mgmt complex over 30 min Discharge Date: 07/05/18 Subjective: please see discharge summary from 07/12/18 Discharge Planning - Discharge Planning Discharge Planning: Prescriptions provided for discharge [] Yes [] No Follow up care details as per social work arrangements. Patient response to discharge plan: [] eager for discharge [] agreeable with discharge plan [] ambivalent about discharge [] disagrees with discharge today
--- NOTE | 2018-07-21 13:31 | DS ---
TRANSFER SUMMARY: DATE OF ADMISSION: 07/04/18 DATE OF DISCHARGE: 07/07/18 Please note that this is a transfer summary when the patient was discharged from the medical floor to the [facility] on 07/07/18. Please refer to the note on 07/07/18 for full details. Briefly, the patient w as transferred from the B[facility] to the medical floor for hyponatremia as sodium was noted to be 118. His SSRI and antipsychotic were initially stopped. TSH was normal. 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 The patient's sodium improved with salt tablets to 127. Case was signed out to Psychiatry as the patient was continuing to be very depressed, and when the sodium was 127, he was transferred back to BSU. Please refer to the discharge summary dictated by Psych for further plan. With respect to his hyponatremia, the plan was to continue him on salt tabs, and once the sodium is consistently above 13 5, can attempt to stop the salt tabs as the patient may have a reversible cause of SIADH that may hav e resolved. If the patient is discharged from the B[facility] before this, a BMP can be checked as an outpat ient and his primary care physician can decide if the patient continues with the salt tabs or stop ba sed on the trial of stopping the salt tabs once the sodium normalizes. Vitals and labs noted to be s table at the time of discharge. Please refer to my progress note from that date for full details. TIME SPENT: Total time spent with the patient is equal to 35 minutes. [id number]/[facility] #: [id number]
== END 2018-07-12 12:50 | DRG 641 ==
LOC: ED 16:18 → BSU 18:28 → MEDTELE 07-05 15:53 → BSU 07-07 18:00 → UNDODISIN 07-07 19:30
PROVIDERS: ADMIT Psychiatry & Neurology Psychiatry; ATTEND Internal Medicine
DX: E87.1 Hypo-osmolality and hyponatremia (principal); T43.505A Adverse effect of unspecified antipsychotics and neuroleptics, initial encounter; E86.1 Hypovolemia; I48.91 Unspecified atrial fibrillation; Y92.230 Patient room in hospital as the place of occurrence of the external cause; F32.9 Major depressive disorder, single episode, unspecified; D47.3 Essential (hemorrhagic) thrombocythemia; I35.0 Nonrheumatic aortic (valve) stenosis; I10 Essential (primary) hypertension; N40.0 Benign prostatic hyperplasia without lower urinary tract symptoms; Z95.0 Presence of cardiac pacemaker; Z88.8 Allergy status to other drugs, medicaments and biological substances; Z79.01 Long term (current) use of anticoagulants; Z79.899 Other long term (current) drug therapy; Z86.73 Personal history of transient ischemic attack (TIA), and cerebral infarction without residual deficits
CPT/HCPCS: 36415; 80048; 80053; 80061; 80307; 80320; 80329; 81003; 81015; 82533; 82570; 82607; 83036; 83930; 83935; 84133; 84300; 84443; 84550; 85025; 85610; 87086; 90853; 93005; 93306; 96130; 99222; 99233; 99238; 99284; A9270-GY; G0480

== ENCOUNTER 2018-07-07 19:30 | Inpatient (IN) | payer MEDICARE, OTHER ==
--- OUTSIDE RECORDS SUMMARY | 2018-07-07 20:56 | XMS REPORT | Continuity of Care Document ---
:1930 External Reference #:[id number] Author Name Chelsy Chacon Care Team Providers Name Role Phone Bigg Gallardo MD Primary Care Physician Unavailable Payers Date Identification Numbers Payment Provider Subscriber Policy Number: [id number] Medicare Salomon Keith PayID: [id number] [address] [place] [address] Policy Number: [id number] [employer] Salomon Keith Group Number: [id number] [address] PayID: [id number] [place] [address] Advance Directives Description No Information Available Problems Date Description Provider Status Onset: 02/05/2016 Atrial fibrillation Earl Whitt M.D. Active Onset: 02/05/2016 Cardiac pacemaker in situ Earl Whitt M.D. 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 Partial 35.3 seconds N 26.0- 36.[address] [place] [address] PTT [phone] CBC Auto Diff 05/29/2018 [facility] White Blood 5.9 10^3/uL N 3.5-10.[address] [place] [address] [phone] Red Blood Count 2.57 10^6/uL Low 4.00-5.40 [...] Red Blood Cells % 0.1 Inr/Protime 05/29/2018 [facility] Inr 1.49 High 0.77-1.02 [address] [place] [address] [phone] Basic Metabolic 05/29/2018 [facility] Sodium 138 mmol/L N 135- 145 Panel [address] [place] [address] [phone] Potassium 4.7 mmol/L N 3.5-5.0 Chloride 103 mmol/L N 101-111 Co2 Carbon Dioxide 29 mmol/L N 22-32 Anion Gap 6 mmol/L N 2-11 Glucose 85 mg/dL N 70-100 Blood Urea Nitrogen 28 mg/dL High 6-24 Creatinine 0.99 mg/dL N 0.67-1.17 BUN/Creatinine Ratio 28.3 High 8-20 Calcium 9.3 mg/dL N 8.6-10.3 Egfr Non- 71.7 >60 Egfr 86.7 >60 2 Cell Morphology 05/29/2018 [facility] Macrocytosis 3+ [address] [place] [address] [phone] Laboratory test 04/02/2018 [facility] LDH 185 U/L N 140-[address] [place], [place] [id number] [phone] Direct Jatinder NEGATIVE CBC Auto 04/02/2018 [facility] Red Blood 2.40 10^6/uL Low 4.00 -5.[address] Count [place], [place] [address] [phone] White Blood Count 6.7 10^3/uL N 3.5-10.8 [...] Blood Cells % 0.1 Laboratory test 04/02/2018 [facility] Haptoglobin <14 mg/dL Abnormal 30 - [address] [place], [place] [id number] [phone] Retic Count 04/02/2018 [facility] Retic Count 0.8 % N 0.5-1.[address] [place] [address] [phone] Mean Retic Volume 166.1 Immature Retic Fraction 0.54 RBC Retic Count 2.40 10^6/uL Low 4.6-6.2 Corrected Retic Count 0.5 % N 0.5-1.5 Maturation Factor Retic 1.5 Retic Index 0.30 Hematocrit for Retic CNT 30 % Low 42-52 Laboratory test 12/05/2016 [facility] Surgical SEE RESULT [address] [place] [address] [phone] Basic Metabolic 12/02/2016 [facility] Sodium 135 mmol/L N 133- [address] [place] [address] [phone] Potassium 4.6 mmol/L N 3.5-5.0 Chloride 103 mmol/L N 101-111 Co2 Carbon Dioxide 28 mmol/L N 22-32 Anion Gap 4 mmol/L N 2-11 Glucose 93 mg/dL N 70-100 Blood Urea Nitrogen 30 mg/dL High 6-24 Creatinine 0.88 mg/dL N 0.67-1.17 BUN/Creatinine Ratio 34.1 High 8-20 Calcium 9.0 mg/dL N 8.6-10.3 Egfr Non- 82.5 N >60 Egfr 106.1 N >60 6 Inr/Protime 12/02/2016 [facility] Inr 2.76 High 0.89-1.[address] [place] [address] [phone] CBC Auto Diff 12/02/2016 [facility] White Blood 5.6 N 3.5- 10.[address] Count 10^3/[place] [address] [phone] Red Blood Count 2.53 10^6/uL Low 4.0-5.4 [...] Cells % 0.1 N Pre Cath 12/02/2016 [facility] Partial 47.5 seconds High 26.0- 36.3 [address] [place] [address] PTT [phone] Consistent with Previous Results Reported on [...] Reported on 01/26/18 4 Test Performed by: [address] [address] 5 SEE RESULT BELOW Name: SALOMON BARRIENTOS : [address]: Earl Whitt MD Acct: [id number] Unit: [id number] AGE: 86 Location: [facility] Re12/05/16 SEX: M Status: REG REF SPEC: [id number] HANNA: 12/05/16-[address]: Earl Whitt MD REQ: [id number] RECD: 12/05/166 STATUS: SOUT _ ORDERED: LEVEL [address] [employer] generator, removal: Foreign body ([employer] [facility]uk[employer] generator) (Gross diagnosis). 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 The following inscription is identified: [employer] [facility] ACCENT SR RF [id number] SSIR S/N [id number]. Per established hospital medical staff protocol, no tissue is submitted. Gross only. Signed (signature on file) Prateek Brown MD 0948 END OF REPORT * ML=Testing performed at Main Lab DEPARTMENT OF PATHOLOGY, [address] [place] [address] Prateek Brown M.D. Director [facility] # [id number] Because ethnic data is not always [...] ok Procedures Date Code Description Status 06/28/2018 94104 Icd Eval Sing,Dual,Multi Lead Remote Recpt Transm Tech Rev Completed Tech S 06/28/2018 95977 Pacemaker Check Remote Up To 90Days Single,Dual,Multiple Completed Lead 06/15/2018 63676 I&D Of Hematoma Completed 06/12/2018 22577 EKG Tracing & Interpretation Completed 06/05/2018 51602 Icd Eval Sing,Dual,Multi Lead Remote Recpt Transm Tech Rev Completed Tech S 06/05/2018 32540 Pacemaker Check Remote Up To 90Days Single,Dual,Multiple Completed Lead 06/04/2018 44834 Insrt/Replce/Repostn PMKR/Aicd - Atrial/Ventricular Completed 12/28/2017 67343 Pace Maker Eval W/Iterative Adjustment Single Lead Completed 12/28/2017 89757 Pace Maker Eval W/Iterative Adjustment Single Lead Completed 08/04/2017 46442 EKG Tracing & Interpretation Completed 07/12/2017 26804 Interrogation Device Eval In Person W/DR Completed Analysis,Single,Dual,Mul 07/12/2017 47669 Interrogation Device Eval In Person W/DR Completed Analysis,Single,Dual,Mul 06/12/2017 53292 Icd Eval Sing,Dual,Multi Lead Remote Recpt Transm Tech Rev Completed Tech S 06/12/2017 68091 Pacemaker Check Remote Up To 90Days Single,Dual,Multiple Completed Lead 05/19/2017 33160 Stress Test Completed 05/19/2017 78334 Myocardial Perfusion Imaging Tomographic (Spect) Multiple Completed Studies 01/12/2017 65211 ECHO Transthoracic, Real-Time 2D With Doppler And Color Completed Flow 01/12/2017 14931 ECHO Transthoracic, Real-Time 2D With Doppler And Color Completed Flow 01/03/2017 36974 EKG Tracing & Interpretation Completed 12/28/2016 38937 Pace Maker Eval W/Iterative Adjustment Single Lead Completed 12/28/2016 59403 Pace Maker Eval W/Iterative Adjustment Single Lead Completed 12/05/2016 87359 Removal Pacemaker W/Replacement Of Pacemaker Pulse Completed Generator 11/23/2016 42080 Pace Maker Eval W/Iterative Adjustment Single Lead Completed 09/23/2016 08242 Interrogation Device Eval In Person W/DR Completed Analysis,Single,Dual,Mul 07/08/2016 28672 Pace Maker Eval W/Iterative Adjustment Single Lead Completed 04/07/2016 88641 Icd Eval Sing,Dual,Multi Lead Remote Recpt Transm Tech Rev Completed Tech S 04/07/2016 97746 Pacemaker Check Remote Up To 90Days Single,Dual,Multiple Completed Lead 02/05/2016 19955 EKG Tracing & Interpretation Completed 01/07/2016 93475 Pace Maker Eval W/Iterative Adjustment Single Lead Completed 07/21/2015 68977 Icd eval w/iterative adjment single lead Icd Completed 02/12/2015 50393 Pacemaker Check Remote Up To 90Days Single,Dual,Multiple Completed Lead 02/12/2015 50776 Icd Eval Sing,Dual,Multi Lead Remote Recpt Transm Tech Rev Completed Tech S 01/22/2015 82386 EKG Tracing & Interpretation Completed 01/21/2015 26449 Interrogation Device Eval In Person W/DR Completed Analysis,Single,Dual,Mul 08/18/2014 60993 Icd Eval Sing,Dual,Multi Lead Remote Recpt Transm Tech Rev Completed Tech S 08/18/2014 90416 Pacemaker Check Remote Up To 90Days Single,Dual,Multiple Completed Lead 07/29/2014 02717 Interrogation Device Eval In Person W/ Completed Analysis,Single,Dual,Mul 01/23/2014 98321 Pace Maker Eval W/Iterative Adjustment Single Lead Completed 01/21/2014 01574 ECHO Transthoracic, Real-Time 2D With Doppler And Color Completed Flow 01/17/2014 46827 EKG Tracing & Interpretation Completed Encounters Type Date Location Provider Dx Diagnosis Office Visit 06/07/2018 [facility] Berta Abreu, Z95.0 Presence of 12:45p Of Stephy Hein cardiac pacemaker I48.2 Chronic atrial fibrillation Office Visit 06/05/2018 [facility] Baltazar R47.1 Dysarthria and 7:00a Leonardo Thomas M.D. anarthria H53.19 Other subjective visual disturbances I48.91 Unspecified atrial fibrillation I10 Essential (primary) hypertension Z79.01 residential (current) use of anticoagulants Office Visit 06/05/2018 2:49p [facility] Earl Larkin R47.89 Other speech Of Stephy Whitt M.D. disturbances H53.9 Unspecified visual disturbance Office Visit 05/25/2018 9:00a [facility] Earl Larkin I48.2 Chronic atrial Of Stephy Whitt M.D. fibrillation Z95.0 Presence of cardiac pacemaker T82.110A Breakdown (mechanical) of cardiac electrode, init encntr Office Visit 08/04/2017 11:45a [facility] Earl Larkin Z95.0 Presence of Of Stephy Whitt M.D. cardiac pacemaker I48.2 Chronic atrial fibrillation I35.0 Nonrheumatic aortic (valve) stenosis Office Visit 04/25/2017 1:45p [facility] Earl Larkin I48.2 Chronic atrial Of [employer] Whitt M.D. fibrillation Z95.0 Presence of cardiac pacemaker I47.2 Ventricular tachycardia I35.0 Nonrheumatic aortic (valve) stenosis Office Visit 12/02/2016 11:00a [facility] MAKSIM Huang Z95.0 Presence of Of Stephy cardiac pacemaker R42 Dizziness and giddiness I34.0 Nonrheumatic mitral (valve) insufficiency Office Visit 02/05/2016 11:00a [facility] Earl D. Z95.0 Presence of Of Stephy Whitt M.D. cardiac pacemaker I48.91 Unspecified atrial fibrillation Office Visit 01/22/2015 11:15a [facility] Earl Larkin I48.2 Chronic atrial Of Stephy Whitt M.D. fibrillation Office Visit 01/17/2014 4:00p [facility] Earl Larkin 427.31 Atrial Of Stephy Whitt M.D. Fibrillation 424.0 Mitral Valve Disorder Plan of Treatment Future Appointment(s):10/03/2018 2:30 pm - Earl Whitt M.D. at [facility]07/10/2018 2:30 pm - Ica Pacer Schedule at [facility]07/03/2018 - Earl Whitt M.D.Z95.0 Presence of cardiac pacemakerNew Orders:Interrogation Pacemaker, Ordered: 07/03/18Follow up:3 wmxcykQ74.5 Sick sinus fnhzypbcG74.2 Chronic atrial zikxgrlthtneO40.110D Breakdown (mechanical) of cardiac electrode, subsequent enco
[2018-07-07] MEDS ORDERED: Acetaminophen TAB* 325 MG PO PRN (21:18)
[2018-07-07] MEDS ORDERED: Al Hydrox/Mg Hydrox/Simet LIQ* 30 ML UDC PO PRN (21:19)
[2018-07-07] MEDS ORDERED: hydrOXYzine HCL TAB* 50 MG ONE (21:27)
[2018-07-07] MEDS: hydrOXYzine HCL TAB* 50 MG PO PRN (21:27)
[2018-07-07] MEDS ORDERED: Melatonin 3 MG TAB PO PRN (21:30)
[2018-07-07] MEDS: HydroxyUREA CAP* 500 MG CAP PO SCH (22:08)
[2018-07-07] MEDS: QUEtiapine TAB* 25 MG PO SCH (22:09)
[2018-07-07] MEDS: Terazosin CAP* 1 MG PO SCH (22:10)
[2018-07-08] MEDS: hydrOXYzine HCL TAB* 50 MG PO PRN ×4 (02:30→20:27)
[2018-07-08] MEDS: HydroxyUREA CAP* 500 MG CAP PO SCH ×2 (08:26→20:22)
[2018-07-08] MEDS: Losartan TAB* 25 MG PO SCH (08:26)
[2018-07-08] MEDS: buPROPion TAB* 75 MG PO SCH (08:26)
[2018-07-08] MEDS: Multivitamins/Minerals TAB PO SCH (08:26)
[2018-07-08] MEDS: amLODIPine TAB* 5 MG PO SCH (08:26)
[2018-07-08] MEDS: Nadolol TAB* 40 MG PO SCH (08:26)
[2018-07-08] MEDS ORDERED: PARoxetine HCL TAB* 10 MG PO SCH (09:00)
[2018-07-08] MEDS ORDERED: Sodium Chloride TAB* 1 GM PO SCH (09:00)
--- NOTE | 2018-07-08 17:01 | HP ---
H&P (Free Text) History and Physical: For full psychiatric H&P for this readmission, please see Dr Llanes reports from 07.05.18 and 07.06.18. The following is an update on elements of that H&P that have changed following admission to the medical floor for treatment of hyponatremia. Justification for readmission For continued assessment and treatment of depressive illness that had led to suicide attempt by hanging prompting initial psychiatric admission. Dr Wiley assessed patient on 07.07.18 as adequately recovered from hyponatremia to return to unit with daily checks of sodium, 1 gram sodium chloride by mouth twice daily, and fluid restrictions to 1 L until [Na+] > 135, at which point fluid restrictions could be lifted and oral sodium discontinued. For latest REVIEW OF SYSTEMS and PHYSICAL EXAM, refer to Dr Johnson 07.07.18 progress note. Labs Laboratory Results - last 24 hr 07/08/18 07:47 Sodium 129 L Current meds Current Medications Acetaminophen (Tylenol Tab*) 650 mg PO Q4H PRN PRN Reason: PAIN; OR TEMP>101 Al Hydrox/Mg Hydrox/Simethicone (Maalox Plus*) 30 ml PO Q4H PRN PRN Reason: INDIGESTION Amlodipine Besylate (Norvasc Tab*) 5 mg PO DAILY [facility] Last Admin: 07/08/18 08:26 Dose: 5 mg Bupropion HCl (Wellbutrin Tab*) 75 mg PO DAILY [facility] Last Admin: 07/08/18 08:26 Dose: 75 mg Hydroxyurea (Hydrea Cap*) 500 mg PO BID [facility] Last Admin: 07/08/18 08:26 Dose: 500 mg Hydroxyzine HCl (Atarax Tab*) 50 mg PO Q4H PRN PRN Reason: ANXIETY Last Admin: 07/08/18 14:40 Dose: 50 mg Losartan Potassium (Cozaar Tab*) 50 mg PO DAILY [facility] Last Admin: 07/08/18 08:26 Dose: 50 mg Melatonin (Melatonin) 3 mg PO BEDTIME PRN PRN Reason: SLEEP Last Admin: 07/08/18 02:30 Dose: 3 mg Multivitamins/Minerals (Theragran/Minerals Tab*) 1 tab PO DAILY [facility] Last Admin: 07/08/18 08:26 Dose: 1 tab Nadolol (Corgard Tab*) 40 mg PO DAILY [facility] Last Admin: 07/08/18 08:26 Dose: 40 mg Paroxetine HCl (Paxil Tab*) 10 mg PO DAILY [facility] Last Admin: 07/08/18 08:40 Dose: Not Given Polyethylene Glycol/Electrolytes (Miralax*) 17 gm PO DAILY PRN PRN Reason: CONSTIPATION Quetiapine Fumarate (Seroquel Tab*) 25 mg PO BEDTIME [facility] Last Admin: 07/07/18 22:09 Dose: 25 mg Sodium Chloride (Sodium Chloride Tab*) 1 gm PO BID [facility] Last Admin: 07/08/18 08:26 Dose: 1 gm Terazosin HCl (Hytrin Cap*) 2 mg PO BEDTIME [facility] Last Admin: 07/07/18 22:10 Dose: 2 mg Warfarin Sodium (Coumadin Tab(*)) 5 mg PO DAILY@1700 [facility] MSE Good grooming and hygiene. Looking very fit and healthy for a man his age. Normal volume and prosody of speech. Good eye contact and well engaged. Reports mood as better with calm and even affect. Denies ever any AH/VH/PI/ HI. Reports resolution of SI. Insight, judgment and impulse control all appear to be good, judging by current report. Assessment Mr Watson reports that his mood and sleep are improved and he no longer has any thoughts of suicide. He reports that his suicidal thoughts and actions were provoked by having been faced with his mortality through troubles with his pacemaker, including persistent hematoma and corroded wire needing surgery to replace. He is looking forward to working with the weekday team to continue care for his depressive illness. Diagnoses Major Depressive Disorder, Severe Plan Continue treatment plan formulated on initial admission. Monitor for full resolution of hyponatremia. Have contacted Dr Wiley via Dr Arredondo for clarification of recommended monitoring frequency once sodium rises past 135, awaiting reply.
[2018-07-08] MEDS: Warfarin TAB(*) 5 MG PO SCH (17:52)
[2018-07-08] MEDS: Polyethylene Glycol 3350* 17 GM PACKET PO PRN (18:56)
[2018-07-08] MEDS: QUEtiapine TAB* 25 MG PO SCH (20:21)
[2018-07-08] MEDS: Terazosin CAP* 1 MG PO SCH (20:22)
[2018-07-08] MEDS: Sodium Chloride TAB* 1 GM PO SCH (20:22)
--- NOTE | 2018-07-08 22:50 | PN ---
PROGRESS NOTE: DATE OF VISIT: 07/08/18 SERVICE: [facility] Nephrology. SUBJECTIVE: The patient was seen and examined at bedside. The patient appears more comfortable and appears to be doing better than when he was on the medical floor. Vitals and labs have been reviewed. Sodium rising appropriately and noted to be 129 today. PHYSICAL EXAMINATION: HEENT: NCAT. Heart: S1, S2 present. Regular at the time of the exam. Lungs: Decreased breath sounds bilaterally. Abdomen: Soft. Extremities: No edema. Neuro: Alert, oriented, having a conversation. 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 At this time, the patient is on salt tablets 1 tab p.o. b.i.d. with slow increase in sodium as expected, can increase the salt tabs to 1 tab p.o. t.i.d. Recommend checking BMP every day and once the sodium goes above 135 , the patient's salt tabs can be changed to 1 tab p.o. b.i.d. for 2 days. If the sodium noted to be consistent at 135 or above for 2 days, the salt tabs can be stopped and a trial without it can be done as the patient may have reversible cause of SIADH that may have resolved. If the patient continues to be in the [facility], the monitoring can be done in the hospital; however, if the patient gets discharged. A BMP can be checked as an outpatient and then his primary care physician can decide if the patient needs to continue the salt tabs or stop based on a trial of stopping the salt tabs once the sodium normalizes. [id number]/[facility] #: [id number] [facility]
[2018-07-09] MEDS: Nadolol TAB* 40 MG PO SCH (09:03)
[2018-07-09] MEDS: buPROPion TAB* 75 MG PO SCH (09:03)
[2018-07-09] MEDS: amLODIPine TAB* 5 MG PO SCH (09:03)
[2018-07-09] MEDS: Multivitamins/Minerals TAB PO SCH (09:04)
[2018-07-09] MEDS: HydroxyUREA CAP* 500 MG CAP PO SCH ×2 (09:04→21:26)
[2018-07-09] MEDS: Losartan TAB* 25 MG PO SCH (09:04)
[2018-07-09] MEDS: Sodium Chloride TAB* 1 GM PO SCH ×3 (09:04→21:26)
[2018-07-09] MEDS: hydrOXYzine HCL TAB* 50 MG PO PRN (09:11)
--- NOTE | 2018-07-09 12:07 | PN ---
Subjective - Subjective Date of Service: 07/09/18 Service Type: 27813 Hosp care 35 min high complexity Subjective: CC: I feel paranoid" Patient is attending daily group activities. His called today to report that he has been paranoid today thinking someone took his bandaids. He said " I am have been paranoid lately." He said that he thought because he had a red hospital bracelet that he was the only one and something must be wrong with him. Briefly after reassurance he said " I know this sounds crazy". Patient did not report prior instances of feeling paranoid. He said that he did not get good sleep overnight and has had a diminished appetite. He is requesting to have his bed changed to a regular bed because it is too high. Staff assisted with lowering the bed. His daughters are coming to visit today from [place]. Upon his transfer to the [facility] , he received seroquel, which was later discontinued. Objective - Appearance Appearance: Thin Framed Dysmorphic Features: No Hygiene: Normal Grooming: Well Kept - Behavior Psychomotor Activities: Normal Exhibits Abnormal Movement: No - Attitude and Relatedness Attitude and Relatedness: Cooperative Eye Contact: Fair - Speech Quality: Unpressured Latencies: Normal Quantity: Appropriate - Mood Patient's Decription of Mood: "Fine" - Affect Observed Affect: Constricted Affect Consistent with: Euthymia - Thought Process Patient's Thought Process: Goal Directed Thought Content: Yes Paranoid Ideation, No Passive Wish, No Suicidal Planning, No Homicidal Ideation - Sensorium Experiencing Hallucinations: No, Sensorium is Clear Type of Hallucinations: Visual: No, Auditory: No, Command: No - Level of Consciousness Level of Consciousness: Alert Orientation: Yes Intact, Yes Orientated to Time, Yes Orientated to Place, Yes Orientated to Person - Impulse Control Impulse Control: Tenuous - Insight and Judgement Insight and Judgement: Fair - Group Participation Particating in Group Activities: Yes - Medication Management Medication Management Adherence: Yes Assessment - Assessment Clinical Impression: Assessment: 88 year old male with a history of depression and recent suicide attempt came to the hospital with low sodium and depressive features Plan - Plan Treatment Plan: Name: Isabella REGAN Birthdate: 1930 [id number] Plan #Patient continues to require psychiatric inpatient hospitalization #Medical management per medical team. #Continue wellbutrin 75mg daily #Start remeron 7.5mg daily #Continue to follow Na levels. #Monitor vital signs Vital Signs Temp Pulse Resp BP Pulse Ox 98.2 F 70 16 156/65 100 07/09/18 07:56 07/09/18 07:56 07/09/18 11:03 07/09/18 07:56 07/09/18 07:56 Laboratory Results - last 24 hr 07/09/18 07:32 Sodium 129 L Continued Medication Management: Start Medication Medications: Current Medications Acetaminophen (Tylenol Tab*) 650 mg PO Q4H PRN PRN Reason: PAIN; OR TEMP>101 Al Hydrox/Mg Hydrox/Simethicone (Maalox Plus*) 30 ml PO Q4H PRN PRN Reason: INDIGESTION Amlodipine Besylate (Norvasc Tab*) 5 mg PO DAILY [facility] Last Admin: 07/09/18 09:03 Dose: 5 mg Bupropion HCl (Wellbutrin Tab*) 75 mg PO DAILY [facility] Last Admin: 07/09/18 09:03 Dose: 75 mg Hydroxyurea (Hydrea Cap*) 500 mg PO BID [facility] Last Admin: 07/09/18 09:04 Dose: 500 mg Hydroxyzine HCl (Atarax Tab*) 50 mg PO Q4H PRN PRN Reason: ANXIETY Last Admin: 07/09/18 09:11 Dose: 50 mg Losartan Potassium (Cozaar Tab*) 50 mg PO DAILY [facility] Last Admin: 07/09/18 09:04 Dose: 50 mg Melatonin (Melatonin) 3 mg PO BEDTIME PRN PRN Reason: SLEEP Last Admin: 07/08/18 02:30 Dose: 3 mg Mirtazapine (Remeron Tab*) 7.5 mg PO 2200 [facility] Multivitamins/Minerals (Theragran/Minerals Tab*) 1 tab PO DAILY [facility] Last Admin: 07/09/18 09:04 Dose: 1 tab Nadolol (Corgard Tab*) 40 mg PO DAILY [facility] Last Admin: 07/09/18 09:03 Dose: 40 mg Polyethylene Glycol/Electrolytes (Miralax*) 17 gm PO DAILY PRN PRN Reason: CONSTIPATION Last Admin: 07/08/18 18:56 Dose: 17 gm Sodium Chloride (Sodium Chloride Tab*) 1 gm PO TID [facility] Last Admin: 07/09/18 09:04 Dose: 1 gm Terazosin HCl (Hytrin Cap*) 2 mg PO BEDTIME [facility] Last Admin: 07/08/18 20:22 Dose: 2 mg Warfarin Sodium (Coumadin Tab(*)) 5 mg PO DAILY@1700 [facility] Last Admin: 07/08/18 17:52 Dose: 5 mg - Discharge Plan Discharge Plan: Inpatient Hospitalization
--- NOTE | 2018-07-09 13:16 | PN ---
[facility]: Group Therapy Note - Service Type Service Type: 81144 Group Psychotherapy - Cognitive Behavioral Group Therapy ( CBT):Patient was attentive and participatory in CBT programming this morning, and remained in good behavioral control. Patient expressed positive insights regarding relevant treatment interventions and goals.
[2018-07-09] MEDS: Warfarin TAB(*) 5 MG PO SCH (18:43)
[2018-07-09] MEDS: Terazosin CAP* 1 MG PO SCH (21:26)
[2018-07-09] MEDS: Mirtazapine TAB* 15 MG PO SCH (21:27)
[2018-07-09] MEDS: Melatonin 3 MG TAB PO SCH (21:27)
[2018-07-10] MEDS: Sodium Chloride TAB* 1 GM PO SCH ×3 (08:53→21:54)
[2018-07-10] MEDS: buPROPion TAB* 75 MG PO SCH (08:54)
[2018-07-10] MEDS: HydroxyUREA CAP* 500 MG CAP PO SCH ×2 (08:54→21:53)
[2018-07-10] MEDS: Multivitamins/Minerals TAB PO SCH (08:55)
[2018-07-10] MEDS: Losartan TAB* 25 MG PO SCH (08:55)
[2018-07-10] MEDS: Nadolol TAB* 40 MG PO SCH (08:55)
[2018-07-10] MEDS: amLODIPine TAB* 5 MG PO SCH (08:55)
[2018-07-10] MEDS ORDERED: buPROPion TAB* 100 MG PO SCH (09:00)
--- NOTE | 2018-07-10 09:01 | PN ---
Subjective - Subjective Date of Service: 07/10/18 Service Type: [id number] Hosp care 35 min high complexity Subjective: Nursing Report: Patient was visible on unit, no chemical restraints or PRNs. Slept overnight waking up in middle of a dream. He is attending group activities. CC: "I slept well" Patient was seen and evaluated today. He reported getting deep sleep overnight but woke up in panic thinking that he needed to replace his battery on his pacemaker. Patient said I know I am paranoid and can talk myself out of it. The patient reported he feels safe on the unit and is interacting with peers. He reported having an adequate appetite and sleep. The patient reports attending and participating in day groups. Per nursing no behavioral issues or overnight events reported. Patient reported that he is tolerating medications without side effects. He denied auditory and or visual hallucinations. Objective - Appearance Appearance: Healthy Appearing Dysmorphic Features: No Hygiene: Normal Grooming: Fairly Well Kept - Behavior Psychomotor Activities: Normal Exhibits Abnormal Movement: No - Attitude and Relatedness Attitude and Relatedness: Cooperative Eye Contact: Fair - Speech Quality: Unpressured Latencies: Normal Quantity: Appropriate - Mood Patient's Decription of Mood: "Irritable" - Affect Observed Affect: Constricted Affect Consistent with: Euthymia - Thought Process Patient's Thought Process: Coherent Thought Content: Yes Paranoid Ideation, No Passive Wish, No Suicidal Planning, No Homicidal Ideation - Sensorium Experiencing Hallucinations: No, Sensorium is Clear Type of Hallucinations: Visual: No, Auditory: No, Command: No - Level of Consciousness Level of Consciousness: Alert Orientation: Yes Intact, Yes Orientated to Time, Yes Orientated to Place, Yes Orientated to Person - Impulse Control Impulse Control: Tenuous - Insight and Judgement Insight and Judgement: Fair - Group Participation Particating in Group Activities: Yes - Medication Management Medication Management Adherence: Yes Assessment - Assessment Clinical Impression: Assessment: 88 year old male with a history of depression and recent suicide attempt came to the hospital with low sodium and depressive features Plan - Plan Treatment Plan: Name: Isabella REGAN Birthdate: 1930 [id number] Plan #Patient continues to require psychiatric inpatient hospitalization #Medical management per medical team. #Increase wellbutrin 100mg daily #Continue remeron 7.5mg daily #Continue to follow Na levels. #Monitor vital signs #Family meeting on Monday at 1pm #Na level ordered #MMPI Vital Signs Temp Pulse Resp BP Pulse Ox 97.7 F 70 18 147/60 100 07/09/18 15:20 07/09/18 15:20 07/09/18 15:20 07/09/18 15:20 07/09/18 15:20 Sodium 129 mmol/L (135-145) L 07/09/18 07:32 Continued Medication Management: Continue Outpt Medication Medications: Current Medications Acetaminophen (Tylenol Tab*) 650 mg PO Q4H PRN PRN Reason: PAIN; OR TEMP>101 Al Hydrox/Mg Hydrox/Simethicone (Maalox Plus*) 30 ml PO Q4H PRN PRN Reason: INDIGESTION Amlodipine Besylate (Norvasc Tab*) 5 mg PO DAILY [facility] Last Admin: 07/09/18 09:03 Dose: 5 mg Bupropion HCl (Wellbutrin Tab*) 100 mg PO DAILY [facility] Hydroxyurea (Hydrea Cap*) 500 mg PO BID [facility] Last Admin: 07/09/18 21:26 Dose: 500 mg Losartan Potassium (Cozaar Tab*) 50 mg PO DAILY [facility] Last Admin: 07/09/18 09:04 Dose: 50 mg Melatonin (Melatonin) 3 mg PO 2200 [facility] Last Admin: 07/09/18 21:27 Dose: 3 mg Mirtazapine (Remeron Tab*) 7.5 mg PO 2200 [facility] Last Admin: 07/09/18 21:27 Dose: 7.5 mg Multivitamins/Minerals (Theragran/Minerals Tab*) 1 tab PO DAILY [facility] Last Admin: 07/09/18 09:04 Dose: 1 tab Nadolol (Corgard Tab*) 40 mg PO DAILY [facility] Last Admin: 07/09/18 09:03 Dose: 40 mg Polyethylene Glycol/Electrolytes (Miralax*) 17 gm PO DAILY PRN PRN Reason: CONSTIPATION Last Admin: 07/08/18 18:56 Dose: 17 gm Sodium Chloride (Sodium Chloride Tab*) 1 gm PO TID [facility] Last Admin: 07/09/18 21:26 Dose: 1 gm Terazosin HCl (Hytrin Cap*) 2 mg PO BEDTIME [facility] Last Admin: 07/09/18 21:26 Dose: 2 mg Warfarin Sodium (Coumadin Tab(*)) 5 mg PO DAILY@1700 [facility] Last Admin: 07/09/18 18:43 Dose: 5 mg - Discharge Plan Discharge Plan: Inpatient Hospitalization
[2018-07-10] MEDS: Warfarin TAB(*) 5 MG PO SCH (17:27)
[2018-07-10] MEDS: Melatonin 3 MG TAB PO SCH (21:54)
[2018-07-10] MEDS: Terazosin CAP* 1 MG PO SCH (21:54)
[2018-07-10] MEDS: Mirtazapine TAB* 15 MG PO SCH (21:56)
[2018-07-10] MEDS: Polyethylene Glycol 3350* 17 GM PACKET PO PRN (21:58)
[2018-07-11] MEDS ORDERED: buPROPion TAB* 75 MG PO SCH (09:00)
[2018-07-11 09:19] VITALS: BP 148/62
[2018-07-11] MEDS: HydroxyUREA CAP* 500 MG CAP PO SCH ×2 (09:36→21:19)
[2018-07-11] MEDS: amLODIPine TAB* 5 MG PO SCH (09:37)
[2018-07-11] MEDS: Sodium Chloride TAB* 1 GM PO SCH ×3 (09:38→21:17)
[2018-07-11] MEDS: Nadolol TAB* 40 MG PO SCH (09:38)
[2018-07-11] MEDS: Losartan TAB* 25 MG PO SCH (09:38)
[2018-07-11] MEDS: Multivitamins/Minerals TAB PO SCH (09:39)
--- NOTE | 2018-07-11 13:02 | DS ---
Treatment Course & Assessment Clinical Course & Impression: Assessment: 88 year old male with a history of depression and recent suicide attempt came to the hospital with low sodium and depressive features Discharge Planning - Discharge Planning Medications: Current Medications Acetaminophen (Tylenol Tab*) 650 mg PO Q4H PRN PRN Reason: PAIN; OR TEMP>101 Al Hydrox/Mg Hydrox/Simethicone (Maalox Plus*) 30 ml PO Q4H PRN PRN Reason: INDIGESTION Amlodipine Besylate (Norvasc Tab*) 5 mg PO DAILY [facility] Last Admin: 07/11/18 09:37 Dose: 5 mg Bupropion HCl (Wellbutrin Tab*) 75 mg PO DAILY [facility] Last Admin: 07/11/18 09:37 Dose: 75 mg Hydroxyurea (Hydrea Cap*) 500 mg PO BID [facility] Last Admin: 07/11/18 09:36 Dose: 500 mg Losartan Potassium (Cozaar Tab*) 50 mg PO DAILY [facility] Last Admin: 07/11/18 09:38 Dose: 50 mg Melatonin (Melatonin) 3 mg PO 2200 [facility] Last Admin: 07/10/18 21:54 Dose: 3 mg Mirtazapine (Remeron Tab*) 7.5 mg PO 2200 [facility] Last Admin: 07/10/18 21:56 Dose: 7.5 mg Multivitamins/Minerals (Theragran/Minerals Tab*) 1 tab PO DAILY [facility] Last Admin: 07/11/18 09:39 Dose: 1 tab Nadolol (Corgard Tab*) 40 mg PO DAILY [facility] Last Admin: 07/11/18 09:38 Dose: 40 mg Polyethylene Glycol/Electrolytes (Miralax*) 17 gm PO DAILY PRN PRN Reason: CONSTIPATION Last Admin: 07/10/18 21:58 Dose: 17 gm Sodium Chloride (Sodium Chloride Tab*) 1 gm PO TID [facility] Last Admin: 07/11/18 09:38 Dose: 1 gm Terazosin HCl (Hytrin Cap*) 2 mg PO BEDTIME [facility] Last Admin: 07/10/18 21:54 Dose: 2 mg Warfarin Sodium (Coumadin Tab(*)) 5 mg PO DAILY@1700 [facility] Last Admin: 07/10/18 17:27 Dose: 5 mg Discharge Planning: Prescriptions provided for discharge [] Yes [] No Follow up care details as per social work arrangements. Patient response to discharge plan: [] eager for discharge [] agreeable with discharge plan [] ambivalent about discharge [] disagrees with discharge today
--- NOTE | 2018-07-11 15:10 | PN ---
Subjective - Subjective Date of Service: 07/11/18 Service Type: 70203 Hosp care 35 min high complexity Subjective: CC: "I am going to stay here" Patient was happy to have gone outside overnight. He said that he is ready for discharge but after talking to his family that he is not ready for discharge. Family meeting was today and the family is convinced that he has bipolar disorder and would like to start treated with lithium. They were reminded of the MMPI results and the course of illness of bipolar disorder and the risks of treatment with lithium. They were offered other care facility such as a detention facility but were not interested. His family reported that he has too much energy to come home. He denied suicidal ideation intent or plan. t Objective - General Observations Appearance: Neat, Well Groomed Appears Stated Age: Yes Stature: Thin Posture: Slumped Eye Contact: Average Behavior/Activity: WNL Separation from Parent/Guardian: Unremarkable/Age Appropriate - Interaction Observations Attitude Towards Examiner: Cooperative Attitude Towards Parent/Guardian: Positive Interaction Stated Mood: Elevated Affect: Full Speech Pattern/Tone: Clear, Slurred Thought Process: Coherent Perception: WNL Thought Content: WNL Hallucination Type: None Delusion Type: None - Cognitive Function Orientation: A&O x 4 Level of Consciousness: Awake Cognition: WNL Estimated Intelligence: Normal Insight: WNL Judgment Within Normal Limits: Yes Ability to Make Reasonable Decisions: Mildly Impaired - Medication Compliance Cooperative with Inpatient Medication Regimen: Yes - Group Participation Participates in Group Activities: Yes Assessment - Assessment Clinical Impression: 88 year old white male admitted to the [facility] for suicide attempt and was found to have hyponatremia Plan - Plan Treatment Plan: Name: Isabella REGAN Birthdate: 1930 [id number] Plan #Patient continues to require psychiatric Inpatient hospitalization #Staff pass and Q30min observation #Medical management per medical team. #Continue Wellbutrin 100mg daily #Continue Remeron 7.5mg daily #Continue to follow Na levels. #Monitor vital signs #Family meeting on Monday at 1pm #Na level daily until within normal limits #MMPI shows features of depression and anxiety and did not indicate hypomania or edilberto features despite. #Neurology consult was placed with Dr. Mullen for changes in speech and tremor. Patients tremor does not impair daily function. #Medicine consult for complaints of abdominal incision # Patient and his family reminded of transition of care to covering provider beginning tomorrow. Patients family requesting more supportive care facilities- they denied supportive care facilities and [facility] detention facility options. Vital Signs Temp Pulse Resp BP Pulse Ox 97.1 F 70 16 148/62 100 07/11/18 10:58 07/11/18 10:58 07/11/18 11:28 07/11/18 10:58 07/11/18 10:58 Sodium 130 mmol/L (135-145) L 07/10/18 10:01 Continued Medication Management: Continue Outpt Medication Medications: Current Medications Acetaminophen (Tylenol Tab*) 650 mg PO Q4H PRN PRN Reason: PAIN; OR TEMP>101 Al Hydrox/Mg Hydrox/Simethicone (Maalox Plus*) 30 ml PO Q4H PRN PRN Reason: INDIGESTION Amlodipine Besylate (Norvasc Tab*) 5 mg PO DAILY [facility] Last Admin: 07/11/18 09:37 Dose: 5 mg Bupropion HCl (Wellbutrin Tab*) 75 mg PO DAILY [facility] Last Admin: 07/11/18 09:37 Dose: 75 mg Hydroxyurea (Hydrea Cap*) 500 mg PO BID [facility] Last Admin: 07/11/18 09:36 Dose: 500 mg Losartan Potassium (Cozaar Tab*) 50 mg PO DAILY [facility] Last Admin: 07/11/18 09:38 Dose: 50 mg Melatonin (Melatonin) 3 mg PO 2200 [facility] Last Admin: 07/10/18 21:54 Dose: 3 mg Mirtazapine (Remeron Tab*) 7.5 mg PO 2200 [facility] Last Admin: 07/10/18 21:56 Dose: 7.5 mg Multivitamins/Minerals (Theragran/Minerals Tab*) 1 tab PO DAILY [facility] Last Admin: 07/11/18 09:39 Dose: 1 tab Nadolol (Corgard Tab*) 40 mg PO DAILY [facility] Last Admin: 07/11/18 09:38 Dose: 40 mg Polyethylene Glycol/Electrolytes (Miralax*) 17 gm PO DAILY PRN PRN Reason: CONSTIPATION Last Admin: 07/10/18 21:58 Dose: 17 gm Sodium Chloride (Sodium Chloride Tab*) 1 gm PO TID [facility] Last Admin: 07/11/18 09:38 Dose: 1 gm Terazosin HCl (Hytrin Cap*) 2 mg PO BEDTIME [facility] Last Admin: 07/10/18 21:54 Dose: 2 mg Warfarin Sodium (Coumadin Tab(*)) 5 mg PO DAILY@1700 [facility] Last Admin: 07/10/18 17:27 Dose: 5 mg - Discharge Plan Discharge Plan: Inpatient Hospitalization
[2018-07-11] MEDS: Warfarin TAB(*) 5 MG PO SCH (16:58)
--- NOTE | 2018-07-11 20:06 | CONS ---
NEUROLOGY CONSULTATION NOTE: DATE OF CONSULT: 07/11/18 CONSULTING PROVIDER: Dr. Alber Tatum. REASON FOR CONSULT: Slurred speech. 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 The patient was recently evaluated by Dr. Baltazar Thomas from Neurology on 06/05/18 for similar presentation. 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 He was off Coumadin for some time. He has a history of atrial fibrillation. He successfully underwent a procedure. However, before discharge, the patient developed some scatomas, headaches, and difficulty with speech. He was having trouble getting words out. His symptoms lasted 20 to 30 minutes. He was evaluated by Dr. Baltazar Thomas who diagnosed him with possible TIA versus complicated migraine since the patient does have history of migraines in the past. However, in light of his history of atrial fibrillation and he was off Coumadin, again he could not completely ruled out stroke. The patient underwent a CT head and a CTA head and neck, which showed no evidence of intracranial abnormality or intra/extracranial stenosis. I personally reviewed both imaging. The patient was able to go home. He did well for a few weeks until he developed suicide ideation and was admitted to the inpatient psychiatric unit. Since being hospitalized, the patient was put on Remeron, Wellbutrin for major depression and insomnia. The patient complained of feeling down and suicidal after he developed the cardiac issues. He stated that he developed a hematoma around the heart, which disappointed him because he was no longer able to work-out. His pleasure for exercise significantly diminished. He has increasing constipation. All these medical complaints caused him to become psychiatrically imbalanced. The patient today complains that he has some tremors in the upper extremity mostly when he is nervous and anxious. He also complained of feeling that his speech does wax and wane and he finds himself searching for words. He is on Coumadin with a therapeutic INR of 2.33 on 07/06/18. I personally spent 20 minutes on the phone with Mrs. Watson who asked me if I knew what was going on in regards to the patient's slurring of words. She is concerned about his overall condition and stated that we need further investigate for possible stroke or TIAs. I answered all her questions to the best of my ability. His spouse informed me today that he has always had two different ways of talking. 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 PAST MEDICAL HISTORY: As noted in HPI. PAST SURGICAL HISTORY: Pacemaker placement and lead revision. MEDICATIONS: 1. Acetaminophen 650 p.o. every 4 hours. 2. Maalox Plus. 3. Hydroxyzine 50 mg daily. 4. Melatonin 3 mg p.o. at bedtime. 5. Terazosin 2 mg p.o. at bedtime. 6. Quetiapine 25 mg p.o. at bedtime. 7. Nadolol 40 mg p.o. daily. 8. Losartan 50 mg p.o. daily. 9. Paroxetine 10 mg p.o. daily. 10. Amlodipine 5 mg p.o. daily. 11. Sodium tablets. 12. Bupropion 75 mg p.o. daily. 13. Warfarin 5 mg p.o. daily. 14. Mirtazapine 7.5 mg daily. ALLERGIES: CAT DANDER, SOTALOL and RADHA INHIBITOR. FAMILY HISTORY: Negative for stroke or seizures. REVIEW OF SYSTEMS: A 14-point review of systems was obtained and otherwise negative, except for what was mentioned in the HPI. PHYSICAL EXAM: Vitals: Temperature of 97.1, pulse rate of 70, respiratory rate of 16, oxygen saturation of 100, blood pressure of 148/62. General: Well- nourished, well-developed man in no acute distress, alert, cooperative. Head: Normocephalic without obvious abnormality. Eyes: Conjunctivae/corneae are clear. Neck is supple and symmetrical. No carotid bruits. Lungs are clear to auscultation. Extremities: Normal range of motion with no cyanosis. Skin: No skin lesions or lacerations. Psych: Flat affect and slightly depressed mood. He has pressured speech. Mental Status: Awake, alert, and oriented to person, place, time, and general circumstances. He does have some hesitant and pressured speech, but no dysarthria or aphasia. Cranial Nerves: Cesar cognitive assessment was completed today and he scored 25/30 with following deficits and inability to copy the cube, cannot complete the puzzle and was able to only recall 2/5 objects after a total of 90 seconds. Otherwise, cranial nerves normal confrontation testing bilaterally. Pupils are mild range and reactive to light. Normal consensual response. Sensation is intact on the forehead, cheeks, and jaw region bilaterally. There is no facial droop. He is able to hear throughout the history process. Tongue is symmetrical and midline with no atrophy or fasciculation. Motor Examination: No abnormal movements or pronator drift. Normal bulk and tone throughout. No fasciculation. Motor strength is 5/5 throughout. Reflexes: Right/left, brachioradialis, biceps, triceps, patella, ankle are 2/2 bilaterally; plantar flexor/flex. Sensation is intact to light touch and pin throughout. Coordination: Normal [id number] and rapid alternating movement. Gait and station narrow based, normal stance. Most recent labs: TSH .79. 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 I do not suspect that he has transient ischemic attacks. His speech abnormalities was worse when he feels anxious, questioned, or when interrupted while talking. He has no facial weakness or motor symptoms to suggest a transient ischemic attack or stroke. I personally contacted Mrs. Watson and reassured her. I also encouraged her to share this information with her family for whom she would like me to speak with. I informed her that her son can contact the hospital and I would be more than happy to answer any of his questions. I do notice that the patient does have some mild memory impairment which the family has also noticed over the last 8 weeks. He most likely has mild cognitive impairment; however, pseudodementia in the setting of depression cannot be entirely excluded. Time will tell to assess if the patient gets better after he is treated for his depression or if it progresses, consistent with mild cognitive impairment. I do not recommend any further testing or evaluation other than obtaining a vitamin B12 level and making sure that it is over 400. I do not think we need an EEG given the suspicion for seizure is extremely low. I did educate and industrial relations counselor and Mrs. Watson regarding the current environmental situation where he really should not be in an inpatient psychiatric unit if he does not have any active acute psychiatric conditions. The patient would most likely be more comfortable and suited at home where he would have time to hopefully recover rather than being around other ill patients with underlying psychiatric conditions. Mrs. Watson stated that she would discuss this further with her sons and see if the patient would agree to go home the next few days. I will sign off but please note that we're available for any questions. TIME SPENT: I spent a total of 70 minutes, of which more than 50% was spent interviewing the patient, examining the patient, education, counseling, and discussing the treatment plan with the patient and family. [id number]/[facility] #: [id number] [facility]
[2018-07-11] MEDS: Mirtazapine TAB* 15 MG PO SCH (21:17)
[2018-07-11] MEDS: Melatonin 3 MG TAB PO SCH (21:17)
[2018-07-11] MEDS: Terazosin CAP* 1 MG PO SCH (21:18)
--- NOTE | 2018-07-11 23:40 | PN ---
Hospitalist Progress Note Date of Service: 07/11/18 Patient seen and evaluated in the [facility] for hyponatremia and c/o right inguinal hernia. Patient reports that he is feeling well. No complaints at this time. States that he has pain in his right groin intermittently when his "pops out". reports that he is able to reduce the hernia on his own. denies black or tarry stools , denies abd pain , n/v/d. dneies chest pain or shortness of breath. denies weakness or dizziness. Patient does have a small right inguinal hernia that is currently reduced and not causing any pain. hernia is soft and non- tender. abdomen is soft and non- tender BS are present x 4. Lung sound clear, heart regular rate At this time I would recommend that the patient follow up with surgery as an outpatient for further management of his right inguinal hernia. At the time of evaluation the pain hernia is reduced. If he develops persistent pain or is unable to reduce the hernia i would recommend that you contact surgery for further management. Hyponatremia - I would continue with sodium tablets as currently prescribed At this time will sign off on this case. If there is further medical concerns don't hesitate to contact our service for evaluation. Thank you for allowing us to participate in the care of Mr. Watson
[2018-07-12 06:53] LABS: Sodium 134 mmol/L (135-145)
[2018-07-12] MEDS: HydroxyUREA CAP* 500 MG CAP PO SCH (09:00)
[2018-07-12] MEDS: amLODIPine TAB* 5 MG PO SCH (09:00)
[2018-07-12] MEDS: Sodium Chloride TAB* 1 GM PO SCH (09:01)
[2018-07-12] MEDS: Nadolol TAB* 40 MG PO SCH (09:01)
[2018-07-12] MEDS: Multivitamins/Minerals TAB PO SCH (09:01)
[2018-07-12] MEDS: Losartan TAB* 25 MG PO SCH (09:01)
--- NOTE | 2018-07-12 11:05 | DCNOTE ---
Subjective - Subjective Service Types: 96913 Hosp DC Day Mgmt simple under 30 min Discharge Date: 07/12/18 Subjective: Mr. Watson is in good spirits. "I was able to do the yoga and stretching. This is exercise that I can handle with the pacemaker." He denies anxiety or SI and feels ready for discharge. DC Assessment - Assessment Clinical Impression: 88 year old white male admitted to the [facility] for suicide attempt and was found to have hyponatremia Merits Inpatient Hospitalization: No Clear for Discharge: Adequate Clinical Respons, Acceptable Safety Profile, Low Utility of Inpt Care Discharge Planning - Discharge Planning Discharge Plan: Outpatient Follow Up Recommendations for Continuing Care: Medication Management - Discharge to home. Medications: Current Medications Acetaminophen (Tylenol Tab*) 650 mg PO Q4H PRN PRN Reason: PAIN; OR TEMP>101 Al Hydrox/Mg Hydrox/Simethicone (Maalox Plus*) 30 ml PO Q4H PRN PRN Reason: INDIGESTION Amlodipine Besylate (Norvasc Tab*) 5 mg PO DAILY [facility] Last Admin: 07/12/18 09:00 Dose: 5 mg Hydroxyurea (Hydrea Cap*) 500 mg PO BID [facility] Last Admin: 07/12/18 09:00 Dose: 500 mg Losartan Potassium (Cozaar Tab*) 50 mg PO DAILY [facility] Last Admin: 07/12/18 09:01 Dose: 50 mg Melatonin (Melatonin) 3 mg PO 2200 [facility] Last Admin: 07/11/18 21:17 Dose: 3 mg Mirtazapine (Remeron Tab*) 7.5 mg PO 2200 [facility] Last Admin: 07/11/18 21:17 Dose: 7.5 mg Multivitamins/Minerals (Theragran/Minerals Tab*) 1 tab PO DAILY [facility] Last Admin: 07/12/18 09:01 Dose: 1 tab Nadolol (Corgard Tab*) 40 mg PO DAILY [facility] Last Admin: 07/12/18 09:01 Dose: 40 mg Polyethylene Glycol/Electrolytes (Miralax*) 17 gm PO DAILY PRN PRN Reason: CONSTIPATION Last Admin: 07/10/18 21:58 Dose: 17 gm Sodium Chloride (Sodium Chloride Tab*) 1 gm PO TID [facility] Last Admin: 07/12/18 09:01 Dose: 1 gm Terazosin HCl (Hytrin Cap*) 2 mg PO BEDTIME [facility] Last Admin: 07/11/18 21:18 Dose: 2 mg Warfarin Sodium (Coumadin Tab(*)) 5 mg PO DAILY@1700 [facility] Last Admin: 07/11/18 16:58 Dose: 5 mg Discharge Planning: Prescriptions provided for discharge [] Yes [] No Follow up care details as per social work arrangements. Patient response to discharge plan: [] eager for discharge [] agreeable with discharge plan [] ambivalent about discharge [] disagrees with discharge today
--- NOTE | 2018-07-12 14:59 | CONS ---
PSYCHOLOGICAL REPORT DATE OF CONSULTATION: 07/11/2018. PROCEDURE CODE: [id number]. REASON FOR REFERRAL: Mr. Watson, who goes by Charan, was referred for psychological testing secondary to the family's concerns regarding possible bipolar disorder. TEST ADMINISTERED: Charan completed the [place] Multiphasic Personality Inventory-2 (MMPI-2), and was given feedback in individual conversation. He was also seen by this communications writer in the context of cognitive behavioral group psychotherapy on two occasions. 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 He, according to his records, had a hematoma around his heart which had precluded him from his characteristic exercise regime. Charan identifies engaging in his morning exercise group as a very joyful experience which is assuredly a way to improve his affect and help him feel connected to other people in his group. Although he describes himself as a person who does not have close friends, he appreciates the social contact with people in structured situations such as exercise programming or in other volunteer or vocational positions historically. 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 He spoke glowingly of his experience there, feeling he was able to help people and do relevant work which helped to save lives. Currently , Charan is doing very well, presenting with a bright affect and engaging in conversation in spontaneous and coherent fashion. He was able to clarify what had initially thought to have been paranoid mentation while on the unit as he did not understand the staff's routine which includes taking personal items from person's rooms before the evening hours. He felt very offended by this and that someone had been stealing his belongings. This then seemed to escalate into larger and more profound concerns about staff's conduct where he read malicious intent when there was none. He was greatly relieved when this issue was cleared up and staff informed him of unit protocol and routines. Charan participated in CBT programming in insightful and topical fashion. He related to staff and peers in an empathic fashion and was clear and coherent in conversation. He expressed gratitude for his treatment and relief that his symptoms seem to be remitting. TEST RESULTS: Charan gives a moderately distressed profile, having elevated two to three emotional duress scales significantly. His significant finding on clinical scale support concerns regarding major depressive episode characterized by very high scoring on the depression scale, concomitantly with very low scores occurring on the hypomania scale. This is descriptive of people who are endorsing often vegetative symptoms of depression and who may feel low energy and listless at times. He also elevates the psychasthenia scale significantly which is indicative of anxiety as well as the paranoia scale. Concerns regarding paranoia were clarified with Charan who did not understand why his personal belongings kept going missing. IMPRESSIONS/RECOMMENDATIONS: Concerns regarding bipolar condition were not supported either in the testing context or in Charan's clinical presentation while here. His confusion regarding what was initially thought to be paranoid mentation was addressed and cleared up with simple understanding of unit routines. He describes being very grateful for not only this clinical experience, but for his overall life experience and identifies having a wonderful family who remain very supportive. He remains future oriented, describing being anxious to get back home and to his usual routine. 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 Charan impresses as likely candidate to continue to follow through with recommended outpatient treatment and recommendations, as well adhere to prescribed medications. Jason Melo, PhD Clinical Psychologist [id number]/[facility] #: [id number] [place]CED[facility]
--- NOTE | 2018-07-12 15:57 | DCNOTE ---
Subjective - Subjective Service Types: 41411 Hosp DC Day Mgmt simple under 30 min Discharge Date: 07/12/18 Subjective: Amlodipine 5 mg #6 qday was prescribed and called into [facility]. DC Assessment - Assessment Clinical Impression: 88 year old white male admitted to the [facility] for suicide attempt and was found to have hyponatremia Discharge Planning - Discharge Planning Discharge Planning: Prescriptions provided for discharge [] Yes [] No Follow up care details as per social work arrangements. Patient response to discharge plan: [] eager for discharge [] agreeable with discharge plan [] ambivalent about discharge [] disagrees with discharge today
--- NOTE | 2018-07-18 13:53 | DS ---
Subjective - Subjective Service Types: 21463 [facility] Day Mgmt complex over 30 min Discharge Date: 07/12/18 Subjective: Please see discharge note. Justification for admission: Immediate Safety. CC " I tried ending my life" The patient was brought to [facility] by his who witnessed him trying to hang himself with a rope. He reported that since getting his pacemaker a month ago he felt depressed and that he has not been able to enjoy the things he once did. He said " I am not a coward I am not going to kill myself." He denied access to firearms or stockpiles of medications. He denied sleep or appetite issues. The patient denied homicidal ideation intent or plan. The patient denied auditory and/ or visual hallucinations. MDD He reported feeling depressed or having diminished interest in hobbies or interests which were present in the past , for most of the time, lasting more than 2 weeks. He reported feelings of hopelessness or worthless. Reported feeling tired throughout the day. Reported loss of energy or lack of motivation to complete tasks. He reported feeling no purpose in life and felt that he would be better off . Bipolar Denied symptoms of edilberto such as having many ideas at once. Denied increased talkativeness where no one can interrupt. Denied feeling irritable most of the time while having an persistent abundance of energy most of the day without the use of energy drinks, stimulants, or recreational drug use. Denied an increase in intensity in goal directed activities. Denied having the decreased need to sleep for days , having prolonged elevated heighted mood , or feeling on top of the world. Denied impulsive risky sexual encounters. Denied spending money recklessly , going on spending sprees wiping out savings. Denied impulsively traveling out of town or country, having super coulter, and unrealistic wealth or fame. Anxiety Denied having symptoms of anxiety such as having times where heart feels that it is beating out of chest , sweaty palms, or shallow breathing. Denied having uncomfortable or intrusive thoughts. Denied feeling restless, high strung, or worrying too much most of the time. Psychosis Does not endorse hearing things that other people do not hear or seeing things other people do not see. Denied feeling that TV is making references. Denied feeling that people are spying , following , or reading their thoughts. Phobias: Patient denied having excessive fear of a particular thing or situation. Eating disorders: Patient denied having excessive eating habits or feelings of guilt after eating. Denied repeated episodes of self induced vomiting after eating. PTSD Denied flashbacks, nightmares and avoidance of a prior traumatic event. PAST PSYCHIATRIC HISTORY: Prior Diagnosis : Major depressive disorder History of past Psychiatric Hospitalizations: 1 prior psychiatric admission in 1993 in [facility] History of past suicide/homicide attempts : 1 past suicide attempt in 1993 with attempt to hang himself. Denied past homicidal incidents. Outpatient follow-up: No current psychiatric follow up care. Medications: Amitriptyline in 1992 and was discontinued shortly after. Other Past trials of medications include paxil started in 1993 with good clinical response and discontinued a year later. Guardianship: His is his health care proxy FAMILY HISTORY: - Suicide: Denied family history of suicide. - Mental illness: Denied a history of mental health in immediate family members. - Substance abuse: Denied substance abuse among family members. SUBSTANCE ABUSE HISTORY: Denied using alcohol, tobacco, heroin and cocaine other illicit substances. Denied abusing pills not prescribed . Denied past Substance abuse treatment. - EtOH: Denied using recently or in the past. - Tobacco: Denied using recently or in the past. - Cannabis: Denied using recently or in the past. - Heroin: Denied using recently or in the past. - Cocaine: Denied using recently or in the past. 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 Has one son. He is and grew up in [facility] and lived in [place] for some time. He currently lives in [place] with his . PAST MEDICAL HISTORY: A-Fib , current Hyponatremia, s/p pacemaker, essential thrombocythemia, , HTN, BPH - Allergies: RADHA inhibitors, Sotalol and allergic to cats Physical Exam: Please see ED note Mental Status Exam on Admission APPEARANCE : 88 year old male who appears stated age. Patient is not malodourous, and appears to have fair hygiene and grooming. BEHAVIOR: Cooperative , calm EYE CONTACT: Fair PSYCHOMOTOR ACTIVITY: No psychomotor agitation or retardation. MOVEMENTS: No abnormal movements observed. SPEECH : Normal rate, rhythm, volume and tone. MOOD : " Okay" AFFECT : blunted THOUGHT PROCESS: formulated and organized in a logical, linear goal directed manner. THOUGHT CONTENT: no delusions, preoccupations, obsessions, phobias or preoccupations. PERCEPTION: No current auditory or visual hallucinations. Doesnt appear to be responding to internal cues. No evidence of depersonalization , de-realization, or illusions SUICIDALITY Recent Suicide attempt HOMICIDALITY Denied homicidal ideation, intent or plan. Insight/judgment: Fair insight and judgment ORIENTATION: Oriented to self, location, and time. Diagnosis on Admission: Major Depressive Disorder rule out as a cause to another medical condition Diagnosis on Discharge: Major depressive disorder, in partial remission. Condition at the time of discharge: At the time of discharge patient showed improvement of sleep and appetite. The patient was not a danger to self or others. The patient denied suicidal ideations , intent or plans. The patient denied homicidal targets, ideations, intents or plans. This patient participated in psychosocial rehabilitation and gained some insight into problems. The patient gained insight into mental illness, triggers, and treatment. The patient took medication as prescribed. The patient denied side effects of medication and objective signs of side effects were not evident. Therapy Resources were offered to the patient. Patient was given a supply of prescriptions at the time of discharge. The patient plans to attend follow up care with the follow up arrangements that were discussed and put in place. Patient was asked to keep appointments as scheduled, take medication as prescribed, have routine follow up care with their primary care physician and refrain from any use of alcohol or drugs. Treatment Course & Assessment Clinical Course & Impression: 88 year old white male admitted to the [facility] for suicide attempt and was found to have hyponatremia. 88 year old white male with history of a recent suicide attempt. He would found to have hyponatremia (118) and was treated on the medical unit and returned the [facility]. Last Na level was 130. Neurology was consulted and cleared him of neurological pathology. Medicine team evaluated abdominal incision. Family meeting took place on 07/11/18 and his family the next day thought about it and called and requested that he come home. Covering provider discharged him home. When patient was transfered back to the [facility] he was given seroquel one time over the the weekend. Patient was discontinued from seroquel and paxil. Labs ordered included CBC, CMP, UDS, TSH, HBA1c, TSH, Toxicology screen, Urine analysis, and lipid profile. Labs were reviewed and patient was not stable for psychiatric treatment on the B[facility] and required to be transferred to medical unit. Vital signs and labs were monitored during the course of admission.MMPI was ordered and indicated features of depression and anxiety. Patients family had concern about possible bipolar diagnosis but patients course of illness was not congruent with diagnosis. The patient was admitted to the adult behavioral unit and placed on 15 minute check for safety. At a later time the patient was on Q30 minute observation and staff pass privileges. With those limits being extended , there were no occurrence of behavioral incidents. The patient did well on the unit and went to groups. Interacted with peers had adequate sleep and regular appetite. Tolerated medication changes without side effects. Group therapy and services were offered. The risks, benefits, and alternative treatment options were discussed as well as of the risks of refusing treatment. Treatment associated risks discussed . After this discussion and an acknowledgement of this understanding , made the decision for the current type of treatment. Follow up care appointments were put in place for follow up care within 7 days of discharge. Patient presents with a broader range of affect, and the absence of depressed mood, delusions, perceptual disturbances and or suicidal ideation. Overall, the patient responded well to inpatient treatment as evidenced by their report of strengthening of coping mechanisms , reduced distress, and more positive outlook on circumstances. Of note there was an improvement psychotic symptoms and absence of suicidal ideation. The patient expressed readiness for discharge home. Safety precautions were put in place which included involving family to closely monitor for changes in mental state. In addition, implementing follow up care removing/securing firearms, weapons and stockpile of medications. Family and patient instructed to immediately call 911 should any safety concerns arise. AIMS was performed and insignificant for involuntary movement disorders. The patient was advised of the 24 hour / 7 days a week availability of the emergency room and to call 911 in the event of becoming suicidal and/ or homicidal and for all other emergencies. The patient was informed of the contact information for [facility], [facility] Crisis [facility], National Suicide Prevention Lifeline, [facility], Alcoholics Anonymous, and [facility]. Medications started included wellbutrin and remeron. Before discharge Discontinued wellbutrin as it may be contributing to anxiety. Patient was informed of transition of covering provider and a sign out was generated. Paxil was discontinued due to hyponatremia. Consults included to medicine to treat patients low sodium and address other medical issues. Neurology was consulted to address speech changes and tremor and history of possible TIA. Clearance was provided that no further work up was required. Improvements in patient from the time of admission include: Improved affect, sleep and decrease in anxiety. No longer suicidal and no longer having feelings of hopelessness. Risk factors: Age, past suicide attempts history of mental illness. Protective factors: , Has children. Has strong support system. No history of service, currently no feelings of hopelessness, not in a occupation of social isolation, no family history of suicide, doesnt have access to firearms. Doesn t have command hallucinations and or psychotic features at this time. No history of substance abuse. No history of alcohol abuse. No changes in relationship status, housing, job, or school etc.. Currently future orientated. Patient engaged in treatment and compliant with medication. Mental Status Exam on Discharge please see discharge note Merits Inpatient Hospitalization: No Clear for Discharge: Adequate Clinical Respons Discharge Planning - Discharge Planning Discharge Plan: Outpatient Follow Up [facility] Recommendations for Continuing Care: Medication Management Discharge Planning: Prescriptions provided for discharge [x] Yes [] No Follow up care details as per social work arrangements. Patient response to discharge plan: [] eager for discharge [x] agreeable with discharge plan [] ambivalent about discharge [] disagrees with discharge today
== END 2018-07-12 12:50 | disposition home or self-care (01) | DRG 885 ==
LOC: BSU 19:30
PROVIDERS: ADMIT Psychiatry & Neurology Psychiatry; ATTEND Psychiatry & Neurology Psychiatry
DX: F33.2 Major depressive disorder, recurrent severe without psychotic features (principal); R45.851 Suicidal ideations; E22.2 Syndrome of inappropriate secretion of antidiuretic hormone; K40.90 Unilateral inguinal hernia, without obstruction or gangrene, not specified as recurrent; I48.91 Unspecified atrial fibrillation; Z95.0 Presence of cardiac pacemaker; Z79.01 Long term (current) use of anticoagulants; Z79.1 Long term (current) use of non-steroidal anti-inflammatories (NSAID); Z79.899 Other long term (current) drug therapy; Z88.8 Allergy status to other drugs, medicaments and biological substances; Z91.048 Other nonmedicinal substance allergy status; G31.84 Mild cognitive impairment of uncertain or unknown etiology; T43.505A Adverse effect of unspecified antipsychotics and neuroleptics, initial encounter; E86.1 Hypovolemia; Y92.230 Patient room in hospital as the place of occurrence of the external cause; D47.3 Essential (hemorrhagic) thrombocythemia; I35.0 Nonrheumatic aortic (valve) stenosis; I10 Essential (primary) hypertension; N40.0 Benign prostatic hyperplasia without lower urinary tract symptoms
CPT/HCPCS: 36415; 80048; 80053; 80061; 80307; 80320; 80329; 81003; 81015; 82533; 82570; 82607; 83036; 83930; 83935; 84133; 84300; 84443; 84550; 85025; 85610; 87086; 90853; 93005; 93306; 96130; 99222; 99233; 99238; 99284; A9270-GY; G0480

== ENCOUNTER 2019-01-12 19:41 | Emergency (ER) | payer MEDICARE, OTHER ==
[2019-01-12 19:51] VITALS: BP 151/79
--- OUTSIDE RECORDS SUMMARY | 2019-01-12 20:12 | XMS REPORT | Summary of Care ---
:1930 Author Organization [facility] Address [address] [place] [address] Care Team Providers Name Role Phone Bigg Gallardo MD Primary Care Provider Earl Whitt MD Unavailable Joyce Carrero MD Unavailable Josué Be Md, MD Unavailable Reason for Visit Reason Comments Cellulitis possible cellulitis RLE. redness noted two days ago Encounter Details Date Type Department Care Team Description 12/07/2018 Office Visit [facility] [address], Cellulitis of right lower extremity (Primary Dx); Practice [facility] Long-Term (Current) Use of Anticoagulants [address] [place] [address] [place] [address] [phone] Allergies Active Allergy Reactions Severity Noted Date Comments Yogi Inhibitors Respiratory Reaction 05/07/2007 cough Cat Respiratory Reaction 05/07/2007 Sotalol Other 05/07/2007 documented as of this encounter (statuses as of 12/07/2018) Medications Medication Sig Dispensed Refills Start Date End Date Status Cholecalciferol Take by 0 Active (VITAMIN D) 1000 mouth. UNITS Oral Cap hydroxyurea (HYDREA) TAKE 1 CAPSULE 180 Cap 0 06/29/2018 Active 500 MG Oral Cap BY MOUTH TWICE DAILY Melatonin 3 MG Oral Take 3 mg by 0 Active Tab mouth. Multiple Vitamin Take by 0 Active (THERAGRAN PO) mouth. Polyethylene Glycol Take by 0 Active 3350 (MIRALAX PO) mouth. mirtazapine (REMERON) Take 1 Tab by 30 Tab 0 07/17/2018 Active 15 MG Oral Tab mouth EVERY BEDTIME. warfarin (COUMADIN) 5 Take 1-1.5 90 Tab 3 08/24/2018 Active MG Oral Tabs by mouth TabIndications: DAILY. As Persistent atrial directed which fibrillation (HCC) is 7.5mg Mon/Wed/Fri. 5mg remaining days of week terazosin (HYTRIN) 2 Take 1 Cap by 90 Cap 0 09/14/2018 Active MG Oral Cap mouth DAILY. losartan (COZAAR) 50 TAKE 1 TABLET 90 Tab 1 10/22/2018 Active MG Oral Tab BY MOUTH DAILY nadolol (CORGARD) 40 TAKE 1 TABLET 90 Tab 1 11/12/2018 Active MG Oral Tab BY MOUTH DAILY warfarin (COUMADIN) 5 Take 1-1.5 110 Tab 3 11/27/2018 Active MG Oral Tabs by mouth TabIndications: DAILY. As Persistent atrial directed which fibrillation (HCC) is 7.5mg Mon/Wed/Fri. and 5mg remaining days of week cefuroxime (CEFTIN) Take 1 Tab by 20 Tab 0 12/07/2018 Active 250 MG Oral mouth TWICE 9 TabIndications: DAILY for 10 Cellulitis of right days. lower extremity sodium chloride 1 g Take 1 g by 0 Discontinued Oral Tab mouth THREE 9 TIMES DAILY. oxybutynin (DITROPAN) TAKE 1 TABLET 270 Tab 0 08/22/2018 Discontinued 5 MG Oral Tab BY MOUTH 3 9 TIMES DAILY documented as of this encounter (statuses as of 12/07/2018) Active Problems Problem Noted Date Advance directive discussed with patient 07/28/2018 Persistent atrial fibrillation 02/07/2017 BMI 29.0-29.9,adult 10/19/2010 Overview: This patient's BMI has been calculated and is above average, and BMI management plan is completed. General patient education discussion including: weight loss link to reduction of risk factors for car diac and other diseases, importance of long-term maintenance treatment in weight loss and is managed by diet and exercise. SSS (sick sinus syndrome) 06/30/2010 Other left bundle branch block 06/30/2010 Nonischemic cardiomyopathy 06/30/2010 Mitral regurgitation 06/30/2010 Other and unspecified hyperlipidemia 08/13/2009 Cardiac pacemaker in situ 04/02/2008 Mobitz (type) II atrioventricular block 05/23/2007 Long-Term (Current) Use of Anticoagulants 05/08/2007 Overview: Managed by: [facility] Referring Provider: Saurav Indication: afib, persistent Target Range: 2.0-3.0 Duration: Indefinite Additional factors influencing anticoagulation: CHADS2 score of 2 for age > 75 and congestive heart failure [id number] score of 3 for age > 75, congestive heart failure Gemfibrozil increases warfarin effect Updated Referral: 10/17/13, 12/2014, 02/2016, 01/2017, 01/18/18 Updated ACS Orders: 10/17/13, 12/2014, 05/02/16, 02/07/17, 02/19/18 Myeloproliferative disorder 05/07/2007 Benign prostatic hyperplasia 05/07/2007 Erectile dysfunction 05/07/2007 Atrial fibrillation 09/29/2006 Overview: Updated referral 06/2011. Dx: A fib. Therapy Duration: lifetime. Range: 2-3. Provider: Bigg Gallardo MD. Updated referral Updated orders documented as of this encounter (statuses as of 12/07/2018) Resolved Problems Problem Noted Date Resolved Date Atrial fibrillation, unspecified type 03/14/2016 01/22/2017 Atrial fibrillation, unspecified 12/31/2014 01/22/2017 Encounter for therapeutic drug monitoring 12/21/2009 06/08/2010 Essential thrombocythemia 05/07/2007 07/02/2013 CHF (congestive heart failure) 05/07/2007 08/13/2009 Overview: History of congestive heart failure Elevated LDH 05/07/2007 08/13/2009 Overview: Elevated Lipids Bipolar I disorder, most recent episode (or current) depressed, 05/07/2007 unspecified documented as of this encounter (statuses as of 12/07/2018) Immunizations Name Administration Dates Next Due Influenza Vaccine High Dose 02/12/2018, 01/10/2018, 01/20/2017 Influenza Virus Vaccine - Whole 04/12/1994 PNEUMOCOCCAL POLYSACCHARIDE VACCINE 07/18/2006 Pneumococcal Conjugate Vaccine 12/09/2016 TDAP Vaccine 04/11/2017 TETANUS & DIPHTHERIA TOXOID (OVER 7 YRS) 02/23/2004 ZOSTER (ZOSTAVAX) VACCINE 08/16/2010 documented as of this encounter Social History Tobacco Use Types Packs/Day Years Used Date Never Smoker Smokeless Tobacco: Never Used Alcohol Use Drinks/Week oz/Week Comments Yes 3 Cans of beer 3.0 Sex Assigned at Date Recorded Not on file Job Start Date Occupation Industry Not on file Not on file Not on file Travel History Travel Start Travel End No recent travel history available. documented as of this encounter Last Filed Vital Signs Vital Sign Reading Time Taken Comments Blood Pressure 132/80 12/07/2018 9:17 AM EDT Pulse 72 12/07/2018 9:17 AM EDT Temperature 36.2 12/07/2018 9:17 AM EDT C (97.2 F) Respiratory Rate - - Oxygen Saturation - - Inhaled Oxygen Concentration - - Weight 75.3 kg (166 lb) 12/07/2018 9:17 AM EDT Height 174 cm (5' 8.5") 12/07/2018 9:17 AM EDT Body Mass Index 24.87 12/07/2018 9:17 AM EDT documented in this encounter Patient Instructions Patient InstructionsJodi Sierra FNP - 12/07/2018 9:20 AM EDTElevate legs as much as possible Heat may help Medication as directed Call if symptom persist or worsen documented in this encounter Progress Notes Jodi Sierra FNP - 12/07/2018 9:20 AM EDT PATIENT: Lionel Keith : 1930 DATE OF SERVICE: 12/07/2018 CHIEF COMPLAINT: Chief Complaint Patient presents with Cellulitis possible cellulitis RLE. redness noted two days ago Subjective HISTORY OF PRESENT ILLNESS: Lionel Keith is a 88-y.o. male. HPI Increased redness RLE x 2 days - Hx cellulitis Past Medical History: Diagnosis Date A-fib (HCC) pacer on coumadin Benign prostatic hypertrophy 05/07/2007 Bipolar I disorder, most recent episode (or current) depressed, unspecified 05/07/2007 better ex insomnia too BMI 29.0-29.9,adult 10/19/2010 cardiomyopathy 05/07/2007 History of congestive heart failure ??45% moderate MR Colon polyp adenoma DNR (do not resuscitate) Dysplastic nevus Erectile dysfunction 05/07/2007 Hyperlipidemia triglycerides Mitral regurgitation 06/30/2010 Myeloproliferative disorder (HCC) 05/07/2007 thrombocytosis Nonischemic cardiomyopathy (HCC) 06/30/2010 Other left bundle branch block 06/30/2010 SSS (sick sinus syndrome) (HCC) 06/30/2010 Thyroid cyst 2013 benign to .fu 1 year with us Vitamin D deficiency Family History Problem Relation Age of Onset Cancer Mother breast ca No Known Problems Father Cancer Brother skin ca Diabetes Sister No Known Problems Daughter No Known Problems Daughter Current Outpatient Medications Medication Sig cefuroxime (CEFTIN) 250 MG Oral Tab Take 1 Tab by mouth TWICE DAILY for 10 days. Cholecalciferol (VITAMIN D) 1000 UNITS Oral Cap Take by mouth. hydroxyurea (HYDREA) 500 MG Oral Cap TAKE 1 CAPSULE BY MOUTH TWICE DAILY losartan (COZAAR) 50 MG Oral Tab TAKE 1 TABLET BY MOUTH DAILY Melatonin 3 MG Oral Tab Take 3 mg by mouth. mirtazapine (REMERON) 15 MG Oral Tab Take 1 Tab by mouth EVERY BEDTIME. Multiple Vitamin (THERAGRAN PO) Take by mouth. nadolol (CORGARD) 40 MG Oral Tab TAKE 1 TABLET BY MOUTH DAILY Polyethylene Glycol 3350 (MIRALAX PO) Take by mouth. terazosin (HYTRIN) 2 MG Oral Cap Take 1 Cap by mouth DAILY. warfarin (COUMADIN) 5 MG Oral Tab Take 1-1.5 Tabs by mouth DAILY. As directed which is 7.5mg Mon/Wed/Fri. 5mg remaining days of week warfarin (COUMADIN) 5 MG Oral Tab Take 1-1.5 Tabs by mouth DAILY. As directed which is 7.5mg Mon/Wed/Fri. and 5mg remaining days of week No current facility-administered medications for this visit. Allergies Allergen Reactions Yogi Inhibitors Respiratory Reaction cough Cat Respiratory Reaction Sotalol Other Social History Socioeconomic History Marital status: Spouse name: Not on file Number of children: Not on file Years of education: Not on file Highest education level: Not on file Occupational History Not on file Social Needs Financial resource strain: Not on file Food insecurity: Worry: Not on file Inability: Not on file Transportation needs: Medical: Not on file Non-medical: Not on file Tobacco Use Smoking status: Never Smoker Smokeless tobacco: Never Used Substance and Sexual Activity Alcohol use: Yes Alcohol/week: 3.0 standard drinks Types: 3 Cans of beer per week Drug use: No Sexual activity: Not on file Lifestyle Physical activity: Days per week: Not on file Minutes per session: Not on file Stress: Not on file Relationships Social connections: Talks on phone: Not on file Gets together: Not on file Attends faith service: Not on file Active member of club or organization: Not on file Attends meetings of clubs or organizations: Not on file Relationship status: Not on file Intimate partner violence: Fear of current or ex partner: Not on file Emotionally abused: Not on file Physically abused: Not on file Forced sexual activity: Not on file Other Topics Concern Back Care Not Asked Bike Helmet Not Asked Blood Transfusions Not Asked Caffeine Concern Not Asked Exercise Not Asked Hobby Hazards Not Asked International Travel Not Asked Service Not Asked Occupational Exposure Not Asked Seat Belt Not Asked Self-Exams Not Asked Sleep Concern Not Asked Special Diet Not Asked Stress Concern Not Asked Weight Concern Not Asked Social History Narrative [place] with his . 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 REVIEW OF SYSTEMS: Review of Systems Constitutional: Negative for chills, fever and malaise/fatigue. Respiratory: Negative for shortness of breath. Cardiovascular: Edema lower extremities Musculoskeletal: Positive for myalgias. Negative for falls. Skin: Negative for itching. Neurological: Negative for tingling and weakness. Objective PHYSICAL EXAM: VITALS: BP 132/80 | Pulse 72 | Temp 97.2 F (36.2 C) | Ht 5' 8.5" ( 1.74 m) | Wt 166 lb (75.3 kg) | BMI 24.87 kg/m Body mass index is 24.87 kg/m. Physical Exam Constitutional: He is oriented to person, place, and time. Vital signs are normal. He appears well-developed and well-nourished. HENT: Head: Normocephalic and atraumatic. Eyes: Pupils are equal, round, and reactive to light. EOM are normal. Cardiovascular: Pulses: Dorsalis pedis pulses are 2+ on the right side, and 2+ on the left side. Posterior tibial pulses are 2+ on the right side, and 2+ on the left side. Bilateral 2+ edema LE Pulmonary/Chest: Effort normal. He has no wheezes. Neurological: He is alert and oriented to person, place, and time. No cranial nerve deficit or sensory deficit. Gait normal. Skin: Skin is warm and dry. Capillary refill takes 2 to 3 seconds. There is erythema. Vitals reviewed. ASSESSMENT / IMPRESSION: ICD-9-CM ICD-10-CM 1. Cellulitis of right lower extremity 682.6 L03.115 cefuroxime (CEFTIN) 250 MG Oral Tab 2. Long-Term (Current) Use of Anticoagulants V58.61 Z79.01 Plan Elevate legs as much as possible Heat may help Medication as directed Call if symptom persist or worsen Author: KATALINA Lafleur 12/07/2018 09:53 documented in this encounter Plan of Treatment Date Type Specialty Care Team Description 12/28/2018 AntiCoag Anticoagulation Health Maintenance Due Date Last Done Comments ZOSTER IMMUNIZATION SERIES 10/11/2010 08/16/2010 (2 of 3) MEDICARE ANNUAL WELLNESS 12/09/2017 12/09/2016, 11/24/2015, VISIT 11/24/2015, Additional history exists INFLUENZA VACCINE (#1) 2018 02/12/2018, 01/10/2018, 01/20/2017 FALL RISK ASSESSMENT 02/02/2019 02/02/2018, 02/02/2018 DEPRESSION SCREENING 07/28/2019 07/27/2018, 07/27/2018 LIPID DISORDER SCREENING 07/28/2023 07/27/2018, 02/02/2018, 11/11/2014, Additional history exists PNEUMOCOCCAL 65+YRS Completed 12/09/2016, 07/18/2006 HPV IMMUNIZATION SERIES Aged Out No longer eligible based on patient's age to complete this topic MENINGOCOCCAL VACCINE IMM Aged Out No longer eligible based on patient's age to complete this topic documented as of this encounter Goals Goal Patient Goal Associated Recent Patient-Stated? Author Type Problems Progress Depression Depression 11 No [place]eter, screen (PHQ-9) (07/27/2018 Yenni, total score < 5 11:40 AM EDT) RN Note: This is an individualized treatment (depression) goal for Lionel Figueroa: Displayed above is your goal for a depression screening (PHQ-9) score that would indicate good control of your depression. Keep a regular sleep schedule Lifestyle No Yenni Wallace, RN Note: This is an individualized lifestyle goal for Lionel Sagar: Please maintain a regular sleep schedule. This may help with some symptoms of depression. Take all prescribed medications as Self-management No Yenni Wallace, RN directed Note: This is an individualized self-management goal for Lionel Sagar: Please take all prescribed medications as directed. 1. Do not skip doses. If you cannot afford your medications, talk with your doctor. 2. Use a pill reminder system such as a pill box if needed. Your pharmacist can help you with this. 3. Contact your Pharmacy 5 days before your medication runs out. If you cannot take your medications for any reasons, talk with your doctor. 4. Please bring all of your medication bottles and inhalers (or a list of all your medications/inhalers) with you to every visit. Potential barriers to meeting all of your care plan goals will continue to be addressed on an ongoing basis. documented as of this encounter Implants Implanted Type Area Greenhouse Worker Device Shelf Model / Identifier Expiration Date Serial / Lot Accent Single Chamber [id number] - [id number] Chest [employer], 2011 [id number] / Implanted: Qty: 1 on 07/01/2010 at [facility]. [id number] / Tendril Lead 8tc/58cm - [id number] Chest [employer], 04/23/2013 [id number] / Implanted: Qty: 1 on 07/01/2010 at [facility]. [id number] / documented as of this encounter Results Not on filedocumented in this encounter Visit Diagnoses Diagnosis Cellulitis of right lower extremity - Primary Cellulitis and abscess of leg, except foot Long-Term (Current) Use of Anticoagulants Long-term (current) use of anticoagulants documented in this encounter Insurance Payer Benefit Plan / Subscriber ID Effective Dates Phone Address Type Group MEDICARE MEDICARE PART A xxxxxxxxxxx 1997-Present Medicare & B A[employer] COMMERCIAL AETNA xxxxxxxxxx 2007-Present A[employer] Guarantor Name Account Type Relation to Date of Phone Billing Patient Address Sagar, Personal/Family 1930 [id number] (Home) [address] [place], [place] (Work) [address] documented as of this encounter
--- OUTSIDE RECORDS SUMMARY | 2019-01-12 20:12 | XMS REPORT | Summary of Care ---
:1930 Author Organization [facility] Address [address] [place] [address] Care Team Providers Name Role Phone Bigg Gallardo MD Primary Care Provider Earl Whitt MD Unavailable Joyce Carrero MD Unavailable Josué Be Md, MD Unavailable Reason for Visit Reason Comments Follow Up pt presents for follow up with cellulitis. Was seen a few weeks ago and placed on doxy, seemed to clear up and then came back. Was placed on ceftin, made pt very dizzy. Other pt wondering if can go back on oxybutynin for urine control, also wondering if needs labs to check sodium level. Encounter Details Date Type Department Care Team Description 12/25/2018 Office Visit [facility] Bigg Gallardo MD Cellulitis of right lower extremity (Primary Dx); Practice [address] Peripheral edema; [address] [place] [address] [place] [address] [phone] Allergies Active Allergy Reactions Severity Noted Date Comments Yogi Inhibitors Respiratory Reaction 05/07/2007 cough Cat Respiratory Reaction 05/07/2007 Cefuroxime GYN PHYSICIAN Reaction High 12/25/2018 dizziness Sotalol Other 05/07/2007 documented as of this encounter (statuses as of 12/25/2018) Medications Medication Sig Dispensed Refills Start Date End Date Status Cholecalciferol Take by mouth. 0 Active (VITAMIN D) 1000 UNITS Oral Cap hydroxyurea (HYDREA) TAKE 1 CAPSULE BY 180 Cap 0 06/29/2018 Active 500 MG Oral Cap MOUTH TWICE DAILY Melatonin 3 MG Oral Tab Take 3 mg by 0 Active mouth. Multiple Vitamin Take by mouth. 0 Active (THERAGRAN PO) Polyethylene Glycol Take by mouth. 0 Active 3350 (MIRALAX PO) mirtazapine (REMERON) Take 1 Tab by 30 Tab 0 07/17/2018 Active 15 MG Oral Tab mouth EVERY BEDTIME. warfarin (COUMADIN) 5 Take 1-1.5 Tabs 90 Tab 3 08/24/2018 Active MG Oral TabIndications: by mouth DAILY. Persistent atrial As directed which fibrillation (HCC) is 7.5mg Mon/Mon/Mon. 5mg remaining days of week terazosin (HYTRIN) 2 MG Take 1 Cap by 90 Cap 0 09/14/2018 Active Oral Cap mouth DAILY. losartan (COZAAR) 50 MG TAKE 1 TABLET BY 90 Tab 1 10/22/2018 Active Oral Tab MOUTH DAILY nadolol (CORGARD) 40 MG TAKE 1 TABLET BY 90 Tab 1 11/12/2018 Active Oral Tab MOUTH DAILY doxycycline Take 100 mg by 20 Tab 1 12/25/2018 Active (VIBRAMYCIN) 100 MG mouth TWICE Oral Tab DAILY. documented as of this encounter (statuses as of 12/25/2018) Active Problems Problem Noted Date Advance directive [...] Use of Anticoagulants 05/08/2007 Overview: Managed by: [facility] Referring Provider: Saurav Indication: afib, persistent Target Range: 2.0-3.0 Duration: Indefinite Additional factors influencing anticoagulation: CHADS2 score of 2 for age > 75 and congestive heart failure [id number] score of 3 for age > 75, [...] as of this encounter (statuses as of 12/25/2018) Resolved Problems Problem Noted Date Resolved Date [...] as of this encounter (statuses as of 12/25/2018) Immunizations Name Administration Dates Next Due Influenza [...] Sign Reading Time Taken Comments Blood Pressure 104/62 12/25/2018 2:00 PM EDT Pulse 69 12/25/2018 2:00 PM EDT Temperature 36.5 12/25/2018 2:00 PM EDT C (97.7 F) Respiratory Rate - - Oxygen Saturation 99% 12/25/2018 2:00 PM EDT Inhaled Oxygen Concentration - - Weight 76.4 kg (168 lb 6.4 oz) 12/25/2018 2:00 PM EDT Height 174 cm (5' 8.5") 12/25/2018 2:00 PM EDT Body Mass Index 25.23 12/25/2018 2:00 PM EDT documented in this encounter Progress Notes Bigg Gallardo MD - 12/25/2018 2:00 PM EDT PATIENT: Lionel Keith : 1930 DATE OF SERVICE: 12/25/2018 CHIEF COMPLAINT: Chief Complaint Patient presents with Follow Up pt presents for follow up with cellulitis. Was seen a few weeks ago and placed on doxy, seemed to clear up and then came back. Was placed on ceftin, made pt very dizzy. Other pt wondering if can go back on oxybutynin for urine control, also wondering if needs labs to checksodium level. Subjective HISTORY OF PRESENT ILLNESS: Lionel Keith is a 88-y.o. male. Saw [facility] and diagnosis with cellulitis in right leg several months ago. Put on doxy and got better It came back few weeks ago and tried ceftin but made dizzy so went back on doxy and got a lot betterbut not completely and now is back and on the left leg too. No fever, pain, no injury Past Medical History: Diagnosis Date A-fib (HCC) [...] Problems Daughter Current Outpatient Medications Medication Sig Cholecalciferol (VITAMIN D) 1000 UNITS Oral Cap [...] mouth DAILY. As directed which is 7.5mg Mon/Mon/Mon. 5mg remaining days of week No current facility-administered medications for this visit. Allergies Allergen Reactions Ceftin [Cefuroxime] GYN PHYSICIAN Reaction dizziness Yogi Inhibitors Respiratory Reaction cough Cat Respiratory [...] file Gets together: Not on file Attends anabaptism service: Not on file Active member of [...] downtown with his . Attends lectures at [employer] and enjoys to exercise. REVIEW OF SYSTEMS: ROS he has Rx for ditropan but not try it yet for his incontinence Objective PHYSICAL EXAM: VITALS: BP 104/62 (BP Location: Left arm, Patient Position: Sitting) | Pulse 69 | Temp 97.7 F(36.5 C) | Ht 5' 8.5" (1.74 m) | Wt 168 lb 6.4 oz ( 76.4 kg) | SpO2 99% | BMI 25.23 kg/mBody mass index is 25.23 kg/m. Physical Exam Constitutional: No distress. Cardiovascular: Normal rate. Pulmonary/Chest: Effort normal. No respiratory distress. Musculoskeletal: He exhibits edema (both LE ). Skin: The left andres now has a 2.5 inch red blanchable rash with some central clearing The right shows evidence of prior cellulitis as skin peeled and few smaller red dots ASSESSMENT / IMPRESSION: ICD-9-CM ICD-10-CM 1. Cellulitis of right lower extremity im not entirely convinced of the diagnosis but I dont have another explanation I do feel the edema is not helping it but he cant really risk the diuretic as his Na goes low Plan will be to try 3 weeks doxy and support hose to cut down edema 682.6 L03.115 CBC WITH DIFFERENTIAL CELLAVISION RBC MORPHOLOGY CELLAVISION RBC MORPHOLOGY 2. Peripheral edema 782.3 R60.9 3. Hyponatremia 276.1 E87.1 BASIC METABOLIC PANEL Plan Will get flu shot [place] Author: Bigg Gallardo MD 12/25/2018 14:19 documented in this encounter Plan of Treatment Date Type Specialty Care Team Description 01/15/2019 AntiCoag Anticoagulation Name Type Priority Associated Diagnoses Date/Time CELLAVISION RBC Lab Routine Cellulitis of right 12/25/2018 2:52 PM MORPHOLOGY lower extremity EDT Name Type Priority Associated Diagnoses Order Schedule CELLAVISION RBC Lab Routine Cellulitis of right Expected: 12/25/2018 MORPHOLOGY lower extremity (Approximate), Expires: 12/26/2019 Health Maintenance Due Date Last Done Comments [...] Type Problems Progress Depression Depression 11 No maricarmen Wallace (PHQ-9) (07/27/2018 Yenni, total score < 5 11:40 AM EDT) RN Note: This is an individualized treatment (depression) goal for Lionel Figueroa: Displayed above is your goal for a depression screening (PHQ-9) score that would indicate good control of your depression. Keep a regular sleep schedule Lifestyle No Yenni Wallace RN Note: This is an individualized lifestyle goal for Lionel Keith: Please maintain a regular sleep schedule. This may help with some symptoms of depression. Take all prescribed medications as Self-management No Yenni Wallace RN directed Note: This is an individualized self-management goal for Lionel Keith: Please take all prescribed medications as directed. [...] of this encounter Implants Implanted Type Area Order Builder Loader Device Shelf Model / Identifier Expiration Date Serial / Lot [employer] Single Chamber [id number] - [id number] Chest [employer], 2011 [id number] / Implanted: Qty: 1 on 07/01/2010 at [facility] [id number] / Tendril Lead 8tc/58cm - [id number] Chest [employer], 04/23/2013 [id number] / Implanted: Qty: 1 on 07/01/2010 at [facility]. [id number] / documented as of this encounter Procedures Procedure Name Priority Date/Time Associated Diagnosis Comments CBC WITH DIFFERENTIAL Routine 12/25/2018 2:52 Cellulitis of right Results for this PM EDT lower extremity procedure are in the results section. BASIC METABOLIC PANEL Routine 12/25/2018 2:52 Hyponatremia Results for this PM EDT procedure are in the results section. documented in this encounter Results CBC WITH DIFFERENTIAL (12/25/2018 2:52 PM EDT) WBC Count 6.26 4.23 - 9.07 K/uL [facility] RBC Count 2.56 (L) 4.30 - 5.89 M/UL [facility] Hemoglobin 10.1 (L) 13.7 - 17.5 g/dL [facility] Hematocrit 30.4 (L) 40.1 - 51.0 % [facility] MCV 118.8 (H) 79.0 - 92.[address] [facility] MCH 39.5 (H) 25.7 - 32.[address] [facility] MCHC 33.2 32.3 - 36.5 g/dL [facility] Platelet Count 401 (H) 163 - 337 K/uL [facility] MPV 10.1 9.4 - 12.[address] [facility] RDW 13.9 11.6 - 14.4 % [facility] Neutrophil % 73.9 (H) 34.0 - 67.9 % [facility] Lymphocyte % 14.7 (L) 21.8 - 53.1 % [facility] Monocyte % 8.0 5.3 - 12.2 % [facility] Eosinophil % 2.6 0.8 - 7.0 % [facility] Basophil % 0.6 0.2 - 1.2 % [facility] nRBC % 0.0 0.0 - 0.2 % [facility] Neutrophil # 4.63 1.78 - 5.38 K/UL [facility] Lymphocyte # 0.92 (L) 1.32 - 3.57 K/UL [facility] Monocyte # 0.50 0.30 - 0.82 K/UL [facility] Eosinophil # 0.16 0.04 - 0.54 K/UL [facility] Basophil # 0.04 0.01 - 0.08 K/UL [facility] Immature Gran % 0.2 0.0 - 0.4 % [facility] Immature Gran # 0.01 0.00 - 0.03 K/uL [facility] NRBC # 0.00 0.00 - 0.12 K/uL [facility] Specimen Blood Performing Organization Address City/State/Inscription [facility] Cent[facility] Phone Number [facility] [address] [place] [address] BASIC METABOLIC PANEL (12/25/2018 2:52 PM EDT) Glucose 93 70 - 99 mg/dl [facility] BUN 31 (H) 9 - 20 mg/dl [facility] Creatinine 0.9 0.8 - 1.5 mg/dl [facility] Sodium 138 134 - 145 mmol/L [facility] Potassium 4.8 3.5 - 5.1 mmol/L [facility] Chloride 102 98 - 107 mmol/L [facility] CO2 26 22 - 30 mmol/L [facility] Calcium 9.1 8.3 - 10.1 mg/dl [facility] eGFR >60 See Interpretation [facility] Comment: Below ml/min/1.73ml [facility] LAB[facility]AT[facility] Estimated GFR Interpretation: Above 60ml/min/1.73m2 = Normal Renal Function 30-59 ml/min/1.73m2 = Stage 3 Chronic Kidney Disease 15-29 ml/min/1.73m2 = Stage 4 Chronic Kidney Disease Less than 15 ml/min/1.73m2 = Stage 5 Chronic Kidney Disease The GFR value is calculated using the Modification of Diet in Renal Disease ( MDRD) Study Equation which can be found at: https://www.kidney.org/content/gwvc-xekqx-mwpcxrvp BUN/Creatinine 34 (H) 6 - 22 RAT[facility] LAB[facility]ATORY Anion Gap 10 3 - 11 mmol/L [facility] Specimen Blood Performing Organization Address City/State/Inscription [facility] Centercop[facility] Phone Number [facility] [address] [place] [address] [phone] documented in this encounter Visit Diagnoses Diagnosis Cellulitis of right lower extremity - Primary Cellulitis and abscess of leg, except foot Peripheral edema Edema Hyponatremia Hyposmolality and/or hyponatremia documented in this encounter Insurance Payer Benefit Plan / Subscriber ID Effective Dates Phone Address Type Group MEDICARE MEDICARE PART A xxxxxxxxxxx 1997-Present Medicare & B [employer] COMMERCIAL AETNA xxxxxxxxxx 2007-Present [employer] Guarantor Name Account Type Relation to Date of Phone Billing Patient Address Sagar, Personal/Family 1930 [address] (Home) [facility] [address] [place], [place] (Work) [id number] documented as of this encounter
== END 2019-01-12 21:47 | disposition left against medical advice (07) ==
LOC: ED 19:41
DX: Z53.21 Procedure and treatment not carried out due to patient leaving prior to being seen by health care provider (principal); R04.0 Epistaxis
CPT/HCPCS: 99282